=== PATIENT | male | born 1980 | race Caucasian/White ===

== ENCOUNTER 2023-02-18 09:53 | Emergency (ER) | payer MEDICAID, SELFPAY ==
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
[2023-02-18 10:41] VITALS: BP 110/64; PULSE 70; RESP 16; TEMP 36.7; O2SAT 99; BMI 25.0
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
== END 2023-02-18 14:08 | disposition home or self-care (01) ==
PROVIDERS: Emergency Provider Student in an Organized Health Care Education/Training Program
DX: S62.91XA Unspecified fracture of right hand, initial encounter for closed fracture (principal); X58.XXXA Exposure to other specified factors, initial encounter; Y93.9 Activity, unspecified; Y92.9 Unspecified place or not applicable; Y99.9 Unspecified external cause status
CPT/HCPCS: 73130; 99282; 99283

== ENCOUNTER 2023-02-20 10:58 | Outpatient (AMB) | payer MEDICAID, SELFPAY ==
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
== END 2023-02-20 11:42 | disposition home or self-care (01) ==
PROVIDERS: Visit Provider Physician Assistant
DX: S62.221A Displaced Rolando's fracture, right hand, initial encounter for closed fracture (principal)
CPT/HCPCS: 99204

== ENCOUNTER → 2023-02-20 10:58 | Outpatient (BNVA) | payer MEDICAID, SELFPAY | PROVIDERS: Visit Provider Physician Assistant | DX: S62.221A Displaced Rolando's fracture, right hand, initial encounter for closed fracture (principal) | CPT/HCPCS: 99212 ==

== ENCOUNTER 2023-02-26 06:13 | Day surgery (SDC) | payer MEDICAID, SELFPAY ==
--- NOTE | 2023-02-25 12:03 | P.CONAN_ITS ---
Documented by User: Angella Waggoner NP 02/25/23 12:13 HPI - Anesthesia Eval Consult details Narrative: 42yo M for Right Thumb Closed Reduction Perc Pinning vs ORIF No medical hx provided by surgical office. External med rec includes atorvastatin, lamotrigine, clonidine, abilify. Record request from [facility] via [employer]. Attempted telephone eval with patient but disconnected. PMFSH Active Problems Active Problems: All Active Problems (Updated 02/22/23 @ 08:12 by Ben Lr PA-C) Praveen fracture of right hand (Acute) Past Medical History Medical History Depression Smoker Surgical History Surgical History No pertinent past surgical history Social History Social History Household Members Other:: mother Housing: House Alcohol intake: never Patient Tobacco Use Status: Current everyday Tobacco user Tobacco use type: Cigarette Cigarette Packs Per Day: 1 Smoked in Last 30 Days: Yes Patient Interested in Nicotine Replacement: No Substance Use Type: Marijuana Substance Use Frequency: Daily Are you DNR?: No Advance Directives: No Advance Directives Information Provided: Yes Nutrition Risks: No Nutritional Risk Meds Allergies Allergy/AdvReac Type Severity Reaction Status Date / Time No Known Allergies Allergy Verified 02/26/23 06:12 Exam Exam Date and Time: February 25, 2023 1203 Assessment and Plan Assessment Anesthesia Assessment: Chart Reviewed Documented by User: Angie Do MD 02/26/23 08:34 PMFSH Past Medical History Medical History Depression Smoker Family History Family history of problems with anesthesia: No Surgical History Surgical History No pertinent past surgical history History of Problems with Anesthesia: No Social History Social History Household Members Other:: mother Housing: House Alcohol intake: never Patient Tobacco Use Status: Current everyday Tobacco user Tobacco use type: Cigarette Cigarette Packs Per Day: 1 Smoked in Last 30 Days: Yes Patient Interested in Nicotine Replacement: No Substance Use Type: Marijuana Substance Use Frequency: Daily Are you DNR?: No Advance Directives: No Advance Directives Information Provided: Yes Nutrition Risks: No Nutritional Risk Meds Allergies Allergy/AdvReac Type Severity Reaction Status Date / Time No Known Allergies Allergy Verified 02/26/23 06:12 Exam Airway Mallampati Class: II TM Dist: >3cm Neck ROM: Full Heart: rrr Lungs: cta Assessment and Plan Assessment Anesthesia Assessment: Anesthesia Plan Discussed Final Anesthetic Review Family History of Problems with Anesthesia: No History of Problems with Anesthesia: No NPO: Yes ASA Class: III (pt with methadone use , being evasive on dose and use . appears he is on 70 mg but took 30 mg or11 mg last night . had a panic attack in pre op before block and on entry to OR.) Final Preanesthetic Review: No Changes in Pt Med Stat, Meds/Allgs Chart Reviewed, Consent Obtained/Reviewed, Anes Risks/Benef Reviewed and DNR Form (If Appl.) Patient Risk: Intermediate Procedure Risk: Low Anesthetic Plan Anesthetic Plan: GA and Regional Block Disposition: Standard PACU
[2023-02-26] VITALS (9 sets, daily range): BP systolic 101–131; BP diastolic 54–77; PULSE 51–89; RESP 11–18; TEMP 36.4–36.8; O2SAT 97–100; BMI 25.1
--- NOTE | ~2023-02-26 | FL_ITS ---
EXAMINATION: XR FLUOROSCOPY WITH IMAGES CLINICAL INFORMATION: Or internal fixation. COMPARISON: February 18, 2023 TECHNIQUE: Fluoroscopy Supervised By: Dr. Laura Keating. Fluoroscopy Time: 52.6 seconds. Cumulative Dose: 1.7026 mGy. DAP: 0.1029 Gycm2. Images: 7. FINDINGS: Intraoperative fluoroscopy demonstrates OR internal fixation with pins for the comminuted displaced fracture proximal right first metacarpal bone. FL/FL guidance in OR IMPRESSION: Intraoperative fluoroscopy for orthopedic procedure.
[2023-02-26] MEDS: Lactated Ringers 1,000 ML 100 ML IVCONT (06:33)
--- NOTE | 2023-02-26 08:16 | MHC.SHP ---
Pre-Procedural Eval Section A Date of Service: 02/26/23 The patient is an INPATIENT: No Changes since office visit: No Cold of Flu in the past 2 weeks, No New Medical Problems, No Changes in Medication and No Patient answered all questions The History & Physical has been completed within 30 days and I have reviewed it.: Yes Section B Chief Complaint: Fracture of unspecified phalanx of right thumb, in Allergies: Allergies Allergy/AdvReac Type Severity Reaction Status Date / Time No Known Allergies Allergy Verified 02/26/23 06:12 Plan I have reviewed the history and physical and performed a pertinent physical examination on my patient. No changes have occurred unless specified. Time Spent With Patient Time: Total time managing care of this patient today ____ minutes.
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
== END 2023-02-26 10:48 | disposition home or self-care (01) ==
PROVIDERS: Visit Provider Orthopaedic Surgery
PROC: (CPT 26727; principal; 2023-02-26 07:30)
DX: S62.501A Fracture of unspecified phalanx of right thumb, initial encounter for closed fracture (principal); Y04.2XXA Assault by strike against or bumped into by another person, initial encounter; E78.5 Hyperlipidemia, unspecified; F17.210 Nicotine dependence, cigarettes, uncomplicated; Y93.9 Activity, unspecified; Y92.9 Unspecified place or not applicable; Y99.9 Unspecified external cause status
CPT/HCPCS: 26727; J0665; J0690; J2250; J2405; J2704; J2795; J3010

== ENCOUNTER → 2023-02-26 06:13 | Outpatient (BNV) | payer MEDICAID, SELFPAY | PROVIDERS: Visit Provider Orthopaedic Surgery | DX: S62.231A Other displaced fracture of base of first metacarpal bone, right hand, initial encounter for closed fracture (principal) | CPT/HCPCS: 26727 ==

== ENCOUNTER 2023-03-02 11:13 | Outpatient (REF) | payer MEDICAID, SELFPAY ==
--- NOTE | ~2023-03-02 | XR_ITS ---
EXAMINATION: XR HAND, RIGHT CLINICAL INFORMATION: Pain in the right hand. COMPARISON: X-rays of the right hand 02/18/2023, intraoperative imaging 02/26/2023. TECHNIQUE: 4 views of the right hand. FINDINGS: There are 2 K-wires crossing the area of the comminuted proximal first metacarpal fracture. The overall appearance and alignment is unchanged compared with the intraoperative images with hardware in place. There is overall improved alignment compared with the preoperative examination. The distal metacarpal fragment remains displaced posteriorly by 2 mm and radially 2.5 mm. The remaining bones, joints and soft tissues are unremarkable. XR/XR hand RT min 3V IMPRESSION: Postoperative changes related to orthopedic fixation of first metacarpal fracture with stable alignment compared with the intraoperative imaging and improved alignment compared with the preoperative x-ray.
== END 2023-03-02 11:14 | disposition home or self-care (01) ==
LOC: HO.HOSX 11:13
PROVIDERS: Visit Provider Physician Assistant
DX: S62.221D Displaced Rolando's fracture, right hand, subsequent encounter for fracture with routine healing (principal); M79.641 Pain in right hand; X58.XXXD Exposure to other specified factors, subsequent encounter
CPT/HCPCS: 73130

== ENCOUNTER 2023-03-02 12:43 | Outpatient (AMB) | payer MEDICAID, SELFPAY ==
--- NOTE | 2023-03-02 12:58 | MHC.OFFVIS ---
Intake Vital Signs 03/02/23 13:03 Height 5 ft 6 in Weight 165 lb BMI 26.6 Handedness Right Intake Visit Reasons: P/O rt Thumb CRPP 02/26/23 increase pain Intake Note: Jaison is a 42 year old right hand dominant male presents today for a post op appointment s/p rt Thumb CRPP 02/26/23. Patient reports he is not having to much pain. Denies numbness and tingling. Allergies No Known Allergies Allergy (Verified 03/02/23 13:03) HPI P/O rt Thumb CRPP 02/26/23 increase pain HPI Details 42-year-old right hand dominant male, who is Nigerien speaking, presents in the office today 4 days status post right 1st metacarpal fracture closed reduction percutaneous pinning, which was performed on 02/26/[address] Keating. While in the office today the patient reports he is not having to much pain. He denies numbness or tingling. PFSH Medical History Depression Smoker Surgical History No pertinent past surgical history Social History Household Members Other:: mother Housing: House Alcohol intake: never Patient Tobacco Use Status: Current everyday Tobacco user Tobacco use type: Cigarette Cigarette Packs Per Day: 1 Substance Use Type: Marijuana Review of Systems Const All systems reviewed & are unremarkable except as noted in HPI and below Physical Exam Vital Signs: BMI result Body Mass Index 26.6 Const General: cooperative, healthy appearing and no acute distress Resp Effort & Inspection: normal respiratory effort and able to speak in complete sentences Cardio Rate: regular rate Peripheral pulses: Peripheral pulses 2+ throughout GI Palpation (GI): Soft to palpation Skin Lesions: no lesions Rashes: no rashes Extrem Other: Right thumb: Pin site is clean, dry, and intact. No surround erythema or drainage. No signs of infection. Sensation reporting numbness and tingling along the ulnar and radial digital nerve distributions. Capillary refill is brisk. Office Procedures Casting/Splints 67625-Rjxylvp Splint Application Procedure code (CPT) selection complete Assessment & Plan Assessment & Plan (1) Praveen fracture of right hand: Comment: Right 1st metacarpal fracture closed reduction percutaneous pinning 02/26/2023 AR Code(s): S62.221A - Displaced Praveen's fracture, right hand, initial encounter for closed fracture Qualifiers: Encounter type: initial encounter Fracture alignment: displaced Fracture type: closed Qualified Code(s): S62.221A - Displaced Praveen's fracture, right hand, initial encounter for closed fracture Plan Mr. Renan Oliver is a 42-year-old right hand dominant male, who is Nigerien speaking, presents in the office today 4 days status post right 1st metacarpal fracture closed reduction percutaneous pinning, which was performed on 02/26/[address] Keating. While in the office today the patient reports he is not having to much pain. He denies numbness or tingling. The patient was placed back into a splint while in the office today, after cleaning the pin site. He was educated on signs of infection, which are as follows but not limited to erythema, edema, drainage, or warmth. If he is to experience any of these symptoms he is to contact the office immediately or present to the ED. He was also educated should the pins begin to come out he is not to push them back in due to infection risk. Follow up will be at his regularly scheduled appointment, or sooner if needed. X-rays of the right hand which were obtained while in the office today and were reviewed by me, Milana Woodruff PA-C, revealed pin placement is identical to intra-operative photos taken. Orders: Orders XR hand RT min 3V Today M79.643 - Pain in unspecified hand Patient Instructions: Scribed for Milana Woodruff PA-C by Kerri Melissa ophthalmic medical technologist, on 03/02/2023 at 12:47 pm, EST. Coding Level of Care Code Global (46617) Diagnoses Closed displaced Praveen's fracture of right thumb, initial encounter S62.221A Encounter type: initial encounter Fracture alignment: displaced Fracture type: closed CPT Codes Splint - CPT: 53327-Sygtmtq Splint Application ([id number])
[2023-03-02 13:03] VITALS: BMI 26.6
== END 2023-03-02 14:27 | disposition home or self-care (01) ==
PROVIDERS: Visit Provider Physician Assistant
DX: S62.221A Displaced Rolando's fracture, right hand, initial encounter for closed fracture (principal)
CPT/HCPCS: 29125; 99024

== ENCOUNTER 2023-03-09 10:59 | Outpatient (REF) | payer MEDICAID, SELFPAY ==
--- NOTE | ~2023-03-09 | XR_ITS ---
EXAMINATION: XR HAND, RIGHT CLINICAL INFORMATION: Comminuted fracture at the base of the first metacarpal bone COMPARISON: 02/18/2023 and 03/02/2023 TECHNIQUE: PA, lateral, and oblique views of the right hand. FINDINGS: Patient is status post placement of 2 K wires crossing the fracture through the base of the fifth metacarpal bone the position of fragments and hardware is stable. Another fracture seen at the base of the distal phalanx of fifth finger stable. No new fractures identified. XR/XR hand RT min 3V IMPRESSION: No interval change
== END 2023-03-09 11:00 | disposition home or self-care (01) ==
LOC: HO.HOSX 10:59
PROVIDERS: Visit Provider Physician Assistant
DX: S62.221D Displaced Rolando's fracture, right hand, subsequent encounter for fracture with routine healing (principal); M20.011 Mallet finger of right finger(s)
CPT/HCPCS: 29085; 73130

== ENCOUNTER 2023-03-09 13:05 | Outpatient (AMB) | payer MEDICAID, SELFPAY ==
--- NOTE | 2023-03-09 13:16 | A.OFFVIS_ITS ---
Intake Vital Signs 03/09/23 13:17 Height 5 ft 6 in Weight 165 lb BMI 26.6 Intake Visit Reasons: PO-Rt Thumb CRPP vs ORIF 02/26 NE Intake Note: Jaison hightower 42 year old right hand dominant male presents today for a post op appointment of right thumb CRPP, DOS 02/26/23. Patient reports he is doing well, states mild soreness. Allergies No Known Allergies Allergy (Verified 03/09/23 13:19) HPI PO-Rt Thumb CRPP vs ORIF 02/26 NE HPI Details 42-year-old right hand dominant male who returns to the office today with an dust mop maker for post-op right thumb CRPP, 02/26/[address] Keating. He continues to have mild soreness and experiences a sharp stabbing pain in his thumb with up and down movement. He finds relief with ibuprofen and Tylenol. He is doing well overall and has no other concerns today. [facility] Medical History Depression Smoker Surgical History No pertinent past surgical history Household Members Other:: mother Housing: House Alcohol intake: never Patient Tobacco Use Status: Current everyday Tobacco user Tobacco use type: Cigarette Cigarette Packs Per Day: 1 Substance Use Type: Marijuana Review of Systems Const All systems reviewed & are unremarkable except as noted in HPI and below Physical Exam Vital Signs: BMI result Body Mass Index 26.6 Extrem Other: Right thumb: Normal to inspection. Pin is intact. There is no redness or drainage. NVI. Right small finger: Slight mallet deformity over the DIP joint. NVI. Office Procedures Casting/Splints [id number]-Ujvw/Wrist Cast Application Procedure code (CPT) selection complete Assessment & Plan Assessment & Plan (1) Praveen fracture of right hand: Comment: Right 1st metacarpal fracture closed reduction percutaneous pinning 02/26/2023 AR Code(s): S62.221A - Displaced Praveen's fracture, right hand, initial encounter for closed fracture Qualifiers: Encounter type: subsequent encounter Fracture alignment: displaced Fracture type: closed Fracture healing: with routine healing Qualified Code(s): S62.221D - Displaced Praveen's fracture, right hand, subsequent encounter for fracture with routine healing (2) Mallet deformity of right little finger: Code(s): M20.011 - Mallet finger of right finger(s) Plan The pin site was cleaned and well-padded with xeroform and gauze. He was placed in a short arm thumb spica cast which he will wear for the next 4 weeks. I did talk with him about keeping the cast clean and dry. If there are any concerns of discomfort in the cast, increased pain or if he gets it soiled, he should come in immediately for a cast change to prevent infection. For his right small finger, he was placed in a mallet finger brace which he will wear for the next 6 weeks. I would like to see him back in 4 weeks for cast off, x-rays and potential removal of pins, sooner if needed. Orders: Orders XR hand RT min 3V Today M79.641 - Pain in right hand Patient Instructions: Scribed for Ben Lr PA-C, by Josiah Michael medical staff director, on 03/09/2023 at 1:15 PM EST. I, Ben Lr PA-C, have personally reviewed and agree with the information entered by the scribe. Coding Level of Care Code Global (47700) Diagnoses Closed displaced Praveen's fracture of right thumb with routine healing, subseq uent encounter S62.221D Encounter type: subsequent encounter Fracture alignment: displaced Fracture type: closed Fracture healing: with routine healing Mallet deformity of right little finger M20.011 CPT Codes Casting - CPT: 15319-Abfz/Wrist Cast Application ([id number])
[2023-03-09 13:17] VITALS: BMI 26.6
== END 2023-03-09 14:44 | disposition home or self-care (01) ==
PROVIDERS: Visit Provider Physician Assistant
DX: S62.221D Displaced Rolando's fracture, right hand, subsequent encounter for fracture with routine healing (principal); M20.011 Mallet finger of right finger(s)
CPT/HCPCS: 29085; 99024

== ENCOUNTER 2023-04-06 13:34 | Emergency (ER) | payer MEDICAID, SELFPAY ==
[2023-04-06 13:50] VITALS: BP 113/60; BP 154/60; PULSE 113; PULSE 58; RESP 10; O2SAT 98; O2SAT 99; BMI 25.1
--- NOTE | 2023-04-06 13:54 | ED.OVERDOSE ---
HPI - Overdose General Chief Complaint: Overdose Stated Complaint: OVERDOSE, FOUND NODDING OFF IN STREET PER EMS Time Seen by Provider: 04/06/23 13:51 Source: patient and RN notes reviewed Mode of arrival: ambulatory Limitations: no limitations History of Present Illness HPI Narrative: This is a 43-year-old male, with a history of substance use disorder, presenting to the emergency department via EMS after being found on the street nodding off . patient admits to using half a bag of heroin today. Patient states that he did not fall today and is feeling well. He has no current complaints and would like to return home. Denies any suicidal or homicidal ideations. No visual or auditory hallucinations. No other complaints or concerns at this time. MD complaint: accidental overdose Onset (ago): hour(s) Context: Accidental Overdose: wanted to get high Treatments Prior to Arrival: none Related Data Previous Rx's Medication Instructions Recorded acetaminophen 500 mg tablet 1,000 mg (2 x 500 mg) PO QID PRN 02/18/23 pain #30 tabs ibuprofen 600 mg tablet 600 mg PO Q6H PRN pain #20 tabs 02/18/23 Allergies Allergy/AdvReac Type Severity Reaction Status Date / Time No Known Allergies Allergy Verified 04/08/23 13:59 Review of Systems Review of Systems: Yes all other systems are reviewed and are negative Constitutional: Constitutional: Reports as per [facility] Past Medical History Attestation statement: The following information was validated with the patient. Medical History Depression Smoker Surgical History No pertinent past surgical history Social History Social History Household Members Other:: mother Housing: House Alcohol intake: never Patient Tobacco Use Status: Current everyday Tobacco user Tobacco use type: Cigarette Cigarette Packs Per Day: 1 Substance Use Type: Marijuana Physical Exam Vital Signs: Vital Signs: Last Vital Signs Pulse 113 H 04/06/23 13:50 Resp 10 L 04/06/23 13:50 BP 113/60 04/06/23 13:50 Pulse Ox 99 04/06/23 13:50 O2 Del Method Room Air 04/06/23 13:50 BMI result Body Mass Index 25.1 Const: General: cooperative, comfortable and no acute distress Orientation/consciousness: patient oriented x3 Limitations: no limitations HEENT: Head: Yes normal to inspection, Yes normocephalic and Yes atraumatic Ears: hearing grossly normal bilaterally General nose exam: Normal external nose present Face and sinus: Yes normal facial exam Mouth: Normal oral and palatal mucosa present, oropharynx normal and moist mucous membranes Throat: Yes posterior oropharynx normal Eyes: General: appearance normal, both eyes and all related structures Eyelids: Yes eyelids normal Conjunctivae: conjunctivae normal Sclerae: sclerae normal Pupils: Equal, round and reactive pupils present EOM: EOMs intact bilaterally Neck: Neck: Yes normal visual inspection, Yes full ROM and Yes no lymphadenopathy Lymphatic: no lymphadenopathy noted Chest: Chest palpation & inspection: normal inspection of the chest Resp: Effort & Inspection: normal respiratory effort and able to speak in complete sentences Auscultation: clear to auscultation bilaterally, no crackles, no rales, no rhonchi and no wheezes Cardio: Rate: regular rate Rhythm: regular rhythm Heart sounds: S1 normal heart sound present and S2 normal heart sound present GI: Inspection: Yes normal to inspection Skin: General skin exam: no rashes or lesions noted Trauma: no lacerations or abrasions Wounds: no wounds Neuro: General: patient oriented x3 and moves all extremities Cranial nerves: Yes Equal, round and reactive pupils present Extrem: General: Yes normal to inspection Right upper extremity: normal to inspection Left upper extremity: normal to inspection Right lower extremity: normal to inspection Left lower extremity: normal to inspection Course Reevaluation(s) Reevaluation #1: After 20 minutes of receiving narcan, pt demanding to be discharged. He is alert, ambuatory, speaking in full sentences and fully neurologically intact. He is clinically sober. I explained to patient that he had overdosed and that narcan can wear off, causing him to overdose again. I explained the risks and benefits of leaving against medical advice, he states that knowing the risks of leaving without being monitored can cause , he still wishes to be discharged. Given he is clinically sober he can make these decisions. AMA paperwork filed. Medications Administered Discontinued Medications Generic Name Dose Route Start Last Admin Trade Name Freq PRN Reason Stop Dose Admin Naloxone HCl 4 mg 04/06/23 13:55 04/06/23 13:55 Naloxone Hcl Nasal 4 Mg Hamilton NOSTRILALT 04/06/23 13:56 4 mg ONCE ONE Administration Medical Decision Making Medical Decision Making [facility] Narrative: This is a 43-year-old male presenting to the emergency department after being found on the street nodding off. On arrival, patient's oxygen saturation dipped to 90% on room air, with a respiratory rate of 10 respirations per minute. He was easily arousable however but immediately nods off. Pt given Narcan 4mg intranasally with positive result. He denies any SI/HI. Oxygen saturation improved to 99%. Will monitor pt for 2 hours to ensure good relief after narcan Differential Diagnosis Differential Diagnoses: The differential diagnosis associated with the presentation includes opioid overdose, fatigue, polysubstance abuse Lab Data [facility] Lab Attestation statement: I reviewed the patient's lab results. Radiology Impression Discussion of test interpretation with radiology: I have reviewed the radiologist's reading. External Record Review External record reviewed: Inpatient record, Office record, Outpatient record, Prior outpatient labs, Prior outpatient radiology, Primary care record and Outside ED record Discharge Plan Discharge Clinical Impression: Drug overdose Patient Disposition: Left Against Medical Advice Instructions: Adult Overdose (ED) Additional Instructions: you left the emergency room today against medical advice after he overdosed. He received Narcan which reverses opioid overdoses. we recommended you stay in the emergency room for observation however you adamantly refused. The educated you that leaving against medical advice can have deadly consequences, despite knowing these risks you still requested to be discharged immediately. stop using drugs as they will kill you. I sent over a prescription of Narcan to the pharmacy, you can pick this up at your earliest convenience. If any new or worsening symptoms occur, please return for re-evaluation. Prescriptions: No Action acetaminophen 500 mg tablet 1,000 mg PO QID PRN (Reason: pain) Qty: 30 0RF ibuprofen 600 mg tablet 600 mg PO Q6H PRN (Reason: pain) Qty: 20 0RF Stand Alone Forms: Against Medical Advice Interventions: ED Discharge Assessment Last Done: 04/06/23 14:38 Discharge Date/Time: 04/06/23 14:10
[2023-04-06] MEDS: Naloxone HCl Nasal 4 MG SPRAY NOSTRILALT (13:55)
--- NOTE | 2023-04-06 14:12 | PC.NURSE ---
pt comes in via ems after overdosing. pt nodding off during triage assessment nd unable to stay awake. PA alerted and narcan ordered. narcan given via left nare. Pt became more alert and awake and drank some gingerale. during security changeover, pt decided to leave. Pa and RN encouraged pt to stay for observation but pt chose to leave AMA
== END 2023-04-06 14:10 | disposition left against medical advice (07) ==
PROVIDERS: Emergency Provider Emergency Medicine
DX: T40.1X1A Poisoning by heroin, accidental (unintentional), initial encounter (principal); Y92.410 Unspecified street and highway as the place of occurrence of the external cause
CPT/HCPCS: 99282; 99283

== ENCOUNTER 2023-04-08 06:34 | Outpatient (REF) | payer MEDICAID, SELFPAY | END 2023-04-08 06:35 | disposition home or self-care (01) | LOC: HO.HOSX 06:34 | PROVIDERS: Visit Provider Physician Assistant | DX: S62.221D Displaced Rolando's fracture, right hand, subsequent encounter for fracture with routine healing (principal); M79.641 Pain in right hand; M20.011 Mallet finger of right finger(s); X58.XXXD Exposure to other specified factors, subsequent encounter | CPT/HCPCS: 73130; 99212 ==

== ENCOUNTER 2023-04-08 13:24 | Outpatient (AMB) | payer MEDICAID, SELFPAY ==
--- NOTE | 2023-04-08 13:36 | A.OFFVIS_ITS ---
Intake Intake Visit Reasons: PO-Rt Thumb CRPP vs ORIF 02/26/23 NE Intake Note: Jaison a 42 year old right hand dominant male presents today for a post op appointment of right thumb CRPP, DOS 02/26/23. Patient reports he is doing well, states no pain or discomfort. Allergies No Known Allergies Allergy (Verified 04/08/23 13:59) Medication List - Last Reconciled 04/08/23 by Ben Lr PA-C acetaminophen 1,000 mg (2 x 500 mg) PO QID PRN ibuprofen 600 mg PO Q6H PRN HPI PO-Rt Thumb CRPP vs ORIF 02/26/23 NE HPI Details 43-year-old right hand dominant male who returns to the office today with an horse stud manager for post-op right thumb CRPP, 02/26/[address] Keaitng. He states he has no pain and is doing well overall. He has no concerns today. 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 [facility] Medical History Depression Smoker Surgical History No pertinent past surgical history Social History Household Members Other:: mother Housing: House Alcohol intake: never Patient Tobacco Use Status: Current everyday Tobacco user Tobacco use type: Cigarette Cigarette Packs Per Day: 1 Substance Use Type: Marijuana Review of Systems Const All systems reviewed & are unremarkable except as noted in HPI and below Physical Exam Extrem Other: Right thumb: Pin site is clean, dry and intact. No drainage. No tenderness along the base of the thumb. Right small finger: He can fully flex and extend the digits. No extension lag noted. No tenderness over the DIP. Results Reviewed Results Reviewed: XR hand RT obtained in the office today 1. Comminuted fracture base of first metacarpal.which shows bony healing, pinn intact 2. Intra-articular fracture base distal phalanx fifth digit.with interval healing Assessment & Plan Assessment & Plan (1) Praveen fracture of right hand: Comment: Right 1st metacarpal fracture closed reduction percutaneous pinning 02/26/2023 AR Code(s): S62.221A - Displaced Praveen's fracture, right hand, initial encounter for closed fracture Qualifiers: Encounter type: subsequent encounter Fracture alignment: displaced Fracture healing: with routine healing Fracture type: closed Qualified Code(s): S62.221D - Displaced Praveen's fracture, right hand, subsequent encounter for fracture with routine healing (2) Mallet deformity of right little finger: Code(s): M20.011 - Mallet finger of right finger(s) Plan Pin sites were cleanred and the pinn was removed in office today without complications. X-rays were obtained after the pin was removed which show stable fracture alignment and interval healing. He was placed in a thumb spice Velcro wrist splint which he will remove for hygiene and physical therapy exercises. He will avoid any type of lifting greater than a cellphone as he is still healing from the surgery. He will remain out of work till his next appointment in [address] Keating, sooner if needed. He was also referred to a course of occupational therapy in the office today for his right hand. Orders: Orders XR hand RT min 3V Today M79.641 - Pain in right hand OT Evaluation and Treatment Today S62.221A - Displaced Praveen's fracture, right hand, initial encounter for closed fracture XR hand RT min 3V Today M79.641 - Pain in right hand Patient Instructions: Scribed for Ben Lr PA-C, by Josiah Michael clinical laboratory medical director, on 04/08/2023 at 1:30 PM RASHAD. IBen PA-C, have personally reviewed and agree with the information entered by the scribe. Coding Level of Care Code Global (23801) Diagnoses Closed displaced Praveen's fracture of right thumb with routine healing, subsequent encounter S62.221D Encounter type: subsequent encounter Fracture alignment: displaced Fracture healing: with routine healing Fracture type: closed Mallet deformity of right little finger M20.011
== END 2023-04-08 14:38 | disposition home or self-care (01) ==
PROVIDERS: Visit Provider Physician Assistant
DX: S62.231D Other displaced fracture of base of first metacarpal bone, right hand, subsequent encounter for fracture with routine healing (principal)
CPT/HCPCS: 99024

== ENCOUNTER 2023-05-20 11:50 | Outpatient (REF) | payer MEDICAID, SELFPAY ==
--- NOTE | ~2023-05-20 | XR_ITS ---
EXAMINATION: XR HAND, RIGHT CLINICAL INFORMATION: Pain. COMPARISON: Prior radiographs, most recently 04/08/2023. TECHNIQUE: PA, lateral, and oblique views of the right hand. FINDINGS: A comminuted fracture is redemonstrated of the shaft and base of the right first metacarpal bone, with fracture lines now largely resolved. There is a stable fracture deformity, with remodeling. No dislocation is seen. There is no bone erosion. The proximal and distal carpal rows are intact. This no focal soft tissue swelling, gas or foreign body. XR/XR hand RT min 3V IMPRESSION: A healing comminuted fracture is redemonstrated of the proximal right first metacarpal bone, with bony remodeling and fracture lines largely resolved.
== END 2023-05-20 11:51 | disposition home or self-care (01) ==
LOC: HO.HOSX 11:50
PROVIDERS: Visit Provider Orthopaedic Surgery
DX: M79.641 Pain in right hand (principal); S62.221A Displaced Rolando's fracture, right hand, initial encounter for closed fracture; S62.636A Displaced fracture of distal phalanx of right little finger, initial encounter for closed fracture; Y04.2XXA Assault by strike against or bumped into by another person, initial encounter; Y93.9 Activity, unspecified; Y92.9 Unspecified place or not applicable; Y99.9 Unspecified external cause status
CPT/HCPCS: 73130; 99212

== ENCOUNTER 2023-05-20 12:53 | Outpatient (AMB) | payer MEDICAID, SELFPAY ==
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
[2023-05-20 13:11] VITALS: BMI 25.1
== END 2023-05-20 13:50 | disposition home or self-care (01) ==
PROVIDERS: Visit Provider Orthopaedic Surgery
DX: S62.221D Displaced Rolando's fracture, right hand, subsequent encounter for fracture with routine healing (principal); S62.636A Displaced fracture of distal phalanx of right little finger, initial encounter for closed fracture
CPT/HCPCS: 99024

== ENCOUNTER 2023-05-21 13:30 | Outpatient (RCR) | payer MEDICAID, SELFPAY ==
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
--- NOTE | 2023-05-21 16:13 | MHC.OT.DC ---
[address] [phone] F: [phone] Occupational Therapy Discharge Note Patient Name: Jaison Oliver Provider: Ben Lr Diagnosis: (R) Praveen fracture with CRPP Date of Surgery: 02/26/23 Date of Evaluation: 05/04/23 Date of Discharge: Treatments to Date: 5 Cancellations to Date: 0 No Shows to Date: 0 Discharge Status: Achieved Goals Improved Function Patient Elected to Stop Discharge Summary: Upon arrival patient stated he had 0/10 pain at rest and a discomfort during movement. Per patient report he had his follow up with his physician who cleared him to return to work on Thursday. Patient stated he would like today's session to be his last. HEP was reviewed and he was educated in the benefits of performing his HEP. Patient's manager contracting strength and ROM of motion were assessed. Currently patient has increased his IP flexion by 10* as it is 41*, and radial abduction by 20* as it is currently 65*. His (R) manager contracting strength is 80lbs. As patient has increased his ROM, manager contracting strength and his pain has decreased achieving his goals patient is discharged from skilled OT services. Thank you for your referral. Electronically Signed By: TAJ Sifuentes/Peyman, CLT Reviewed/agree with student documentation: N/A Therapist: Please Sign and return to therapist, thank you for your referral.
== END 2023-06-02 16:19 | disposition home or self-care (01) ==
LOC: HO.OT 13:30
PROVIDERS: PCP Registered Nurse; Visit Provider Physician Assistant
DX: S62.221D Displaced Rolando's fracture, right hand, subsequent encounter for fracture with routine healing (principal)
CPT/HCPCS: 97110; 97140; 97166; 97530; 97535

== ENCOUNTER 2024-03-07 10:18 | Outpatient (AMB) | payer MEDICAID, SELFPAY ==
--- NOTE | 2024-03-07 10:17 | A.OFFVIS_ITS ---
Vital Signs 03/07/24 10:23 Height 5 ft 6 in Weight 170 lb BMI 27.4 BP 134/74 Blood Pressure Location Rt brachial Position Sitting Pulse 72 Intake Visit Reasons: Right inguinal hernia Intake Note: Patient referred by Deni Worthy for right inguinal hernia. Present for 3m. Patient c/o: enlarging, painful w/touch. Licensed Final Expense Agents Required: Yes Licensed Final Expense Agents Name: Alida PRITCHETT Accompanied by: Self / Same As Patient Allergies No Known Allergies Allergy (Verified 03/07/24 10:22) HPI Comments Details: Patient presents because of a symptomatic right inguinal hernia. He has had this least 3 months time. It is increasing in size, become more symptomatic. He would like to have it repaired. Patient is taking Suboxone injections and this causes him to be constipated and he thinks this straining and pushing from this is the etiology of his hernia. Patient otherwise is tolerating a diet. He is occasionally constipated as noted above. He has no other GI issues or complaints. Chart was reviewed and patient evaluated [facility] Medical History Depression Smoker Surgical History No pertinent past surgical history Social History Household Members Other:: mother Housing: House Alcohol intake: never Patient Tobacco Use Status: Current everyday Tobacco user Tobacco use type: Cigarette Cigarette Packs Per Day: 1 Substance Use Type: Marijuana Physical Exam Vital Signs: Last Vital Signs Pulse 72 03/07/24 10:23 BP 134/74 03/07/24 10:23 BMI result Body Mass Index 27.4 Chest Other: Chest breath sounds bilaterally, HS 1 in 2 GI Other: Patient was examined both supine and standing with Valsalva. Abdomen is soft. Patient has some indurated area of his mid abdominal wall soft tissue which he says is secondary from his injection sites. Left groin negative. Genitalia within normal limits. Very large incarcerated right inguinal hernia Assessment & Plan Assessment & Plan (1) Incarcerated right inguinal hernia: Code(s): K40.30 - Unilateral inguinal hernia, with obstruction, without gangrene, not specified as recurrent Category: Surgical Plan Risks, benefits, and alternatives of open right inguinal hernia repair with mesh reviewed with the patient and included but not limited to bleeding, infection, recurrence, numbness, pain, scarring the patient wished to proceed. All questions answered. Arrangements were made for this. Coding Level of Care Code New Pt Level 5 (51228) Diagnoses Incarcerated right inguinal hernia K40.30
[2024-03-07 10:23] VITALS: BP 134/74; PULSE 72; BMI 27.4
== END 2024-03-07 10:37 | disposition home or self-care (01) ==
LOC: HO.HGS 10:18
PROVIDERS: PCP Registered Nurse; Visit Provider Surgery
DX: K40.30 Unilateral inguinal hernia, with obstruction, without gangrene, not specified as recurrent (principal)
CPT/HCPCS: 99204

== ENCOUNTER → 2024-03-07 10:18 | Outpatient (BNVA) | payer MEDICAID, SELFPAY | PROVIDERS: PCP Registered Nurse; Visit Provider Surgery | DX: K40.30 Unilateral inguinal hernia, with obstruction, without gangrene, not specified as recurrent (principal); Z79.899 Other long term (current) drug therapy | CPT/HCPCS: 99202 ==

== ENCOUNTER 2024-03-18 11:13 | Outpatient (REF) | payer MEDICAID, SELFPAY ==
[2024-03-18 13:11] LABS: MANUAL DIFF FLAG NO
[2024-03-18 13:21] LABS: Basophils Percent Auto 0.4 % (0-2); Eosinophils Absolute Auto 0.1 X10*3/uL (0.0-0.4); Eosinophils Percent Auto 2.1 % (0-4); Hematocrit 45.2 % (42.0-52.0); Hemoglobin 15.7 g/dl (14.0-18.0); Imm Gran Abs Auto 0.02 X10*3/uL (0.00-0.03); Imm Gran Pct Auto 0.4 % (0.0-0.4); Lymphocytes Percent Auto 40.6 % (20-40); Mean Corpuscular HGB Conc 34.7 g/dl (31.0-36.0); Mean Corpuscular Hemoglobin 30.4 pg (27.0-33.0); Mean Corpuscular Volume 87.4 fL (80.0-98.0); Mean Platelet Volume 11.3 fL (9.4-12.4); Monocytes Absolute Auto 0.5 X10*3/uL (0.1-1.2); Monocytes Percent Auto 9.4 % (2-11); Neutrophils Absolute Auto 2.3 x10*3/uL (2.0-8.3); Neutrophils Percent Auto 47.1 % (45-73); Platelet Count 178 X10*3/uL (160-400); Red Blood Count 5.17 X10*6/uL (4.60-5.80); Red Cell Distribution Width 13.3 % (11.0-16.0); White Blood Count 4.8 X10*3/uL (4.8-10.8)
[2024-03-18 13:37] LABS: Alanine Aminotransferase 25 U/L (0-40); Albumin Level 4.4 g/dL (3.5-5.0); Alkaline Phosphatase 69 U/L (39-117); Aspartate Amino Transferase 28 U/L (5-37); Bilirubin Direct 0.2 mg/dL (0.0-0.5); Bilirubin Total 0.5 mg/dL (0.0-1.0); Blood Urea Nitrogen 12 mg/dL (9-16); Estimated Glomerular Filt Rate > 60; Total Protein 7.3 g/dL (6.5-8.0)
[2024-03-21 08:01] LABS: Hepatitis A Antibody IgG Nonreactive (Nonreactive); ~Hepatitis A Antibody IgG 0.43 S/CO (0.00-0.99)
[2024-03-21 08:34] LABS: HBS Num1 814.43 mIU/mL (0-7.99); HBc Num1 0.04 S/CO (0.00-0.79); HBsAGNum1 0.41 S/CO (0.00-0.99); HIV AB/AG Nonreactive (Nonreactive); HIV Num 1 0.07 S/CO (0.00-0.99); Hepatitis B Core Antibody Nonreactive (Nonreactive); Hepatitis B Surface Antigen Negative (Negative); ~HepC Num1 0.18 S/CO (0.00-0.79); ~Hepatitis B Surface Antibody REACTIVE (Nonreactive); ~Hepatitis C Antibody Nonreactive (Nonreactive)
[2024-03-21 17:13] LABS: RPR Rapid Plasma Reagin NON-REACTIVE (NON-REACTIVE)
[2024-03-23 16:08] LABS: TS Negative Control PASSED; TS Panel A 1; TS Panel B 0; TS Positive Control PASSED; TSpotTB NEGATIVE
== END 2024-03-18 11:14 | disposition home or self-care (01) ==
LOC: HO.HHCL 11:13
PROVIDERS: Visit Provider Emergency Medicine
DX: F11.90 Opioid use, unspecified, uncomplicated (principal)
CPT/HCPCS: 36415; 80076; 82565; 84520; 85025; 86481; 86592; 86704; 86706; 86708; 86803; 87340; 87389

== ENCOUNTER 2024-04-01 10:47 | Outpatient (REF) | payer MEDICAID, SELFPAY ==
[2024-04-01 11:57] LABS: Cholesterol 160 mg/dL (<200); HDL Cholesterol 57 mg/dL (>40); LDL Cholesterol Calculated 92 mg/dL (<100); Triglycerides 58 mg/dL (<150)
[2024-04-01 13:52] LABS: CT PCR NOT DETECTED (Not Detect.); NG PCR NOT DETECTED (Not Detect.)
== END 2024-04-01 10:48 | disposition home or self-care (01) ==
LOC: HO.HHCL 10:47
PROVIDERS: Emergency Medicine; Visit Provider Nurse Practitioner
DX: F11.90 Opioid use, unspecified, uncomplicated (principal); E78.2 Mixed hyperlipidemia
CPT/HCPCS: 36415; 80061; 87491; 87591

== ENCOUNTER 2024-05-16 10:44 | Outpatient (AMB) | payer MEDICAID, SELFPAY ==
--- NOTE | 2024-05-16 10:45 | MHC.OFFVIS ---
Vital Signs 05/16/24 10:46 Height 5 ft 6 in Weight 174 lb BMI 28.1 BP 118/61 Blood Pressure Location Rt brachial Position Sitting Pulse 75 Intake Visit Reasons: unilateral inguinal hernia Intake Note: Patient referred by pcp Rika Ward NP for Unilateral inguinal hernia. Present for 6-7m. Patient c/o: feels like there's other lumps near it. Denies nausea, vomiting, diarrhea. Supervisor Plate Forming Required: No Accompanied by: Self / Same As Patient Allergies No Known Allergies Allergy (Verified 05/16/24 10:54) HPI Comments Details: Patient was presents with a 6-7 month history of a right inguinal/groin hernia. Because of progression of symptoms, he presents here for further evaluation. Patient otherwise tolerating a diet. Having regular bowel habits. He is quite active but has not been doing any workouts because of the symptomatic nature of the hernia. Chart was reviewed and patient evaluated. He is currently in a drug rehab clinic setting. [facility] Medical History Depression Smoker Surgical History No pertinent past surgical history Social History Household Members Other:: mother Housing: House Alcohol intake: never Patient Tobacco Use Status: Current everyday Tobacco user Tobacco use type: Cigarette Cigarette Packs Per Day: 1 Substance Use Type: Marijuana Physical Exam Vital Signs: Last Vital Signs Pulse 75 05/16/24 10:46 BP 118/61 05/16/24 10:46 BMI result Body Mass Index 28.1 Chest Other: Chest breath sounds bilaterally, HS 1 in 2 GI Other: Patient was examined both supine and standing with Valsalva. Abdomen is soft, benign. Left groin negative. Genitalia within normal limits. Large reducible right inguinal hernia Assessment & Plan Assessment & Plan (1) Incarcerated right inguinal hernia: Code(s): K40.30 - Unilateral inguinal hernia, with obstruction, without gangrene, not specified as recurrent Category: Surgical Plan Risks, benefits, and alternatives of open right inguinal hernia repair with mesh were reviewed with the patient included but not limited to bleeding, infection, recurrence, numbness, pain, scarring the patient wished to proceed. All questions answered. Arrangements were made for this on a day which is convenient for him. Coding Level of Care Code New Pt Level 5 (60962) Diagnoses Incarcerated right inguinal hernia K40.30
[2024-05-16 10:46] VITALS: BP 118/61; PULSE 75; BMI 28.1
--- OUTSIDE RECORDS SUMMARY | 2024-05-16 11:37 | XMS_ITS | Encounter Summary ---
Author Organization [employer] Address [address] [facility] [address] [place] [address] Care Team Providers Care Inspector Automatic Typewriter Name Role Phone Rkia Schmidt IGNACIA Primary Care Provider [phone] Reason for Visit * Reason Comments Med Refill Encounter Details Date Type Department Care Team ([facility] st Contact Info) Description 05/06/2024 Refill [facility] MEDICINE [address] [place] [address] Deni Mejia MD [address] [place] [address] Tobacco use disorder Social History Tobacco Use Types Packs/Day Years Used Date Smoking Tobacco: Every Day Cigarettes 1 25 Smokeless Tobacco: Current Comments:Tried quitting in t he past. Interested Alcohol Use Standard Drinks/Week Comments Never 4 (1 standard drink = 0.6 oz pur e alcohol) socially, rarely Depression Answer Date Recorded Patient Health Questionnaire-9 Score 0 01/29/2024 Patient Health Questionnaire-9 Score 0 01/29/2024 Last PHQ-9: Questionnaire Data Not on file 1 Housing Stability Answer Date Recorded What is your housing situation today? I do not have housing (Staying with others, in a hotel, in a fci, living outside on the street, on a beach, in a car, or in a park 03/25/[address] you li ve. Do you have problems with any of the following? I am not sure 03/25/2024 Food Insecurity Answer Date Recorded Within the past 12 months, y ou worried that your food would run out before you got money to buy more: Never True 01/29/2024 Within the past 12 months,th e food you bought just didn't last and you didn't have enough money to get more: Never True Transportation Answer Date Recorded In the past 12 months, has l ack of transportation kept you from medical appts, meetings, work or from getting things needed for daily living? I am not sure 03/25/2024 Utilities Answer Date Recorded In the past 12 months, has t he electric, gas, oil or water company threatened to shut off services in your home? I am not sure 03/25/2024 Depression Answer Date Recorded Patient Health Questionnaire-2 Score 3 03/25/2024 Internet Access Answer Date Recorded Internet Access Q1 Yes 03/25/2024 Internet Access Q2 Internet/Wi-Fi access is not available where I live 03/25/2024 Sex and Gender Information Value Date Recorded Sex Assigned at Male 02/10/2022 10:35 AM EDT Legal Sex Male 10:35 AM EDT Gender Identity Male 02/10/2022 10:35 AM EDT Sexual Orientation Straight 02/10/2022 10 :35 AM EDT documented as of this encounter Plan of Treatment Upcoming Encounters Date Type Department Care Team (Late st Contact Info) Description 05/20/2024 10:00 AM EST Clinical Support [facility] MEDICINE [address] [place] [address] Kary Earl, KATIANA documented as of this encounter Visit Diagnoses Diagnosis Tobacco use disorder documented in this encounter Additional Health Concerns Assessment Noted Time PHQ-9 Depression Total Score: 0 01/29/20 24 10:30 AM EDT documented as of this encounter Care Teams Inspector Automatic Typewriter Relationship Specialty Start Date End Date Rika Schmidt NP [address] [place] [address] PCP - General Family Medicine 01/15/23 John Solis Breast SurgeonSchedule Analyst 04/27/24 documented as of this encounter
--- OUTSIDE RECORDS SUMMARY | 2024-05-16 11:37 | XMS_ITS | Encounter Summary ---
Author Organization [employer] Address [address] [facility] [address] [place] [address] Care Team Providers Care Cover Marker Name Role Phone Rika Schmidt IGNACIA Primary Care Provider [phone] Reason for Visit * Reason Onset Date Comments Med Refill 04/29/2024 Encounter Details Date Type Department Care Team ([facility] st Contact Info) Description 04/29/2024 Refill [facility] MEDICINE [address] [place] [address] Kary Earl RN Social History Tobacco Use Types Packs/Day Years [...] with others, in a hotel, in a chcf, living outside on the street, on a [...] enough money to get more: Never True 10/ Transportation Answer Date Recorded In the past [...] Description 05/20/2024 10:00 AM EST Clinical Support [facility] MEDICINE [address] [place] [address] Kary Earl, RN documented as of this encounter Visit Diagnoses Not on filedocumented in this encounter Additional Health Concerns Assessment Noted Time PHQ-9 Depression Total Score: 0 01/29/20 24 10:30 AM EDT documented as of this encounter Care Teams Cover Marker Relationship Specialty Start Date End Date Rika Schmidt NP [address] [place] [address] PCP - General Family Medicine 01/15/23 John Solis Fire OfficerButton Sewing Machine Operator 04/27/24 documented as of this encounter
--- OUTSIDE RECORDS SUMMARY | 2024-05-16 11:37 | XMS_ITS | Encounter Summary ---
Author Organization [employer] Address [address] [place] [address] Care Team Providers Care Safety Coordinator Name Role Phone Rika Schmidt IGNACIA Primary Care Provider [phone] Reason for Visit * Reason Onset Date Comments Med Refill 05/06/2024 Encounter Details Date Type Department Care Team ([facility] st Contact Info) Description 05/06/2024 Refill [facility] MEDICINE [address] [place] [address] Kary Earl RN Uncomplicated opioid use Social History Tobacco Use Types Packs/Day Years [...] with others, in a hotel, in a skilled nursing, living outside on the street, on a [...] Description 05/20/2024 10:00 AM EST Clinical Support [facility] MEDICINE [address] [place] [address] Kary Earl, RN documented as of this encounter Visit Diagnoses Diagnosis Uncomplicated opioid use documented in this encounter Additional Health Concerns Assessment Noted Time PHQ-9 Depression Total Score: 0 01/29/20 24 10:30 AM EDT documented as of this encounter Care Teams Safety Coordinator Relationship Specialty Start Date End Date Rika Schmidt NP [address] [place] [address] PCP - General Family Medicine 01/15/23 John Solis Manager Front OfficePumper Gauger Apprentice 04/27/24 documented as of this encounter
--- OUTSIDE RECORDS SUMMARY | 2024-05-16 11:37 | XMS_ITS | Encounter Summary ---
Author Organization [employer] Address [address] [place] [address] Care Team Providers Care Medical Insurance Coding Specialist Name Role Phone Rika Schmidt IGNACIA Primary Care Provider [phone] Reason for Visit * Reason Onset Date Comments Med Refill 04/29/2024 Encounter Details Date Type Department Care Team ([facility] st Contact Info) Description 04/29/2024 Refill [facility] MEDICINE [address] [place] [address] Kary Earl RN Uncomplicated opioid use Social [...] with others, in a hotel, in a nursing home, living outside on the street, on a [...] Description 05/20/2024 10:00 AM EST Clinical Support [facility] MEDICINE [address] [place] [address] Kary Earl, RN documented as of this encounter Visit Diagnoses Diagnosis Uncomplicated opioid use documented in this encounter Additional Health Concerns Assessment Noted Time PHQ-9 Depression Total Score: 0 01/29/20 24 10:30 AM EDT documented as of this encounter Care Teams Medical Insurance Coding Specialist Relationship Specialty Start Date End Date Rika Schmidt NP [address] [place] [address] PCP - General Family Medicine 01/15/23 John Solis Surgeon/PresidentWeaver Hand 04/27/24 documented as of this encounter
--- OUTSIDE RECORDS SUMMARY | 2024-05-16 11:37 | XMS_ITS | Encounter Summary ---
Author Organization [employer] Address [address] [facility] [address] [place] [address] Care Team Providers Care Helicopter Mechanic Name Role Phone Rika Schmidt RELOCATION MANAGER Primary Care Provider [phone] Encounter Details Date Type Department Care Team (Latest Contact Info) Description 05/06/2024 Travel Social History Tobacco Use Types Packs/Day Years [...] with others, in a hotel, in a m[facility], living outside on the street, on a [...] Description 05/20/2024 10:00 AM EST Clinical Support [facility] MEDICINE [address] [place] [address] Kary Earl, RN documented as of this encounter Visit Diagnoses Not on filedocumented in this encounter Additional Health Concerns Assessment Noted Time PHQ-9 Depression Total Score: 0 01/29/20 24 10:30 AM EDT documented as of this encounter Care Teams Helicopter Mechanic Relationship Specialty Start Date End Date Rika Schmidt NP [address] [place] [address] PCP - General Family Medicine 01/15/23 John Solis Supervisor Public Health NursingCard Game Operator 04/27/24 documented as of this encounter
--- OUTSIDE RECORDS SUMMARY | 2024-05-16 11:37 | XMS_ITS | Encounter Summary ---
Author Organization [employer] Address [address] [facility] [address] [place] [address] Care Team Providers Care Obstetrics Specialist Name Role Phone Rika Schmidt IGNACIA Primary Care Provider [phone] Reason for Visit * Reason Comments OBAT F/U Encounter Details Date Type Department Care Team (Latest Contact Info) Description 05/13/2024 10:00 AM EST Clinical Support [facility] [address] [place] [address] Kary Earl RN Uncomplicated opioid use (Primary Dx); Tobacco use disorder Social History Tobacco Use [...] with others, in a hotel, in a senior living, living outside on the street, on a [...] AM EDT documented as of this encounter Progress Notes * Deni Mejia MD - 05/13/2024 10:30 AM EST 05/06/24 Uncomplicated opioid use Utox BUP Doing good. Would like to transfer from [facility] to another program. Decreasing smoking little by little. Now ~ cigarettes a day. Not using NRT. No ADRs. 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 As above. By hx, doing well. Hoping to find another program so he could leave [facility]. To [place] [facility] vis[facility] meet with a dramatic coach. Change to q 2 week visits next visit. Tobacco use disorder As above. Continue to review. Today 05/13/24 Change to 2 weeks Objective Physical Exam Assessment/Plan Uncomplicated opioid use Tobacco use disorder Diagnoses and all orders for this visit: Uncomplicated opioid use Tobacco use disorder This information has been disclosed to you from records protected by federal confidentiality rules(42 CFR Part 2). The federal rules prohibit you from making any further disclosure of information in this record that identifies a patient as having or having had a substance use disorder either directly, by reference to publicly available information, or through verification of such identificationby another person unless further disclosure is expressly permitted by the written consent of the individual whose information is being disclosed or as otherwise permitted by (see 2.3.1). The federal rules restrict any use of the information to investigate or prosecute with regard to a crime any patient with a substance use disorder, except as provided at 2.12??(5) and 2.65. * Kary Earl RN - 05/13/2024 10:00 AM EST Patient ID: Patient here today for Opioid Dependence RV. Patient on Sublocade dose of 100 mg monthly - last received 03/04/24. Suboxone 8/2 mg Rx 04/08/24. Weekly appointments. MD intake 02/02/24. LFTs: ordered, pt advised to go to lab 02/12/24. Patient actively enrolled in behavioral health services, at [facility]. BUSHRA ARMENDARIZ reviewed by provider. Last PCP appt: scheduled with Andreina Schmidt NP 03/25/24 Smoking status: 5 cigs/day 02/02/24 pre-contemplation. PrEP: declined 02/02/24 Last visit: 05/06/24 F/U for opioid use disorder Utox BUP Doing good. Would like to transfer from [facility] to another program. Decreasing smoking little by little. Now ~ cigarettes a day. Not using NRT. No ADRs. 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 By hx, doing well. Hoping to find another program so he could leave [facility]. To [employer] [facility] post vis[place] meet with a dramatic coach. Change to q 2 week visits next visit. THIS VISIT: 05/13/2024 UTOX: bup Jaison said that it is easier now for him to be in recovery because it is something he really wants. He said he reta during the day by listening to music and going on walks. He said his tobacco use is around 5 cigarettes daily, and may quit in the future. His dose is working well now and he has been using the services of a therapist. He was offered a two-week schedule, but he said he wants to come to us weekly. This information has been disclosed to you from records protected by federal confidentiality rules(42 CFR Part 2). The federal rules prohibit you from making any further disclosure of information in this record that identifies a patient as having or having had a substance use disorder either directly, by reference to publicly available information, or through verification of such identificationby another person unless further disclosure is expressly permitted by the written consent of the individual whose information is being disclosed or as otherwise permitted by (see 2.3.1). The federal rules restrict any use of the information to investigate or prosecute with regard to a crime any patient with a substance use disorder, except as provided at 2.12??(5) and 2.65. documented in this encounter Plan of Treatment Upcoming Encounters Date Type Department Care Team (Late st Contact Info) Description 05/20/2024 10:00 AM EST Clinical Support [address] [address] Kary Earl, RN documented as of this encounter Procedures Procedure Name Priority Date/Time Associated Diagnosis Comments POCT YAHIR-14 URINE DRUG SCREEN Routine 05/13/2024 10:11 AM EST Uncomplicated opioid use documented in this encounter Results * POCT YAHIR-14 Urine Drug Screen (05/13/2024 10:11 AM EST) THC Negative Cocaine Screen, Urine Negative Opiate Screen, Urine Negative Methamphetamine Screen Urine Negative Amphetamine Screen, Urine Negative Benzodiazepines Screen, Urine Negative Barbiturate Screen, Urine Negative Methadone Screen, Urine Negative Buprenophine Screen, Urine Positive TCA, Urine Negative MDMA Urine Negative ng/mL Oxycodone Screen, Urine Negative Phencyclidine (PCP), Urine Negative Propoxyphene, Urine Negative Fentanyl, Urine Negative Urine Urine specimen obtained by clean catch procedure / Unknown 05/13/2024 10:11 AM EST us Deni Mejia MD POINT OF CARE TEST ENTER/EDIT ORDERABLES Final Result documented in this encounter Visit Diagnoses Diagnosis Uncomplicated opioid use- Primary Tobacco use disorder documented in this encounter Additional Health Concerns Assessment Noted Time PHQ-9 Depression Total Score: 0 01/29/20 24 10:30 AM EDT documented as of this encounter Care Teams Obstetrics Specialist Relationship Specialty Start Date End Date Rika Schmidt NP [address] [place] [address] PCP - General Family Medicine 01/15/23 John Solis Windows Server SpecialistShoe Repair Supervisor 04/27/24 documented as of this encounter
--- OUTSIDE RECORDS SUMMARY | 2024-05-16 11:37 | XMS_ITS | Clinical Summary ---
Author Organization [employer] Address [address] [place] [address] Care Team Providers Care Lead Python Developer Name Role Phone Rika Schmidt IGNACIA Primary Care Provider [phone] Allergies No known active allergies Medications * This document contains information received from the source organization and may not represent a complete record from that organization. prazosin (Minipress) 1 MG capsuleIndication s:Nightmares Take 1 capsule (1 mg) by mouth at bedtime. 30 capsule 11 023 Active docusate sodium (Colace) 100 MG capsuleIndication s:Uncomplicated opioid use 1 or 2 capsules PO q HS prn constipation. 60 capsule 5 024 Active buprenorphine ER (Sublocade) 100 mg/0.5mL injectionIndicati ons:Uncomplicated opioid use Inject 0.5 mL (1 each) under the skin every month to absorb continually. 0.5 mL 5 024 2024 Active sennosides (Senokot) 8.6 MG tabletIndications :Uncomplicated opioid use 1 or 2 tablets PO q HS prn constipation (natural intestinal stimulant). Start if no relief from colace after 3-4 days. 60 tablet 2 024 Active Ketotifen Fumarate (Alaway) 0.035 % solutionIndicatio ns:Allergic conjunctivitis of both eyes Administer 0.035 drops into affected eye(s) if needed in the morning and at bedtime (itching). 10 mL 1 024 Active nicotine (Nicoderm CQ) 14 MG/24HR patchIndications: Tobacco use disorder Place 1 patch on the skin 1 (one) time each day at the same time. 42 patch 025 2024 Active nicotine polacrilex (Nicorette) 2 MG lozengeIndication s:Tobacco use disorder 1 or 2 lozenges q 1-2 hours instead of a cigarette. 72 lozenge 1 025 Active cloNIDine (Catapres) 0.1 MG tabletIndications :Uncomplicated opioid use 1 tablet PO qAM 30 tablet 1 025 Active hydrOXYzine pamoate (Vistaril) 25 MG capsuleIndication s:Uncomplicated opioid use 2 caps PO at bedtime. May cause drowsiness. 60 capsule 1 025 Active traZODone (Desyrel) 100 MG tabletIndications :Uncomplicated opioid use Take 1 tablet (100 mg) by mouth at bedtime. 30 tablet 1 025 2024 Active Buprenorphine HCl-Naloxone HCl (Suboxone) 8-2 MG SL filmIndications:U ncomplicated opioid use Place 1 Film under the tongue Once per day for 14 days. Do not start before May 13, 2024. 14 Film 025 2024 Active traZODone (Desyrel) 100 MG tablet Take 1 tablet (100 mg) by mouth at bedtime. 30 tablet 1 024 2024 Discontinued(R eorder (will not trigger notification to Pharmacy)) cloNIDine (Catapres) 0.1 MG tabletIndications :Uncomplicated opioid use 1 tablet PO qAM 30 tablet 1 024 2024 Discontinued(R eorder (will not trigger notification to Pharmacy)) hydrOXYzine pamoate (Vistaril) 25 MG capsuleIndication s:Uncomplicated opioid use 2 caps PO at bedtime. May cause drowsiness. 60 capsule 1 024 2024 Discontinued(R eorder (will not trigger notification to Pharmacy)) Buprenorphine HCl-Naloxone HCl (Suboxone) 8-2 MG SL filmIndications:O pioid use disorder Place 1 Film under the tongue Once per day for 7 days. 7 Film 025 2024 Discontinued(D uplicate order (will not trigger notification to Pharmacy)) Buprenorphine HCl-Naloxone HCl (Suboxone) 8-2 MG SL filmIndications:U ncomplicated opioid use Place 1 Film under the tongue Once per day for 7 days. 7 Film 025 2024 Discontinued(R eorder (will not trigger notification to Pharmacy)) Buprenorphine HCl-Naloxone HCl (Suboxone) 8-2 MG SL filmIndications:U ncomplicated opioid use Place 1 Film under the tongue Once per day for 7 days. Do not start before April 29, 2024. 7 Film 025 2024 Discontinued(R eorder (will not trigger notification to Pharmacy)) Buprenorphine HCl-Naloxone HCl (Suboxone) 8-2 MG SL filmIndications:U ncomplicated opioid use Place 1 Film under the tongue Once per day for 7 days. Do not start before May 06, 2024. 7 Film 025 2024 Discontinued(R eorder (will not trigger notification to Pharmacy)) Active Problems Problem Noted Date Diagnosed Date Opioid use disorder 12/16/2022 Assessment & Plan (12/16/2022 9:54 AM EDT): Assessment: Patient with insomnia, sadness, chest tight, crying spells, anger, anhedonia, poor appetite, low self-esteem, restlessness, passive SI w/o plan or intention, anxiousness, persistent worry, trouble relaxing, fidgety, hypervigilant and fearfulness of something bad happening. Factors contributing to his symptoms are that he still adjusting to been released to the community, he is hmeless, staying at the basement, unstable at jobs and Hx of trauma. Patient will benefit from keeping MH services at [facility]. At this time Jaison Oliver meets criteria for Visit Diagnoses: Problem List Items Addressed This Visit Other Opioid use disorder Persistent depressive disorder with anxious distress, currently moderate Patient ready to address current needs already engaged in services Strengths include willing to seek help PLAN: 1. Follow up with [facility]: Not recommended for follow-up 2. Patient goal is to improve mental health and become sober 3. Behavioral Recommendations a. Re connect with [facility] b. Keeping MH services c. Participate in support group Persistent depressive disord er with anxious distress, currently moderate 12/16/2022 Assessment & Plan (12/16/2022 9:54 AM EDT): Assessment: Patient with insomnia, sadness, chest tight, crying spells, anger, anhedonia, poor appetite, low self-esteem, restlessness, passive SI w/o plan or intention, anxiousness, persistent worry, trouble relaxing, fidgety, hypervigilant and fearfulness of something bad happening. Factors contributing to his symptoms are that he still adjusting to been released to the community, he is hmeless, staying at the basement, unstable at jobs and Hx of trauma. Patient will benefit from keeping MH services at [facility]. At this time Jaison Oliver meets criteria for Visit Diagnoses: Problem List Items Addressed This Visit Other Opioid use disorder Persistent depressive disorder with anxious distress, currently moderate Patient ready to address current needs already engaged in services Strengths include willing to seek help PLAN: 1. Follow up with [facility]: Not recommended for follow-up 2. Patient goal is to improve mental health and become sober 3. Behavioral Recommendations a. Re connect with [facility] b. Keeping MH services c. Participate in support group Dental calculus 07/21/2022 Heroin use disorder, severe, in sustained remission, dependence 05/23/2022 Cigarette nicotine dependence without complicati on 05/23/2022 Methadone maintenance therapy patient 05/23/2022 Health care maintenance 05/23/2022 Overview (07/25/2022): Last dental appt: 07/21/22 Eye care: Pending. referred Adjustment insomnia 08/06/2018 Allergic conjunctivitis 08/06/2018 Encounters * This document contains information received from the source organization and may not represent a complete record from that organization. Date Type Department Care Team Description 05/13/2024 10:00 AM EST Clinical Support [facility] [address] [place] [address] Kary Earl RN Uncomplicated opioid use (Primary Dx); Tobacco use disorder 05/13/2024 Travel 05/13/2024 Telephone [facility] [address] [place] [phone] Rika Schmidt NP Surgery Clearance 05/12/2024 Telephone [facility] [address] [place] [address] Kirsten Bee MA 05/10/2024 Telephone [facility] [address] [place] [phone] Robert Jackson MA chartprep 05/06/2024 9:45 AM EST Office Visit [facility] [address] [place] [phone] Deni Mejia MD Uncomplicated opioid use (Primary Dx); Tobacco use disorder 05/06/2024 Refill [facility] [address] [place] [address] Kary Earl RN Uncomplicated opioid use 05/06/2024 Refill [facility] [address] [place] [address] Kary Earl RN Uncomplicated opioid use 05/06/2024 Patient Outreach [facility] [address] [place] [phone] LoraJorge Alberto Recovery Supports 05/06/2024 Refill [facility] [address] [place] [phone] Deni Mejia MD Tobacco use disorder 05/06/2024 Travel 05/06/2024 Telephone [facility] [address] [place] [phone] Rika Schmidt NP Med Refill 04/29/2024 9:30 AM EST Clinical Support [facility] [address] [place] [phone] Kary Earl RN Uncomplicated opioid use (Primary Dx) 04/29/2024 Refill [facility] [address] [place] [address] Kary Earl RN Uncomplicated opioid use 04/29/2024 Refill [facility] [address] [place] [address] Kary Earl RN 04/29/2024 Travel 04/27/2024 Telephone [facility] [address] [place] [phone] Rika Schmidt NP Care Coordination (CP Care Plan) 04/26/2024 Telephone [facility] [address] [place] [phone] Kenna Lemus KATIANA Error (VOID this visit) 04/22/2024 10:15 AM EST Office Visit [address] [address] Deni Mejia MD Uncomplicated opioid use (Primary Dx); Tobacco use disorder; Opioid use disorder 04/22/[address] [address] Kary Earl RN Uncomplicated opioid use 04/22/2024 Travel 04/15/2024 9:30 AM EST Office Visit [address] [address] Deni Mejia MD Uncomplicated opioid use (Primary Dx); Tobacco use disorder; Opioid use disorder; Encounter for immunization 04/15/2024 Patient Outreach [address] [address] Yogesh Olson Recovery Supports 04/15/[address] [address] Deni Mejia MD Opioid use disorder 04/15/[address] [address] Irma Hoffman RN Opioid use disorder 04/15/2024 Travel 04/08/2024 11:00 AM EST Clinical Support [address] [address] Annamaria Martel, KATIANA Opioid type dependence, continuous (CMS/HCC) (Primary Dx) 04/08/[address] [address] Annamaria Martel, KATIANA Opioid use disorder 04/08/2024 Patient Outreach [address] [address] Jorge Alberto Lora Recovery Supports 04/08/2024 Travel 04/07/[address] [address] Rika Schmidt NP Med Refill 04/01/2024 11:00 AM EST Office Visit [address] [address] Deni Mejia MD Uncomplicated opioid use (Primary Dx); Tobacco use disorder 04/01/2024 Travel 03/25/2024 1:00 PM EST Office Visit [address] [address] Rika Schmidt NP Encounter to establish care (Primary Dx); Mixed hyperlipidemia; Allergic conjunctivitis of both eyes; Unilateral inguinal hernia without obstruction or gangrene, recurrence not specified 03/25/2024 10:45 AM EST Office Visit [address] [address] Deni Mejia MD Opioid type dependence, continuous (CMS/HCC) (Primary Dx); Uncomplicated opioid use; Tobacco use disorder 03/25/2024 Patient Outreach [address] [address] Jorge Alberto Lora Recovery Supports 03/25/2024 Travel 03/21/[address] [address] Robert Jackson MA chartprep 03/18/2024 11:00 AM EST Clinical Support [address] [address] Annamaria Martel RN Opioid type dependence, continuous (CMS/HCC) (Primary Dx) 03/18/2024 Travel 03/16/2024 Patient Outreach [address] [address] Rika Schmidt NP Pre-visit Planning (Pre-visit planning - mom was unable to complete PVP screening. ) 03/15/[address] [address] Leandra Harding RN 03/07/[address] [address] Rika Schmidt NP c/b requested 03/04/2024 10:00 AM EST Clinical Support [address] [address] Annamaria Martel RN Opioid type dependence, continuous (CMS/HCC) (Primary Dx); Uncomplicated opioid use 03/04/2024 Patient Outreach [address] [place] [address] Yogesh Olson 03/04/[address] [address] Deni Mejia MD 03/04/2024 Travel 02/26/2024 10:00 AM EST Office Visit [address] [address] Deni Mejia MD Uncomplicated opioid use (Primary Dx); Tobacco use disorder; Unilateral recurrent inguinal hernia without obstruction or gangrene 02/26/2024 Travel 02/19/2024 9:30 AM EST Clinical Support [address] [address] Annamaria Martel RN Opioid type dependence, continuous (CMS/HCC) (Primary Dx) 02/19/2024 Patient Outreach [address] [address] Yuri Oliver 02/19/[address] [address] Annamaria Martel RN Uncomplicated opioid use 02/19/2024 Travel from Last 3 Months Immunizations Name Administration Dates Next Due Hep A, Adult 04/15/2024 Hep B, adult 02/11/2019,12/29/2018 Influenza injectable quadriv alent IIV4 with preservative 12/29/2018 Moderna Covid-19 Vaccine 12+ 09/22/2022,08/09/19 21,07/11/2020 Moderna Covid-19 Vaccine 6+ Bivalent 06/04/2022 Tdap 09/10/2019 Family History Medical History Relation Name Comments Diabetes Maternal Grandmother Pancreatic cancer Paternal Grandmother Relation Name Status Comments Maternal Grandmother Paternal Grandmother Social History Tobacco Use Types Packs/Day Years Used Date Smoking Tobacco: Every Day Cigarettes 1 25 Smokeless Tobacco: Current Tobacco Cessation:Ready to Q uit: No; Counseling Given: Yes Comments:Tried quitting in the past. Interested Alcohol Use Standard Drinks/Week Comments [...] Orientation Straight 02/10/2022 10 :35 AM EDT Last Filed Vital Signs Vital Sign Reading Time Taken Comments Blood Pressure 109/77 03/25/2024 1:08 PM EST Pulse 72 03/25/2024 1:08 PM EST Temperature 36 ??C (96.8 ??F) 03/25/2024 1:08 PM EST Respiratory Rate 20 03/25/2024 1:08 PM EST Oxygen Saturation 97% 03/25/2024 1:08 PM EST Inhaled Oxygen Concentration - - Weight 77.7 kg (171 lb 6.4 oz) 03/25/2024 1:08 P M EST Height 167.6 cm (5' 6 ) 03/25/2024 1:08 PM EST Body Mass Index 27.66 03/25/2024 1:08 PM EST Plan of Treatment Upcoming Encounters Date Type Department Care Team (Late st Contact Info) Description 05/20/2024 10:00 AM EST Clinical Support [address] [address] Kary Earl, KATIANA Health Maintenance Due Date Last Done Comments Family Planning (PISQ) 1996 Pneumococcal Vaccine: Pediatrics (0 to 5 Years) and At-Risk Patients (6 to 49) Years) (1 of 2 - PCV) 2000 Hepatitis B Vaccines (3 of 3 - 19+ 3-dose series) 06/29/2019 02/11/2019, 12/29/2018 Dental Oral Exam 11/14/2022 05/16/2022 Dental Prophylaxis 01/21/2023 07/21/2022 Dental X-Ray: Bitewings 05/17/2023 05/16/2022 COVID-19 Vaccine ( season) 2023 09/22/2022, 06/04/2022, 08/08/2020, Additional history exists Influenza Vaccine (#1) 2023 12/29/2018 Hepatitis A Vaccines (2 of 2 - Risk 2-dose series) 10/13/2024 04/15/2024 Alcohol/Substance Use Screening 01/28/2025 01/29/2024 Depression Screening 03/25/2025 03/25/2024, 01/29/20 24 SDOH Screening 03/25/2025 03/25/2024 Tobacco Screening 03/25/2025 03/25/2024 Dental X-Ray: Full Mouth 05/17/2025 05/16/2022 Lipid Panel 04/01/2029 04/01/2024, 05/23/2022 DTaP/Tdap/Td Vaccines (2 - Td or Tdap) 09/09/2029 09/10/2019 Zoster Vaccines (1 of 2) 2031 RSV Patients and Patients Aged 60 years or older (1 - 1-dose 75+ series) 2056 HIV Screening Completed 03/18/2024, 05/23/2022 Hepatitis C Screening Completed 03/18/2024, 023 HIB Vaccines Aged Out No longer eligi ble based on patient's age to complete this topic HPV Vaccines Aged Out No longer eligi ble based on patient's age to complete this topic IPV Vaccines Aged Out No longer eligi ble based on patient's age to complete this topic Meningococcal Vaccine Aged Out No brett unruly eligible based on patient's age to complete this topic RSV under 20 months Aged Out No longe r eligible based on patient's age to complete this topic Rotavirus Vaccines Aged Out No longer eligible based on patient's age to complete this topic Procedures Procedure Name Priority Date/Time Associated Diagnosis Comments POCT YAHIR-14 URINE DRUG SCREEN Routine 05/13/2024 10:11 AM EST Uncomplicated opioid use POCT YAHIR-14 URINE DRUG SCREEN Routine 05/06/2024 11:47 AM EST Uncomplicated opioid use POCT YAHIR-14 URINE DRUG SCREEN Routine 04/29/2024 9:55 AM EST Uncomplicated opioid use POCT YAHIR-14 URINE DRUG SCREEN Routine 04/22/2024 10:19 AM EST Uncomplicated opioid use POCT YAHIR-14 URINE DRUG SCREEN Routine 04/15/2024 9:54 AM EST Uncomplicated opioid use POCT YAIHR-14 URINE DRUG SCREEN Routine 04/08/2024 11:00 AM EST Opioid type dependence, continuous (CMS/HCC) POCT YAHIR-14 URINE DRUG SCREEN Routine 04/01/2024 11:02 AM EST Uncomplicated opioid use LIPID PANEL, STANDARD Routine 04/01/2024 10:50 AM EST Mixed hyperlipidemia CHLAMYDIA/N. GONORRHOEAE RNA, TMA, UROGENITAL Routine 04/01/2024 10:50 AM EST Uncomplicated opioid use POCT YAHIR-14 URINE DRUG SCREEN Routine 03/25/2024 10:04 AM EST Opioid type dependence, continuous (CMS/HCC) RPR (MONITOR) W/REFL TITER Routine 03/18/2024 11:18 AM EST Uncomplicated opioid use HIV 1/2 ANTIGEN/ANTIBODY, FOURTH GENERATION W/RFL Routine 03/18/2024 11:18 AM EST Uncomplicated opioid use HEPATITIS B SURFACE ANTIGEN, EIA Routine 03/18/2024 11:18 AM EST Uncomplicated opioid use HEPATITIS B SURFACE ANTIBODY, QUALITATIVE Routine 03/18/2024 11:18 AM EST Uncomplicated opioid use T-SPOT(R).TB Routine 03/18/2024 11:18 AM EST Uncomplicated opioid use CBC WITH AUTO DIFFERENTIAL Routine 03/18/2024 11:18 AM EST Uncomplicated opioid use UREA NITROGEN (BUN) Routine 03/18/2024 1 1:18 AM EST Uncomplicated opioid use CREATININE, SERUM Routine 03/18/2024 11: 18 AM EST Uncomplicated opioid use HEPATITIS A ANTIBODY, TOTAL Routine 03/18/2024 11:18 AM EST Uncomplicated opioid use HEPATITIS B CORE AB TOTAL Routine 03/18/2024 11:18 AM EST Uncomplicated opioid use HEPATITIS C AB W/REFL TO HCV RNA, QN, PCR Routine 03/18/2024 11:18 AM EST Uncomplicated opioid use HEPATIC FUNCTION PANEL Routine 03/18/2024 11:18 AM EST Uncomplicated opioid use POCT YAHIR-14 URINE DRUG SCREEN Routine 03/18/2024 11:06 AM EST Opioid type dependence, continuous (CMS/HCC) POCT YAHIR-14 URINE DRUG SCREEN Routine 03/04/2024 11:44 AM EST Opioid type dependence, continuous (CMS/HCC) POCT YAHIR-14 URINE DRUG SCREEN Routine 02/26/2024 1:31 PM EST Uncomplicated opioid use POCT YAHIR-14 URINE DRUG SCREEN Routine 02/19/2024 9:39 AM EST Opioid type dependence, continuous (CMS/HCC) PROPHYLAXIS - ADULT Routine 07/21/2022 1 0:00 AM EDT DIAGNOSTIC - DIAGNOSTIC IMAGING - INTRAORAL - COMPREHENSIVE SERIES OF RADIOGRAPHIC IMAGES Routine 05/16/2022 2:00 PM EST COMPREHENSIVE ORAL EVALUATION - NEW OR ESTABLISHED PATIENT Routine 05/16/2022 2:00 PM EST from Last 3 Months or Most Recently Relevant to Health Maintenance Results * POCT YAHIR-14 Urine Drug Screen (05/13/2024 10:11 AM EST) Only the most recent of12 resultswithin the time period is included. THC Negative Cocaine Screen, Urine Negative Opiate [...] procedure / Unknown 05/13/2024 10:11 AM EST Deni Mejia MD POINT OF CARE TEST ENTER/EDIT ORDERABLES Final Result * Chlamydia/N. Gonorrhoeae RNA, TMA, Urogenitial (04/01/2024 10:50 AM EST) CT PCR NOT DETECTED Not Detect. [facility] Comment:A not detected test result does not exclude the possibilityof infection because test results can be affected byimproper specimen collection, concurrent antibiotic therapy,or the number of organisms in the specimen which may bebelow the sensitivity of the test. As with many diagnostictests, results from the Xpert CT/NG assay should beinterpreted in conjunction with other laboratory andclinical data available to the clinician.Xpert CT/NG performance has not been evaluated in patientsless than 14 years of age. The assay should not be used forthe evaluationof suspected sexual abuse or for other medico-legalindications. Additional testing is recommended in anycircumstance when false positive or false negative resultscould lead to adverse medical, social or psychologicalconsequences. NG PCR NOT DETECTED Not Detect. [facility] Comment:A not detected test result does not exclude the possibilityof infection because test results can be affected byimproper specimen collection, concurrent antibiotic therapy,or the number of organisms in the specimen which may bebelow the sensitivity of the test. As with many diagnostictests, results from the Xpert CT/NG assay should beinterpreted in conjunction with other laboratory andclinical data available to the clinician.Xpert CT/NG performance has not been evaluated in patientsless than 14 years of age. The assay should not be used forthe evaluationof suspected sexual abuse or for other medico-legalindications. Additional testing is recommended in anycircumstance when false positive or false negative resultscould lead to adverse medical, social or psychologicalconsequences. Urine, Random 04/01/2024 10: 50 AM EST 04/01/2024 11:56 AM EST Narrative [facility] - 04/01/2024 1:52 PM EST Urine us Deni Mejia MD LAB MICROBIOLOGY - GENERAL ORD ERABLES Final Result [facility] [address] [place] [phone] * Lipid Panel, Standard (04/01/2024 10:50 AM EST) Triglycerides 58 <150 mg/dL [facility] Comment:Desirable Triglyceri de: less than 150 mg/dLBorderline High Triglyceride 150-199 mg/dLHigh Triglyceride: 200-499 mg/dLVery High Triglyceride: greater than or equal to 5OO mg/dL Cholesterol 160 <200 mg/dL [facility] Comment:Desirable Cholestero l: less than 200 mg/dLBorderline High Cholesterol: 200-239 mg/dLHigh Cholesterol: greater than 239 mg/dL LDL Cholesterol Calculated 92 <100 mg/dL [facility] Comment:Desirable LDL: less than 100 mg/dLNear Optimal/Above Optimal LDL: 110- 129 mg/dLBorderline High LDL: 130-159 mg/dLHigh LDL: 160-189 mg/dLVery High LDL: greater than or equal to 190 mg/dL HDL Cholesterol 57 >40 mg/dL [facility] Comment:Desirable HDL: great er than 40 mg/dL Note: This HDL assay may give artificially low results in patients with liver disease. Blood Venous blood specimen / Unknown 04/01/2024 10:50 AM EST 04/01/2024 11:32 AM EST Rika Schmidt NP LAB BLOOD ORDERABLES Final Resu lt [facility] [address] [place] [phone] * T-SPOT??.TB (03/18/2024 11:18 AM EST) T Spot TB NEGATIVE [facility] Comment:A negative test resu lt does not exclude the possibilityof exposure to or infection with Mycobacteriumtuberculosis (M. tuberculosis). Patients with recentexposure to TB infected individuals exhibiting anegative T-SPOT.TB result should be considered forretesting within 6 weeks or if other relevant clinicalsymptoms indicate. Results from T-SPOT.TB testing mustbe used in conjunction with each individual'sepidemiological history, current medical status,and results of other diagnostic evaluations.The T-SPOT.TB test is qualitative and results arereported as positive, borderline, or negative, giventhat the test controls perform as expected. In linewith the Centers for Disease Control and Prevention's2010 recommendation to report quantitative measurementsalongside the qualitative result, the laboratoryprovides spot counts for informational purposes only.The T-SPOT.TB test should not be interpreted as aquantitative test. TS PANEL A 1 [facility] TS PANEL B 0 [facility] Negative Control PASSED [facility] Positive Control PASSED [facility] Comment:For additional infor dave, please refer tohttp://education.[employer]/faq/PNF727(This link is being provided for informational/educational purposes only.)Tests performed at: [facility], [address] [address], [place] [address] 03/18/2024 11:1 8 AM EST 03/18/2024 12:55 PM EST Deni Mejia MD LAB BLOOD ORDERABLES Final Res ult Performing Organization Address [facility] Co de Phone Number [facility] [address] [place] [phone] * Creatinine, Serum (03/18/2024 11:18 AM EST) Creatinine, Serum 1.06 0.5 - 1.4 mg/dL [facility] Estimated Glomerular Filt Rate >60 [facility] Comment:Chronic Kidney Disea se: Estimated GFR < 60 mL/min/1.11m2Tcmtsx Kidney Disease: Estimated GFR < 15 mL/min/1.73m2 Blood 03/18/2024 11:1 8 AM EST 03/18/2024 12:55 PM EST Deni Mejia MD LAB BLOOD ORDERABLES Final Res ult Performing Organization Address [facility] [facility] Co de Phone Number [facility] [address] [place] [phone] * (ABNORMAL) CBC auto differential (03/18/2024 11:18 AM EST) White Blood Count 4.8 4.8 - 10.8 X10*3/uL [facility] Red Blood Count 5.17 4.60 - 5.80 X10*6/uL [facility] Hemoglobin 15.7 14.0 - 18.0 g/dl [facility] Hematocrit 45.2 42.0 - 52.0 % [facility] Mean Corpuscular Volume 87.4 80.0 - 98.0 fL [facility] Mean Corpuscular Hemoglobin 30.4 27.0 - 33.0 pg [facility] Mean Corpuscular HGB Conc 34.7 31.0 - 36.0 g/dl [facility] Red Cell Distribution Width 13.3 11.0 - 16.0 % [facility] Platelet Count 178 160 - 400 X10*3/uL [facility] Mean Platelet Volume 11.3 9.4 - 12.4 fL [facility] Neutrophils Percent Auto 47.1 45 - 73 % [facility] Imm Gran Pct Auto 0.4 0.0 - 0.4 % [facility] Lymphocytes Percent Auto 40.6(H) 20 - 40 % [facility] Monocytes Percent Auto 9.4 2 - 11 % [facility] Eosinophils Percent Auto 2.1 0 - 4 % [facility] Basophils Percent Auto 0.4 0 - 2 % [facility] NRBC Pct Auto 0.0 0.0 - 0.2 /100WBC [facility] Neutrophils Absolute Auto 2.3 2.0 - 8.3 x10*3/uL [facility] Imm Gran Abs Auto 0.02 0.00 - 0.03 X10*3/uL [facility] Lymphocytes Absolute Auto 2.0 1.2 - 4.9 X10*3/uL [facility] Monocytes Absolute Auto 0.5 0.1 - 1.2 X10*3/uL [facility] Eosinophils Absolute Auto 0.1 0.0 - 0.4 X10*3/uL [facility] Basophils Absolute Auto 0.0 0.0 - 0.2 X10*3/uL [facility] NRBC Abs Auto 0.000 0.0 - 0.012 X10*3/uL [facility] Blood Venous blood specimen / Unknown 03/18/2024 11:18 AM EST 03/18/2024 12:55 PM EST us Deni Mejia MD LAB BLOOD ORDERABLES Final Res ult Performing Organization Address [facility] Co de Phone Number [facility] [address] [place] [phone] * Hepatitis C Antibody with Reflex to HCV, RNA, Quantitative, Real-Time PCR (03/18/2024 11:18 AM EST) Hepatitis C Antibody Nonreactive Nonreactive [facility] Comment:Antibodies to HCV no t detected; does not exclude early acuteHCV infection. Blood Venous blood specimen / Unknown 03/18/2024 11:18 AM EST 03/18/2024 12:55 PM EST us Deni Mejia MD LAB BLOOD ORDERABLES Final Res ult Performing Organization Address [facility] Co de Phone Number [facility] [address] [place] [phone] * Hepatitis A Antibody, Total (03/18/2024 11:18 AM EST) Hepatitis A Antibody IgG Nonreactive Nonreactive [facility] Blood Venous blood specimen / Unknown 03/18/2024 11:18 AM EST 03/18/2024 12:55 PM EST us Deni Mejia MD LAB BLOOD ORDERABLES Final Res ult Performing Organization Address [facility] Co de Phone Number [facility] [address] [place] [phone] * Hepatitis B surface antigen, EIA (03/18/2024 11:18 AM EST) Hepatitis B Surface Ag Negative Negative [facility] Blood Venous blood specimen / Unknown 03/18/2024 11:18 AM EST 03/18/2024 12:55 PM EST us Deni Mejia MD LAB BLOOD ORDERABLES Final Res ult Performing Organization Address [facility] Co de Phone Number [facility] [address] [place] [phone] * Hepatitis B Core Antibody, Total (03/18/2024 11:18 AM EST) Hepatitis B Core Antibody Nonreactive Nonreactive [facility] Blood Venous blood specimen / Unknown 03/18/2024 11:18 AM EST 03/18/2024 12:55 PM EST Deni Mejia MD LAB BLOOD ORDERABLES Final Res ult Performing Organization Address [facility] de Phone Number [facility] [address] [place] [phone] * RPR (Monitor) with Reflex to??Titer (03/18/2024 11:18 AM EST) RPR (Monitor) w/Refl Titer NON-REACTI VE NON-REACT SARA [facility] Comment:THIS TEST WAS PERFOR MED AT:[facility] [address] [id number] ARAUJO MD Rapid Plasma Reagin Ab Titer TNP [facility] Blood Venous blood specimen / Unknown 03/18/2024 11:18 AM EST 03/18/2024 12:55 PM EST Deni Mejia MD LAB BLOOD ORDERABLES Final Res ult Performing Organization Address [facility] Co de Phone Number [facility] [address] [place] [phone] * HIV-1/2 Antigen and Antibodies, Fourth Generation, with Reflexes (03/18/2024 11:18 AM EST) HIV AB/AG Nonreactive Nonreactive [facility] Comment:HIV-1 p24 Ag and/or HIV-1/HIV-2 Ab not detected.A test result that is nonreactive does not exclude thepossibility of exposure to or infection with HIV-1 and/orHIV-2. Nonreactive results in this assay for individualswith prior exposure to HIV-1 and/or HIV-2 may be due toantigen and antibody levels that are below the limit ofdetection of this assay.The [email or web address] HIV Ag/Ab Combo assay result andsupplemental assay results should be interpreted inconjunction with the patient's clinical presentation,history and other laboratory results. If the results areinconsistent with clinical evidence, additional testing issuggested to confirm the result. Blood Venous blood specimen / Unknown 03/18/2024 11:18 AM EST 03/18/2024 12:55 PM EST us Deni Mejia MD LAB BLOOD ORDERABLES Final Res ult Performing Organization Address [facility] Co de Phone Number [facility] [address] [place] [phone] * Hepatitis B Surface Antibody, Qualitative (03/18/2024 11:18 AM EST) ~Hepatitis B Surface Antibody REACTIVE Nonreactive [facility] Comment:REACTIVE: > 11.99 mI U/mL Blood Venous blood specimen / Unknown 03/18/2024 11:18 AM EST 03/18/2024 12:55 PM EST us Deni Mejia MD LAB BLOOD ORDERABLES Final Res ult Performing Organization Address City/[facility]/ZIP Co de Phone Number [facility] [address] [place] [phone] * BUN (Blood Urea Nitrogen) (03/18/2024 11:18 AM EST) Urea Nitrogen (BUN) 12 9 - 16 mg/dL [facility] Blood Venous blood specimen / Unknown 03/18/2024 11:18 AM EST 03/18/2024 12:55 PM EST us Deni Mejia MD LAB BLOOD ORDERABLES Final Res ult Performing Organization Address [facility] Co de Phone Number [facility] [address] [place] [phone] * Hepatic Function Panel (03/18/2024 11:18 AM EST) Bilirubin, Total 0.5 0.0 - 1.0 mg/dL [facility] Bilirubin, Direct 0.2 0.0 - 0.5 mg/dL [facility] Aspartate Amino Transferase 28 5 - 37 U/L [facility] Alanine Aminotransferase 25 0 - 40 U/L [facility] Total Protein 7.3 6.5 - 8.0 g/dL [facility] Albumin Level 4.4 3.5 - 5.0 g/dL [facility] Alkaline Phosphatase 69 39 - 117 U/L [facility] Blood Venous blood specimen / Unknown 03/18/2024 11:18 AM EST 03/18/2024 12:55 PM EST Deni Mejia MD LAB BLOOD ORDERABLES Final Res ult Performing Organization Address [facility] Co de Phone Number [facility] [address] [place] [phone] from Last [address] [place] [address] C3 [employer] STAND ADULT Care Teams Lead Python Developer Relationship Specialty Start Date End Date Rika Schmidt NP [address] [place] [address] PCP - General Family Medicine 01/15/23 John Solis Ingot Car OperatorProfessional Benefits Sales Consultant 04/27/24
--- OUTSIDE RECORDS SUMMARY | 2024-05-16 11:37 | XMS_ITS | Encounter Summary ---
Author Organization [employer] Address [address] [place] [address] [address] [place] [address] Care Team Providers Care Granulator Name Role Phone Bessie Norris Primary Care Provider [phone] Rika Schmidt NP Primary Care Provider [phone] Encounter Details Date Type Department Care Team (Latest Contact Info) Description 09/27/2018 Abstract [facility] CONVERSIONS Dental, Provider, DDS Social History Tobacco Use Types Packs/Day Years Used Date Smoking Tobacco: Never Assessed Sex and Gender Information Value Date Recorded Sex Assigned at Male 02/10/2022 10:35 AM EDT Legal Sex Male 10:35 AM EDT Gender Identity Male 02/10/2022 10:35 AM EDT Sexual Orientation Straight 02/10/2022 10 :35 AM EDT documented as of this encounter Plan of Treatment Upcoming Encounters Date Type Department Care Team ( st Contact Info) Description 05/20/2024 10:00 AM EST Clinical Support [facility] MEDICINE [address] [place] [address] Kary Earl, KATIANA documented as of this encounter Visit Diagnoses Not on filedocumented in this encounter Care Teams Granulator Relationship Specialty Start Date End Date Bessie Norris FNP PCP - General Family Medicine 08/12/22 01/14/23 Rika Schmidt NP [address] [place] [address] PCP - General Family Medicine 01/15/23 John Solis Talent Acquisition ManagerMachine Clerical Verifier 04/27/24 documented as of this encounter
--- OUTSIDE RECORDS SUMMARY | 2024-05-16 11:37 | XMS_ITS | Encounter Summary ---
Author Organization [employer] Address [address] [place] [address] Care Team Providers Care Technology Resource Teacher Name Role Phone Rika Schmidt IGNACIA Primary Care Provider [phone] Reason for Visit * Reason Comments RC Recovery Supports Encounter Details Date Type Department Care Team ([facility] st Contact Info) Description 05/06/2024 Patient Outreach [facility] MEDICINE [address] [place] [address] Jorge Alberto Lora [address] [place] [address] Recovery Supports Social History Tobacco Use Types Packs/Day Years [...] as of this encounter Progress Notes * Jorge Alberto Lora - 05/06/2024 1:24 PM EST I met with Jaison today. Setting: in person at [facility] Recovery Wellness Goals worked on: Social Stability Action taken/next steps: Offered person centered recovery support Additional comments: Today, Jaison attended his appointment. I briefly spoke with him as he is looking for an inpatient program. I told him about the [facility] program and ROSE Zuñiga informed me that the patient needs to go through the program change procedure, as the staff at [facility] are in charge of the [facility] program. I also mentioned [employer], which is offering housing resources. Jorge Alberto Lora documented in this encounter Plan of Treatment Upcoming Encounters Date Type Department Care Team (Late st Contact Info) Description 05/20/2024 10:00 AM EST Clinical Support [facility] MEDICINE [address] [place] [address] Kary Earl, RN documented as of this encounter Visit Diagnoses Not on filedocumented in this encounter Additional Health Concerns Assessment Noted Time PHQ-9 Depression Total Score: 0 01/29/20 10:30 AM EDT documented as of this encounter Care Teams Technology Resource Teacher Relationship Specialty Start Date End Date Rika Schmidt NP [address] [place] [address] PCP - General Family Medicine 01/15/23 John Solis Beach Patrol LieutenantChief Inspector 04/27/24 documented as of this encounter
--- OUTSIDE RECORDS SUMMARY | 2024-05-16 11:37 | XMS_ITS | Encounter Summary ---
Author Organization [employer] Address [address] [facility] 7t [place] [address] Care Team Providers Care Nut Culler Name Role Phone Rika Schmidt NP Primary Care Provider [phone] Reason for Visit * Reason Onset Date Comments Med Refill 05/06/2024 Encounter Details Date Type Department Care Team ([facility] Contact Info) Description 05/06/2024 Telephone [facility] MEDICINE [address] [place] [address] Rika Schmidt NP [address] [place] [address] Med Refill Social History Tobacco Use Types Packs/Day Years [...] with others, in a hotel, in a care home, living outside on the street, on [...] AM EDT documented as of this encounter Miscellaneous Notes * Telephone Encounter - Maira Keating - 05/06/2024 10:22 AM EST Patient walked in requesting medication refill on : cloNIDine (Catapres) 0.1 MG tablet hydrOXYzine pamoate (Vistaril) 25 MG capsule traZODone (Desyrel) 100 MG tablet however this medication is on chart. Please contact patient to number on chart in any questions or concerns. documented in this encounter Plan of Treatment Upcoming Encounters Date Type Department Care Team ([facility] st Contact Info) Description 05/20/2024 10:00 AM EST Clinical Support [facility] MEDICINE [address] [place] [address] Kary Earl RN documented as of this encounter Visit Diagnoses Not on filedocumented in this encounter Additional Health Concerns Assessment Noted Time PHQ-9 Depression Total Score: 0 01/29/20 10:30 AM EDT documented as of this encounter Care Teams Nut Culler Relationship Specialty Start Date End Date Rika Schmidt NP [address] [place] [phone] PCP - General Family Medicine 01/15/23 John Solis Weed SprayerMedical Scheduler 04/27/24 documented as of this encounter
--- OUTSIDE RECORDS SUMMARY | 2024-05-16 11:37 | XMS_ITS | Encounter Summary ---
Author Organization [employer] Address [address] [facility] 7t [place] [address] Care Team Providers Care Screw Driver Operator Name Role Phone Rika Schmidt DIPLOMA DENTAL ASSISTANT Primary Care Provider [phone] Encounter Details Date Type Department Care Team (Latest Contact Info) Description 05/13/2024 Travel Social History Tobacco Use Types Packs/Day [...] with others, in a hotel, in a fpc, living outside on the street, on a [...] Description 05/20/2024 10:00 AM EST Clinical Support [facility] MEDICINE [address] [place] [address] Kary Earl, RN documented as of this encounter Visit Diagnoses Not on filedocumented in this encounter Additional Health Concerns Assessment Noted Time PHQ-9 Depression Total Score: 0 01/29/20 24 10:30 AM EDT documented as of this encounter Care Teams Screw Driver Operator Relationship Specialty Start Date End Date Rika Schmidt NP [address] [place] [address] PCP - General Family Medicine 01/15/23 John Solis Online TutorSenior Qualitative Researcher 04/27/24 documented as of this encounter
--- OUTSIDE RECORDS SUMMARY | 2024-05-16 11:37 | XMS_ITS | Encounter Summary ---
Author Organization [employer] Address [address] [facility] 7t [place] [address] Care Team Providers Care Programmer Or Analyst Name Role Phone Rika Schmidt NP Primary Care Provider [phone] Reason for Visit * Reason Onset Date Comments Surgery Clearance 05/13/2024 Encounter Details Date Type Department Care Team ([facility] st Contact Info) Description 05/13/2024 Telephone [facility] MEDICINE [address] [place] [address] Rika Schmidt NP [address] [place] [address] Surgery Clearance Social History Tobacco Use Types Packs/Day Years [...] encounter Miscellaneous Notes * Telephone Encounter - Kenna Lemus RN - 05/13/2024 10:[address] to [facility] to get information regarding surgical clearance. Informed Fermin pt would need a pre op appointment. Fermin states they can't schedule procedure without clearance from provider. Fermin then stated she will send to scheduling team to book for about a month out to give PCP office time to complete a pre op. Fermin requesting call back by RN on Thursday05/16/24 after they get in touch with pt to schedule and for RN to obtain procedure date. Details below: Surgery Date: TBD Surgical Procedure: Hernia Repair Surgeon's Name: Dr. Jostin Chiu Type of Anesthesia: MAC Surgeon's Office: Phone #: [phone], Fax #: [phone], Staff spoke with: Fermin Labs Needed: Not requesting specific labs, it is up to the provider on what he or she wants to order in order to clear pt EKG requested: Yes Last surgeon office note requested: Yes, [facility] fax number [phone] provided. Message re-tasked to 05/16/24 for RN to call Fermin to determine surgical procedure date. * Telephone Encounter - Iker Lubin - 05/13/2024 9:01 AM EST Tc from Fermin from [facility] requesting a Clearance for pt for Hernia repair Surgery. Fax Number : [phone] Contact : [phone] documented in this encounter Plan of Treatment Upcoming Encounters Date Type Department Care Team (Late st Contact Info) Description 05/20/2024 10:00 AM EST Clinical Support [facility] MEDICINE [address] [place] [address] Kary Earl RN documented as of this encounter Visit Diagnoses Not on filedocumented in this encounter Additional Health Concerns Assessment Noted Time PHQ-9 Depression Total Score: 0 01/29/20 24 10:30 AM EDT documented as of this encounter Care Teams Programmer Or Analyst Relationship Specialty Start Date End Date Rika Schmidt NP [address] [place] [address] PCP - General Family Medicine 01/15/23 John Solis Production Team AdvisorManager Respiratory Care 04/27/24 documented as of this encounter
--- OUTSIDE RECORDS SUMMARY | 2024-05-16 11:37 | XMS_ITS | Encounter Summary ---
Author Organization [email or web address] Address [address] 7[address] [place] [address] Care Team Providers Care Job Checker Name Role Phone Rika Schmidt IGNACIA Primary Care Provider [phone] Reason for Visit * Reason Onset Date Comments Med Refill 05/06/2024 Encounter Details Date Type Department Care Team ([facility] st Contact Info) Description 05/06/2024 Refill [facility] MEDICINE [address] [place] [address] Kary Earl RN Uncomplicated opioid use Social [...] with others, in a hotel, in a [facility], living outside on the street, on a [...] Description 05/20/2024 10:00 AM EST Clinical Support [facility] MEDICINE [address] [place] [address] Kary Earl, RN documented as of this encounter Visit Diagnoses Diagnosis Uncomplicated opioid use documented in this encounter Additional Health Concerns Assessment Noted Time PHQ-9 Depression Total Score: 0 01/29/20 24 10:30 AM EDT documented as of this encounter Care Teams Job Checker Relationship Specialty Start Date End Date Rika Schmidt NP [address] [place] [address] PCP - General Family Medicine 01/15/23 John Solis Can MarkerStatus Controller 04/27/24 documented as of this encounter
--- OUTSIDE RECORDS SUMMARY | 2024-05-16 11:37 | XMS_ITS | Encounter Summary ---
Author Organization [employer] Address [address] [facility] 7[address] [place] [address] Care Team Providers Care Fishing Vessel Deckhand Name Role Phone Rika Schmidt IGNACIA Primary Care Provider [phone] Reason for Visit * Reason Comments OBAT Encounter Details Date Type Department Care Team (Latest Contact Info) Description 05/06/2024 9:45 AM EST Office Visit [facility] MEDICINE [address] [place] [address] Deni Mejia MD [address] [place] [address] Uncomplicated opioid use (Primary Dx); Tobacco use [...] with others, in a hotel, in a alf, living outside on the street, on a [...] Progress Notes * Deni Mejia MD - 05/06/2024 9:45 AM EST Patient ID: Patient here today for Opioid Dependence RV. Patient on Sublocade dose of 100 mg monthly - last received 03/04/24. Suboxone 8/2 mg Rx 04/08/24. Weekly appointments. MD intake 02/02/24. LFTs: ordered, pt advised to go to lab 02/12/24. Patient actively enrolled in behavioral health services, at [facility]. BUSHRA ARMENDARIZ reviewed by provider. Last PCP appt: scheduled with Andreina Schmidt NP 03/25/24 Smoking status: 5 cigs/day 02/02/24 pre-contemplation. PrEP: declined 02/02/24 2024 UTOX: Bup Jaison said his dose is working well and he has no sfx or withdrawal symptoms. He said sometimes atnight, he feels sick, but he does not want to increase his dose. It was suggested that maybe he could take his dose a little later if he can tolerate that in order to avoid feeling sick before going to bed (or taking it at night if it is really a problem). He has no medical questions and is taking nicotine replacement to manage his tobacco use. He is down to about five cigarettes a day. Today 05/06/24 F/U for opioid use disorder Utox BUP Doing good. Would like to transfer from [facility] to another program. Decreasing smoking little by little. Now ~ cigarettes a day. Not using NRT. No ADRs. 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 Objective Physical Exam Constitutional: Appearance: Normal appearance. Neurological: Mental Status: He is alert and oriented to person, place, and time. Psychiatric: Mood and Affect: Mood normal. Behavior: Behavior normal. Thought Content: Thought content normal. Assessment/Plan Uncomplicated opioid use Utox BUP Doing good. Would like to transfer from [facility] to another program. Decreasing smoking little by little. Now ~ cigarettes a day. Not using NRT. No ADRs. 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 As above. By hx, doing well. Hoping to find another program so he could leave [facility]. To [place] [facility] post visitto meet with a head men's golf coach. Change to q 2 week visits next visit. Tobacco use disorder As above. Continue to review. Diagnoses and all orders for this visit: Uncomplicated opioid use - POCT YAHIR-14 Urine Drug Screen Tobacco use disorder This information has been [...] Description 05/20/2024 10:00 AM EST Clinical Support [facility] MEDICINE [address] [place] [address] Kary Earl, KATIANA documented as of this encounter Procedures Procedure Name Priority Date/Time Associated Diagnosis Comments POCT YAHIR-14 URINE DRUG SCREEN Routine 05/06/2024 11:47 AM EST Uncomplicated opioid use documented in this encounter Results * POCT YAHIR-14 Urine Drug Screen (05/06/2024 11:47 AM EST) THC Negative Cocaine Screen, Urine [...] obtained by clean catch procedure / Unknown 05/06/2024 11:47 AM EST us Deni Mejia MD POINT OF CARE TEST ENTER/EDIT ORDERABLES Final Result documented in this encounter Visit Diagnoses Diagnosis Uncomplicated opioid use- Primary Tobacco use disorder documented in this encounter Additional Health Concerns Assessment Noted Time PHQ-9 Depression Total Score: 0 01/29/20 24 10:30 AM EDT documented as of this encounter Care Teams Fishing Vessel Deckhand Relationship Specialty Start Date End Date Rika Schmidt NP [address] [place] [address] PCP - General Family Medicine 01/15/23 John Solis Logistics Project ManagerTicketing Agent 04/27/24 documented as of this encounter
--- OUTSIDE RECORDS SUMMARY | 2024-05-16 11:38 | XMS_ITS | Encounter Summary ---
Author Organization [employer] Address [address] [facility] 7t [place] [address] Care Team Providers Care Shrub Grower Name Role Phone Rika Schmidt NP Primary Care Provider [phone] Reason for Visit * Reason Onset Date Comments Care Coordination 04/27/2024 [facility] Care Plan Encounter Details Date Type Department Care Team ([facility] Contact Info) Description 04/27/2024 Telephone [facility] MEDICINE [address] [place] [address] Rika Schmidt NP [address] [place] [address] Care Coordination ([facility] Care Plan) Social History Tobacco Use Types Packs/Day Years [...] with others, in a hotel, in a intermediate, living outside on the street, on a [...] encounter Miscellaneous Notes * Telephone Encounter - Jonnathan Butler - 04/27/2024 10:19 AM EST PCP Designee has received and reviewed Care Plan from [facility]: Formula Technician: John Slois Contact Information: [phone] Care Plan scanned into patient's EHR and notification sent to PCP. documented in this encounter Plan of Treatment Upcoming Encounters Date Type Department Care Team (Late st Contact Info) Description 05/20/2024 10:00 AM EST Clinical Support [facility] MEDICINE [address] [place] [address] Kary Earl, RN documented as of this encounter Visit Diagnoses Not on filedocumented in this encounter Additional Health Concerns Assessment Noted Time PHQ-9 Depression Total Score: 0 01/29/20 24 10:30 AM EDT documented as of this encounter Care Teams Shrub Grower Relationship Specialty Start Date End Date Rika Schmidt NP [address] [place] [address] PCP - General Family Medicine 01/15/23 John Solis Rougher For CementSwitchboard Troubleshooter 04/27/24 documented as of this encounter
--- OUTSIDE RECORDS SUMMARY | 2024-05-16 11:38 | XMS_ITS | Encounter Summary ---
Author Organization [employer] Address [address] [facility] [address] 7[address] [place] [address] Care Team Providers Care Weigher Production Name Role Phone Rika Schmidt IGNACIA Primary Care Provider [phone] Encounter Details Date Type Department Care Team ([facility] st Contact Info) Description 05/12/2024 Telephone [facility] MEDICINE [address] [place] [address] Kirsten Bee MA Social History Tobacco Use Types Packs/Day Years [...] with others, in a hotel, in a longterm, living outside on the street, on a [...] encounter Miscellaneous Notes * Telephone Encounter - Kirsten Bee MA - 05/12/2024 4:14 PM EST Called pt to make aware of new apt for visit with dr. Mejia. Patient answered and agreed to new time. Pt aware of obat visit at 10am on 05/13/24 and f/u pcp apt @ 11 am on 05/13/24 documented in this encounter Plan of Treatment Upcoming Encounters Date Type Department Care Team (Late st Contact Info) Description 05/20/2024 10:00 AM EST Clinical Support [facility] MEDICINE [address] [place] [address] Kary Earl, RN documented as of this encounter Visit Diagnoses Not on filedocumented in this encounter Additional Health Concerns Assessment Noted Time PHQ-9 Depression Total Score: 0 01/29/20 24 10:30 AM EDT documented as of this encounter Care Teams Weigher Production Relationship Specialty Start Date End Date Rika Schmidt NP [address] [place] [address] PCP - General Family Medicine 01/15/23 John Solis Furniture StainerTwine Reeling Machine Operator 04/27/24 documented as of this encounter
--- OUTSIDE RECORDS SUMMARY | 2024-05-16 11:38 | XMS_ITS | Encounter Summary ---
Author Organization [employer] Address [address] [facility] 7t [place] [address] Care Team Providers Care Longwall Machine Operator Helper Name Role Phone Rika Schmidt EMBEDDED SOFTWARE PROGRAMMER Primary Care Provider [phone] Encounter Details Date Type Department Care Team (Latest Contact Info) Description 04/29/2024 Travel Social History Tobacco Use Types Packs/Day [...] with others, in a hotel, in a residential, living outside on the street, on a [...] Description 05/20/2024 10:00 AM EST Clinical Support [facility] MEDICINE [address] [place] [address] Kary Earl, RN documented as of this encounter Visit Diagnoses Not on filedocumented in this encounter Additional Health Concerns Assessment Noted Time PHQ-9 Depression Total Score: 0 01/29/20 24 10:30 AM EDT documented as of this encounter Care Teams Longwall Machine Operator Helper Relationship Specialty Start Date End Date Rika Schmidt NP [address] [place] [address] PCP - General Family Medicine 01/15/23 John Solis R ProgrammerSteam Hoist Operator 04/27/24 documented as of this encounter
--- OUTSIDE RECORDS SUMMARY | 2024-05-16 11:38 | XMS_ITS | Encounter Summary ---
Author Organization [employer] Address [address] 7[address] [place] [address] Care Team Providers Care Dental Laboratory Manager Name Role Phone Rika Schmidt IGNACIA Primary Care Provider [phone] Reason for Visit * Reason Onset Date Comments Med Refill 04/22/2024 Encounter Details Date Type Department Care Team ([facility] st Contact Info) Description 04/22/2024 Refill [facility] MEDICINE [address] [place] [address] Kary Earl RN Uncomplicated opioid use Social [...] others, in a hotel, in a senior care, living outside on the street, on a [...] 10:00 AM EST Clinical Support [facility] MEDICINE [address] [place] [address] Kary Earl, RN documented as of this encounter Visit Diagnoses Diagnosis Uncomplicated opioid use documented in this encounter Additional Health Concerns Assessment Noted Time PHQ-9 Depression Total Score: 0 01/29/20 24 10:30 AM EDT documented as of this encounter Care Teams Dental Laboratory Manager Relationship Specialty Start Date End Date Rika Schmidt NP [address] [place] [address] PCP - General Family Medicine 01/15/23 documented as of this encounter
--- OUTSIDE RECORDS SUMMARY | 2024-05-16 11:38 | XMS_ITS | Encounter Summary ---
Author Organization [employer] Address [address] [facility] 7t [place] [address] Care Team Providers Care Link Trainer Name Role Phone Rika Schmidt IGNACIA Primary Care Provider [phone] Reason for Visit * Reason Comments OBAT Encounter Details Date Type Department Care Team (Latest Contact Info) Description 04/22/2024 10:15 AM EST Office Visit [facility] MEDICINE [address] [place] [address] Deni Mejia MD 230 [place] [address] Uncomplicated opioid use (Primary Dx); Tobacco use disorder; Opioid use disorder Social History Tobacco Use Types [...] Progress Notes * Deni Mejia MD - 04/22/2024 10:15 AM EST Patient ID: Patient here today for Opioid Dependence RV. Patient on Sublocade dose of 100 mg monthly - last received 03/04/24. Suboxone 8/2 mg Rx 04/08/24. Weekly appointments. MD intake 02/02/24. LFTs: ordered, pt advised to go to lab 02/12/24. Patient actively enrolled in behavioral health services, at [facility]. BUSHRA ARMENDARIZ reviewed by provider. Last PCP appt: scheduled with Andreina Schmidt NP 03/25/24 Smoking status: 5 cigs/day 02/02/24 pre-contemplation. PrEP: declined 02/02/24 04/15/23 Uncomplicated opioid use Utox BUP Hep A vaccine-given # 1 How is pt doing on Suboxone? Good. Feeling better on 8/2 daily. Declines restarting Sublocade. NO ADR. Smoking ~ 5 cigarettes a day. First cigarette ~ 30 minute post awakening. Reports has never been onNRT and would like to start. Agrees to Hep A vaccine. Met with Yogesh Salmon wrestling coach. Yogesh is helping him with some issues @ [facility]. As above. Reports doing well on Suboxone. No ADRs. Declines restarting Sublocade. Met with Yogesh [place] wrestling coach. Hep A # 1 F/U 1 week. Tobacco use disorder As above. Rxed nicotine patches and lozenges. Instructed in use. Continue to review. Today 04/22/24 F/U for opioid use disorder Utox BUP How is pt doing on Suboxone? Good, does is good. Any substance use/alcohol? No, no. Are they taking medication as prescribed? Yes. Any adverse effects? No Want to talk to [facility] or wrestling coach? Yogesh Salmon wrestling coach call [facility] to facilitate Jaison connecting with a wrestling coach @ [facility]. He has not yet heard. Tobacco-has not used nicotine lozenges. Forgets because all meds locked in [facility] and would need to ask. He has a therapist @ [facility]. 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 Objective Physical Exam Constitutional: Appearance: Normal appearance. Neurological: Mental Status: He is alert and oriented to person, place, and time. Psychiatric: Mood and Affect: Mood normal. Behavior: Behavior normal. Thought Content: Thought content normal. Assessment/Plan Uncomplicated opioid use Utox BUP How is pt doing on Suboxone? Good, does is good. Any substance use/alcohol? No, no. Are they taking medication as prescribed? Yes. Any adverse effects? No Want to talk to [facility] or wrestling coach? Yogesh Salmon wrestling coach call [email or web address] to facilitate Jaison connecting with a wrestling coach @ [facility]. He has not yet heard. Tobacco-has not used nicotine lozenges. Forgets because all meds locked in [facility] and would need to ask. He has a therapist @ [facility]. 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 F/U 1 week. Tobacco use disorder As above. Encouraged to try to use the nicotine lozenges. Continue to inquire. Diagnoses and all orders for this visit: [...] Description 05/20/2024 10:00 AM EST Clinical Support [facility] MEDICINE [address] [place] [phone] Kary Earl RN documented as of this encounter Procedures Procedure Name Priority Date/Time Associated Diagnosis Comments POCT YAHIR-14 URINE DRUG SCREEN Routine 04/22/2024 10:19 AM EST Uncomplicated opioid use documented in this encounter Results * POCT YAHIR-14 Urine Drug Screen (04/22/2024 10:19 AM EST) THC Negative Cocaine Screen, Urine [...] obtained by clean catch procedure / Unknown 04/22/2024 10:19 AM EST us Deni Mejia MD POINT OF CARE TEST ENTER/EDIT ORDERABLES Final Result documented in this encounter Visit Diagnoses Diagnosis Uncomplicated opioid use- Primary Tobacco use disorder Opioid use disorder documented in this encounter Additional Health Concerns Assessment Noted Time PHQ-9 Depression Total Score: 0 01/29/20 24 10:30 AM EDT documented as of this encounter Care Teams Link Trainer Relationship Specialty Start Date End Date Rika Schmidt NP [address] [place] [address] PCP - General Family Medicine 01/15/23 documented as of this encounter
--- OUTSIDE RECORDS SUMMARY | 2024-05-16 11:38 | XMS_ITS | Encounter Summary ---
Author Organization [employer] Address [address] [facility] [address] [facility] [address] 7[address] [place] [address] Care Team Providers Care City Supervisor Name Role Phone Rika Schmidt IGNACIA Primary Care Provider [phone] Reason for Visit * Reason Onset Date Comments chartprep 05/10/2024 Encounter Details Date Type Department Care Team ([facility] Contact Info) Description 05/10/2024 Telephone [facility] MEDICINE [address] [place] [address] Robert Jackson MA chartprep Social History Tobacco Use Types Packs/Day Years [...] with others, in a hotel, in a halfway, living outside on the street, on a [...] encounter Miscellaneous Notes * Telephone Encounter - Robert Jackson MA - 05/10/2024 10:12 AM EST Chart Prep Labs: done Images: not applicable Vaccines due: Covid Due, Hep B Due, PCV20 Due, and Flu Due Referrals: General Surgery complete appt 05/10/24@ 10:00 am Screenings: Not Applicable Overdue care gaps: None documented in this encounter Plan of Treatment Upcoming Encounters Date Type Department Care Team (Late st Contact Info) Description 05/20/2024 10:00 AM EST Clinical Support [facility] MEDICINE [address] [place] [address] Kary Earl, KATIANA documented as of this encounter Visit Diagnoses Not on filedocumented in this encounter Additional Health Concerns Assessment Noted Time PHQ-9 Depression Total Score: 0 01/29/20 24 10:30 AM EDT documented as of this encounter Care Teams City Supervisor Relationship Specialty Start Date End Date Rika Schmidt NP [address] [place] [address] PCP - General Family Medicine 01/15/23 John Solis Securities AnalystVenetian Blind Cleaner 04/27/24 documented as of this encounter
--- OUTSIDE RECORDS SUMMARY | 2024-05-16 11:38 | XMS_ITS | Encounter Summary ---
Author Organization [employer] Address [address] [facility] 7t [place] [address] Care Team Providers Care Electric Range Assembler Name Role Phone Rika Schmidt IGNACIA Primary Care Provider [phone] Reason for Visit * Reason Comments Med Refill Encounter Details Date Type Department Care Team ([facility] st Contact Info) Description 04/15/2024 Refill [facility] MEDICINE [address] [place] [address] Deni Mejia MD [address] [place] [address] Opioid use disorder Social History Tobacco Use [...] Telephone Encounter - Kenna Lemus RN - 04/26/2024 8:39 AM EST TC placed to pt via [employer] poultry hanger (Venkat ID#[id number]) to inform of message from PCP, Please call and inform patient of stable lab result . No answer, LVM for pt to call office back and ask to speak to the blue team nurses. documented in this encounter Plan of Treatment Upcoming Encounters Date Type Department Care Team (Late st Contact Info) Description 05/20/2024 10:00 AM EST Clinical Support [facility] MEDICINE [address] [place] [phone] Kary Earl, RN documented as of this encounter Visit Diagnoses Diagnosis Opioid use disorder documented in this encounter Additional Health Concerns Assessment Noted Time PHQ-9 Depression Total Score: 0 01/29/20 24 10:30 AM EDT documented as of this encounter Care Teams Electric Range Assembler Relationship Specialty Start Date End Date Rika Schmidt NP [address] [place] [address] PCP - General Family Medicine 01/15/23 documented as of this encounter
--- OUTSIDE RECORDS SUMMARY | 2024-05-16 11:38 | XMS_ITS | Encounter Summary ---
Author Organization [employer] Address [address] 7[address] [place] [address] Care Team Providers Care Director Social Name Role Phone Rika Schmidt IGNACIA Primary Care Provider [phone] Reason for Visit * Reason Comments OBAT F/U Encounter Details Date Type Department Care Team (Latest Contact Info) Description 04/29/2024 9:30 AM EST Clinical Support [facility] MEDICINE [address] [place] [address] Kary Earl RN Uncomplicated opioid use (Primary Dx) Social History Tobacco Use Types Packs/Day Years [...] with others, in a hotel, in a detention, living outside on the street, on a [...] as of this encounter Progress Notes * Kary Earl RN - 04/29/2024 9:30 AM EST Patient ID: Patient here today for Opioid Dependence RV. Patient on Sublocade dose of 100 mg monthly - last received 03/04/24. Suboxone 8/2 mg Rx 04/08/24. Weekly appointments. MD intake 02/02/24. LFTs: ordered, pt advised to go to lab 02/12/24. Patient actively enrolled in behavioral health services, at [facility]. BUSHRA ARMENDARIZ reviewed by provider. Last PCP appt: scheduled with Andreina Schmidt NP 03/25/24 Smoking status: 5 cigs/day 02/02/24 pre-contemplation. PrEP: declined 02/02/24 LAST VISIT: 04/22/24 F/U for opioid use disorder Utox BUP How is pt doing on Suboxone? Good, does is good. Any substance use/alcohol? No, no. Are they taking medication as prescribed? Yes. Any adverse effects? No Want to talk to N or investment recovery technician? Yogesh Salmon, investment recovery technician call [facility] to facilitate Jaison connecting with a investment recovery technician @ [facility]. He has not yet heard. Tobacco-has not used nicotine lozenges. Forgets because all meds locked in [employer] and would need to ask. He has a therapist @ [facility]. Planning on getting unemployment and the to [...] adverse effects? No Want to talk to [facility] or investment recovery technician? Yogesh Salmon, investment recovery technician call [facility] to facilitate Jaison connecting with a investment recovery technician @ [facility]. He has not yet heard. Tobacco-has not used nicotine lozenges. Forgets because all meds locked in [facility] and would need to ask. He has a therapist @ [facility]. 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 F/U 1 week. Tobacco use disorder As above. Encouraged to try to use the nicotine lozenges. Continue to inquire. Diagnoses and all orders for this visit: Uncomplicated opioid use - POCT YAHIR-14 Urine Drug Screen THIS VISIT: 2024 UTOX: Bup Jaison said his dose [...] down to about five cigarettes a day. Plan: Continue dose of 8/2 mg and return in a week. This information has been disclosed to you [...] Description 05/20/2024 10:00 AM EST Clinical Support [address] [address] Kary Earl, RN documented as of this encounter Procedures Procedure Name Priority Date/Time Associated Diagnosis Comments POCT YAHIR-14 URINE DRUG SCREEN Routine 04/29/2024 9:55 AM EST Uncomplicated opioid use documented in this encounter Results * POCT YAHIR-14 Urine Drug Screen (04/29/2024 9:55 AM EST) THC Negative Cocaine Screen, Urine [...] obtained by clean catch procedure / Unknown 04/29/2024 9:55 AM EST us Deni Mejia MD POINT OF CARE TEST ENTER/EDIT ORDERABLES Final Result documented in this encounter Visit Diagnoses Diagnosis Uncomplicated opioid use- Primary documented in this encounter Additional Health Concerns Assessment Noted Time PHQ-9 Depression Total Score: 0 01/29/20 24 10:30 AM EDT documented as of this encounter Care Teams Director Social Relationship Specialty Start Date End Date Rika Schmidt NP [address] [place] [address] PCP - General Family Medicine 01/15/23 John Solis Leather Goods Sales RepresentativeCircuit Court Judge 04/27/24 documented as of this encounter
--- OUTSIDE RECORDS SUMMARY | 2024-05-16 11:38 | XMS_ITS | Encounter Summary ---
Author Organization [employer] Address [address] [facility] 7t [place] [address] Care Team Providers Care Garage Door Technician Name Role Phone Rika Schmidt SUPERVISOR SOLDERING Primary Care Provider [phone] Encounter Details Date Type Department Care Team (Latest Contact Info) Description 04/22/2024 Travel Social History Tobacco Use Types Packs/Day [...] with others, in a hotel, in a retirement, living outside on the street, on a [...] Description 05/20/2024 10:00 AM EST Clinical Support [facility] MEDICINE [address] [place] [address] Kary Earl, RN documented as of this encounter Visit Diagnoses Not on filedocumented in this encounter Additional Health Concerns Assessment Noted Time PHQ-9 Depression Total Score: 0 01/29/20 24 10:30 AM EDT documented as of this encounter Care Teams Garage Door Technician Relationship Specialty Start Date End Date Rika Schmidt NP [address] [place] [address] PCP - General Family Medicine 01/15/23 documented as of this encounter
--- OUTSIDE RECORDS SUMMARY | 2024-05-16 11:38 | XMS_ITS | Encounter Summary ---
Author Organization [employer] Address [address] [facility] 7t [place] [address] Care Team Providers Care Political Scientist Name Role Phone Rika Schmidt IGNACIA Primary Care Provider [phone] Reason for Visit * Reason Onset Date Comments Error (VOID this visit) 04/26/2024 Encounter Details Date Type Department Care Team ([facility] Contact Info) Description 04/26/2024 Telephone [facility] MEDICINE [address] [place] [address] Kenna Lemus RN Error (VOID this visit) Social History Tobacco Use Types Packs/Day Years [...] with others, in a hotel, in a snf, living outside on the street, on a [...] Description 05/20/2024 10:00 AM EST Clinical Support [facility] MEDICINE [address] [place] [address] Kary Earl, KATIANA documented as of this encounter Visit Diagnoses Not on filedocumented in this encounter Additional Health Concerns Assessment Noted Time PHQ-9 Depression Total Score: 0 01/29/20 24 10:30 AM EDT documented as of this encounter Care Teams Political Scientist Relationship Specialty Start Date End Date Rika Schmidt NP [address] [place] [address] PCP - General Family Medicine 01/15/23 documented as of this encounter
== END 2024-05-16 11:10 | disposition home or self-care (01) ==
PROVIDERS: PCP Registered Nurse; Visit Provider Surgery
DX: K40.30 Unilateral inguinal hernia, with obstruction, without gangrene, not specified as recurrent (principal)
CPT/HCPCS: 99214

== ENCOUNTER → 2024-05-16 10:44 | Outpatient (BNVA) | payer MEDICAID, SELFPAY | PROVIDERS: PCP Registered Nurse; Visit Provider Surgery | DX: K40.30 Unilateral inguinal hernia, with obstruction, without gangrene, not specified as recurrent (principal) | CPT/HCPCS: 99212 ==

== ENCOUNTER 2024-05-25 09:43 | Outpatient (REF) | payer MEDICAID, SELFPAY ==
--- OUTSIDE RECORDS SUMMARY | 2024-05-25 11:03 | XMS_ITS | Encounter Summary ---
Author Organization [employer] Address [address] [facility] 7t [place] [address] Care Team Providers Care Care Management Associate Name Role Phone Rika Schmidt IGNACIA Primary Care Provider [phone] Reason for Visit * Reason Comments OBAT Encounter Details Date Type Department Care Team (Latest Contact Info) Description 05/06/2024 9:45 AM EST Office Visit [facility] MEDICINE [address] [place] [address] Deni Mejia MD [address] [place] [address] Uncomplicated opioid use (Primary Dx); Tobacco use [...] with others, in a hotel, in a group home, living outside on the street, on [...] actively enrolled in behavioral health services, at [facility]. BUSHRA ARMENDARIZ reviewed by provider. Last PCP [...] Doing good. Would like to transfer from [facility] to another program. Decreasing smoking little by little. Now ~ cigarettes a day. Not using NRT. No ADRs. 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 Objective Physical Exam Constitutional: Appearance: Normal appearance. Neurological: Mental Status: He is alert and oriented to person, place, and time. Psychiatric: Mood and Affect: Mood normal. Behavior: Behavior normal. Thought Content: Thought content normal. Assessment/Plan Uncomplicated opioid use Utox BUP Doing good. Would like to transfer from [facility] to another program. Decreasing smoking little by little. Now ~ cigarettes a day. Not using NRT. No ADRs. 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 As above. By hx, doing well. Hoping to find another program so he could leave [facility]. To [place] post visitto meet with a leadership coach. Change to q 2 week visits [...] Care Team (Late st Contact Info) Description 05/27/2024 9:45 AM EST Clinical Support [address] [address] Kary Earl, RN 06/03/2024 10:30 AM EST Clinical Support [address] [address] Kary Earl, RN documented as of this [...] documented as of this encounter Care Teams Care Management Associate Relationship Specialty Start Date End Date Rika Schmidt NP [address] [place] [address] PCP - General Family Medicine 01/15/23 John Solis Glass Mould CleanerHuman Services Worker 04/27/24 documented as of this encounter
--- OUTSIDE RECORDS SUMMARY | 2024-05-25 11:03 | XMS_ITS | Encounter Summary ---
Author Organization [employer] Address [address] [facility] 7t [place] [address] Care Team Providers Care Driller Machine Name Role Phone Rika Schmidt WIRELINE FIELD OPERATOR Primary Care Provider [phone] Encounter Details Date Type Department Care Team [...] Description 05/27/2024 9:45 AM EST Clinical Support [address] [address] Kary Earl, RN 06/03/2024 10:30 AM EST Clinical Support [address] [address] Kary Earl, RN documented as of this encounter Visit Diagnoses Not on filedocumented in this encounter Additional Health Concerns Assessment Noted Time PHQ-9 Depression Total Score: 0 01/29/20 24 10:30 AM EDT documented as of this encounter Care Teams Driller Machine Relationship Specialty Start Date End Date Rika Schmidt NP [address] [place] [address] PCP - General Family Medicine 01/15/23 John Solis Import/Export SpecialistProject Superintendent 04/27/24 documented as of this encounter
--- OUTSIDE RECORDS SUMMARY | 2024-05-25 11:03 | XMS_ITS | Encounter Summary ---
Author Organization [employer] Address [address] [facility] 7t [place] [address] Care Team Providers Care Prototype Fabricator Name Role Phone Rika Schmidt ENGINEERING PROJECT DESIGNER Primary Care Provider [phone] Encounter Details Date Type Department Care Team [...] Description 05/27/2024 9:45 AM EST Clinical Support [address] [address] Kary Earl, RN 06/03/2024 10:30 AM EST Clinical Support [address] [address] Kary Earl, RN documented as of this encounter Visit Diagnoses Not on filedocumented in this encounter Additional Health Concerns Assessment Noted Time PHQ-9 Depression Total Score: 0 01/29/20 24 10:30 AM EDT documented as of this encounter Care Teams Prototype Fabricator Relationship Specialty Start Date End Date Rika Schmidt NP [address] [place] [address] PCP - General Family Medicine 01/15/23 John Solis Cutter And Paster Press ClippingsEngineering Technical Writer 04/27/24 documented as of this encounter
--- OUTSIDE RECORDS SUMMARY | 2024-05-25 11:03 | XMS_ITS | Encounter Summary ---
Author Organization [employer] Address [address] [facility] [address] 7t [place] [address] Care Team Providers Care Refrigeration Repair Supervisor Name Role Phone Rika Schmidt IGNACIA Primary Care Provider [phone] Reason for Visit * Reason Onset Date Comments Med Refill 04/29/2024 Encounter Details Date Type Department Care Team ([facility] st Contact Info) Description 04/29/[address] [facility] MEDICINE [address] [place] [address] Kary Earl RN Uncomplicated opioid use Social [...] Description 05/27/2024 9:45 AM EST Clinical Support [address] [address] Kary Earl, RN 06/03/2024 10:30 AM EST Clinical Support [address] [address] Kary Earl, RN documented as of this encounter Visit Diagnoses Diagnosis Uncomplicated opioid use documented in this encounter Additional Health Concerns Assessment Noted Time PHQ-9 Depression Total Score: 0 01/29/20 24 10:30 AM EDT documented as of this encounter Care Teams Refrigeration Repair Supervisor Relationship Specialty Start Date End Date Rika Schmidt NP [address] [place] [address] PCP - General Family Medicine 01/15/23 John Solis Ecological Technical OfficerDialysis Rn 04/27/24 documented as of this encounter
--- OUTSIDE RECORDS SUMMARY | 2024-05-25 11:03 | XMS_ITS | Encounter Summary ---
Author Organization [employer] Address 75 [facility] 7t [place] [address] Care Team Providers Care Wood Craftsman Name Role Phone Rika Schmidt NP Primary Care Provider [phone] Reason for Visit * Reason Onset Date Comments Med Refill 05/06/2024 Encounter Details Date Type Department Care Team ([facility] Contact Info) Description 05/06/2024 Telephone [facility] MEDICINE [address] [place] [address] Rika Schmidt NP [address] [place] [address] Med Refill Social History Tobacco Use Types [...] Description 05/27/2024 9:45 AM EST Clinical Support [facility] MEDICINE [address] [place] [address] Kary Earl, RN 06/03/2024 10:30 AM EST Clinical Support [facility] MEDICINE [address] [place] [address] Kary Earl, RN documented as of this encounter Visit Diagnoses Not on filedocumented in this encounter Additional Health Concerns Assessment Noted Time PHQ-9 Depression Total Score: 0 01/29/20 24 10:30 AM EDT documented as of this encounter Care Teams Wood Craftsman Relationship Specialty Start Date End Date Rika Schmidt NP [address] [place] [address] PCP - General Family Medicine 01/15/23 John Solis Room Service Waiter/WaitressStatuary Painter 04/27/24 documented as of this encounter
--- OUTSIDE RECORDS SUMMARY | 2024-05-25 11:03 | XMS_ITS | Encounter Summary ---
Author Organization [employer] Address [address] [facility] 7t [place] [address] Care Team Providers Care Thread Checker Name Role Phone Rika Schmidt IGNACIA Primary Care Provider [phone] Reason for Visit * Reason Comments Med Refill Encounter Details Date Type Department Care Team ([facility] st Contact Info) Description 05/06/2024 Refill [facility] MEDICINE [address] [place] [address] Deni Mejia MD [address] [place] [address] Tobacco use disorder Social History Tobacco Use [...] Description 05/27/2024 9:45 AM EST Clinical Support [address] [address] Kary Earl, RN 06/03/2024 10:30 AM EST Clinical Support [address] [address] Kary Earl, RN documented as of this encounter Visit Diagnoses Diagnosis Tobacco use disorder documented in this encounter Additional Health Concerns Assessment Noted Time PHQ-9 Depression Total Score: 0 01/29/20 24 10:30 AM EDT documented as of this encounter Care Teams Thread Checker Relationship Specialty Start Date End Date Rika Schmidt NP [address] [place] [address] PCP - General Family Medicine 01/15/23 John Solis Technology Applications EngineerAeronautical Drafter 04/27/24 documented as of this encounter
--- OUTSIDE RECORDS SUMMARY | 2024-05-25 11:03 | XMS_ITS | Encounter Summary ---
Author Organization [employer] Address [address] [facility] [address] 7t [place] [address] Care Team Providers Care Biopsychologist Name Role Phone Rika Schmidt IGNACIA Primary Care Provider [phone] Reason for Visit * Reason Comments [facility] Recovery Supports Encounter Details Date Type Department Care Team ([facility] st Contact Info) Description 05/06/2024 Patient Outreach [facility] MEDICINE [address] [place] [address] Jorge Alberto Lora [address] [place] [address] Recovery Supports Social History Tobacco Use Types [...] with Jaison today. Setting: in person at [facility] Recovery Wellness Goals worked on: Social Stability Action taken/next steps: Offered person centered recovery support Additional comments: Today, Jaison attended his appointment. I briefly spoke with him as he is looking for an inpatient program. I told him about the [facility] and ROSE Zuñiga informed me that the patient needs to go through the program change procedure, as the staff at [facility] are in charge of the [facility] program. I also mentioned [employer], which is offering housing resources. Jorge Alberto Lora documented in this encounter Plan of Treatment Upcoming Encounters Date Type Department Care Team (Late st Contact Info) Description 05/27/2024 9:45 AM EST Clinical Support [facility] MEDICINE [address] [place] [address] Kary Earl, RN 06/03/2024 10:30 AM EST Clinical Support [facility] MEDICINE [address] [place] [address] Kary Earl, RN documented as of this encounter Visit Diagnoses Not on filedocumented in this encounter Additional Health Concerns Assessment Noted Time PHQ-9 Depression Total Score: 0 01/29/20 24 10:30 AM EDT documented as of this encounter Care Teams Biopsychologist Relationship Specialty Start Date End Date Rika Schmidt NP [address] [place] [phone] PCP - General Family Medicine 01/15/23 John Solis Sponge MakerPc Network Technician 04/27/24 documented as of this encounter
--- OUTSIDE RECORDS SUMMARY | 2024-05-25 11:03 | XMS_ITS | Encounter Summary ---
Author Organization [employer] Address [address] [facility] 7t [place] [address] Care Team Providers Care Cartoon Artist Name Role Phone Rika Schmidt IGNACIA Primary Care Provider [phone] Reason for Visit * Reason Onset Date Comments Med Refill 04/29/2024 Encounter Details Date Type Department Care Team ([facility] st Contact Info) Description 04/29/2024 Refill [facility] MEDICINE [address] [place] [address] Kary Earl RN Social History Tobacco Use [...] with others, in a hotel, in a long term, living outside on the street, on a [...] Description 05/27/2024 9:45 AM EST Clinical Support [address] [address] Kary Earl, RN 06/03/2024 10:30 AM EST Clinical Support [address] [address] Kary Earl, RN documented as of this encounter Visit Diagnoses Not on filedocumented in this encounter Additional Health Concerns Assessment Noted Time PHQ-9 Depression Total Score: 0 01/29/20 24 10:30 AM EDT documented as of this encounter Care Teams Cartoon Artist Relationship Specialty Start Date End Date Rika Schmidt NP [address] [place] [address] PCP - General Family Medicine 01/15/23 John Solis Certified Orthotist/PedorthistEvent Staff 04/27/24 documented as of this encounter
--- OUTSIDE RECORDS SUMMARY | 2024-05-25 11:03 | XMS_ITS | Encounter Summary ---
Author Organization [employer] Address [address] [facility] [address] 7t [place] [address] Care Team Providers Care Plate Glass Installer Name Role Phone Rika Schmidt IGNACIA Primary Care Provider [phone] Reason for Visit * Reason Comments OBAT F/U Encounter Details Date Type Department Care Team (Latest Contact Info) Description 05/13/2024 10:00 AM EST Clinical Support [facility] MEDICINE [address] [place] [address] Kary Earl RN Uncomplicated opioid use (Primary [...] with others, in a hotel, in a prison, living outside on the street, on a [...] Doing good. Would like to transfer from [facility] to another program. Decreasing smoking little by little. Now ~ cigarettes a day. Not using NRT. No ADRs. 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 As above. By hx, doing well. Hoping to find another program so he could leave [facility]. To [facility] post visitto meet with a coach. Change to q 2 week visits [...] actively enrolled in behavioral health services, at [facility]. BUSHRA ARMENDARIZ reviewed by provider. Last PCP appt: scheduled with Andreina Schmidt NP 03/25/24 Smoking status: 5 cigs/day 02/02/24 pre-contemplation. PrEP: declined 02/02/24 Last visit: 05/06/24 F/U for opioid use disorder Utox BUP Doing good. Would like to transfer from [facility] to another program. Decreasing smoking little by little. Now ~ cigarettes a day. Not using NRT. No ADRs. 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 By hx, doing well. Hoping to find another program so he could leave [facility]. To [facility] post visitto meet with a coach. Change to q 2 week visits [...] Description 05/27/2024 9:45 AM EST Clinical Support [address] [address] Kary Earl, KATIANA 06/03/2024 10:30 AM EST Clinical Support [address] [address] Kary Earl, RN documented as of this [...] documented as of this encounter Care Teams Plate Glass Installer Relationship Specialty Start Date End Date Rika Schmidt NP [address] [place] [address] PCP - General Family Medicine 01/15/23 John Solis Form Setter HelperTitle I Director 04/27/24 documented as of this encounter
--- OUTSIDE RECORDS SUMMARY | 2024-05-25 11:03 | XMS_ITS | Encounter Summary ---
Author Organization [employer] Address 75 [facility] 7t [place] [address] Care Team Providers Care Sales Support Consultant Name Role Phone Rika Schmidt IGNACIA Primary Care Provider [phone] Encounter Details Date Type Department Care Team ([facility] Contact Info) Description 05/24/2024 9:45 AM EST Office Visit [facility] [address] [place], [place] [phone] Pramod Whitten MD [address] [place] [address] Preop examination (Primary Dx) Social History Tobacco Use Types [...] AM EDT documented as of this encounter Last Filed Vital Signs Vital Sign Reading Time Taken Comments Blood Pressure 110/66 05/24/2024 9:19 AM EST Pulse 67 05/24/2024 9:19 AM EST Temperature 36.7 ??C (98.1 ??F) 05/24/2024 9:19 AM ES T Respiratory Rate 20 05/24/2024 9:19 AM EST Oxygen Saturation 98% 05/24/2024 9:19 AM EST Inhaled Oxygen Concentration - - Weight 76.2 kg (168 lb) 05/24/2024 9:19 AM EST Height 167.6 cm (5' 6 ) 05/24/2024 9:19 AM EST Body Mass Index 27.12 05/24/2024 9:19 AM EST documented in this encounter Plan of Treatment Upcoming Encounters Date Type Department Care Team (Late st Contact Info) Description 05/27/2024 9:45 AM EST Clinical Support [facility] MEDICINE [address] [place] [address] Kary Earl, RN 06/03/2024 10:30 AM EST Clinical Support [facility] MEDICINE [address] [place] [address] Kary Earl, RN Scheduled Orders Name Type Priority Associated Diagnoses Orde r Schedule CBC auto differential Lab Routine Preop examination Expected: 05/24/2024 (Approximate), Expires: 05/24/2025 Basic Metabolic Panel Lab Routine Preop examination Expected: 05/24/2024 (Approximate), Expires: 05/24/2025 Prothrombin Time-INR Lab Routine Preop examination Expected: 05/24/2024, Expires: 05/24/2025 Partial Thromboplastin Time, Activated (APTT) Lab Routine Preop examination Expected: 05/24/2024, Expires: 05/24/2025 documented as of this encounter Procedures Procedure Name Priority Date/Time Associated Diagnosis Comments ECG 12-LEAD Routine 05/24/2024 10:32 AM EST Preop examination documented in this encounter Results * ECG 12 lead (05/24/2024 10:32 AM EST) Narrative Pramod Whitten MD - 05/24/2024 10:32 AM EST Normal sinus rhythm HR 66 Qtc:356 Pr:175 us Pramod Lora MD ECG ORDERABLES Fi nal Result documented in this encounter Visit Diagnoses Diagnosis Preop examination- Primary Unspecified pre-operative examination documented in this encounter Additional Health Concerns Assessment Noted Time PHQ-9 Depression Total Score: 0 01/29/20 24 10:30 AM EDT documented as of this encounter Care Teams Sales Support Consultant Relationship Specialty Start Date End Date Rika Schmidt NP [address] [place] [address] PCP - General Family Medicine 01/15/23 John Solis Medical Coding InstructorCredit Counselor 04/27/24 documented as of this encounter
--- OUTSIDE RECORDS SUMMARY | 2024-05-25 11:03 | XMS_ITS | Clinical Summary ---
Author Organization [employer] Address [address] [place] [address] Care Team Providers Care Building Cleaner Name Role Phone Rika Schmidt IGNACIA Primary Care Provider [phone] Allergies No known active allergies Medications * [...] prn constipation. 60 capsule 5 024 Active sennosides (Senokot) 8.6 MG tabletIndications :Uncomplicated [...] instead of a cigarette. 72 lozenge 1 01/03/2 025 Active cloNIDine (Catapres) 0.1 MG tabletIndications :Uncomplicated opioid use 1 tablet PO qAM 30 tablet 1 025 Active hydrOXYzine pamoate (Vistaril) 25 MG capsuleIndication s:Uncomplicated opioid use 2 caps PO at bedtime. May cause drowsiness. 60 capsule 1 Active traZODone (Desyrel) 100 MG tabletIndications :Uncomplicated opioid use Take 1 tablet (100 mg) by mouth at bedtime. 30 tablet 1 025 2024 Active Buprenorphine HCl-Naloxone HCl (Suboxone) 8-2 MG SL filmIndications:U ncomplicated opioid use Place 1 Film under the tongue Once per day for 7 days. Do not start before May 27, 2024. 7 Film 025 2024 Active buprenorphine ER (Sublocade) 100 mg/0.5mL injectionIndicati ons:Uncomplicated opioid use Inject 0.5 mL (1 each) under the skin every month to absorb continually. 0.5 mL 5 024 2024 Discontinued(D ose adjustment) traZODone (Desyrel) 100 MG tablet Take 1 [...] May 13, 2024. 14 Film 025 2024 Discontinued(R eorder (will not [...] will benefit from keeping MH services at [facility]. At this time Jaison Oliver meets criteria for Visit Diagnoses: Problem List Items Addressed This Visit Other Opioid use disorder Persistent depressive disorder with anxious distress, currently moderate Patient ready to address current needs already engaged in services Strengths include willing to seek help PLAN: 1. Follow up with [facility] [place]: Not recommended for follow-up 2. Patient goal is to improve mental health and become sober 3. Behavioral Recommendations a. Re connect with [employer] b. Keeping MH services c. Participate in [...] will benefit from keeping MH services at [facility]. At this time Jaison Oliver meets criteria for Visit Diagnoses: Problem List Items Addressed This Visit Other Opioid use disorder Persistent depressive disorder with anxious distress, currently moderate Patient ready to address current needs already engaged in services Strengths include willing to seek help PLAN: 1. Follow up with [facility] [place]: Not recommended for follow-up 2. Patient goal is to improve mental health and become sober 3. Behavioral Recommendations a. Re connect with [employer] b. Keeping MH services c. Participate in [...] organization. Date Type Department Care Team Description 05/24/2024 9:45 AM EST Office Visit [facility] [address] [place] [address] Pramod Whitten MD Preop examination (Primary Dx) 05/24/2024 Travel 05/23/2024 Refill [facility] [address] [place] [address] Kary Earl RN Uncomplicated opioid use 05/20/2024 10:00 AM EST Clinical Support [address] [address] Kary Earl RN Uncomplicated opioid use (Primary Dx) 05/20/2024 Patient Outreach [address] [address] Jorge Alberto Lora Recovery Supports 05/20/[address] [address] Kary Earl RN Uncomplicated opioid use 05/20/2024 Patient Outreach [address] [address] Farrukh Puente Recovery Supports 05/20/2024 Travel 05/13/2024 10:00 AM EST Clinical Support [address] [address] Kary Earl RN Uncomplicated opioid use (Primary Dx); Tobacco use disorder 05/13/2024 Travel 05/13/[address] [address] Rika Schmidt NP Surgery Clearance 05/12/[address] [address] Kirsten Bee MA 05/10/[address] [address] Robert Jackson MA chartprep 05/06/2024 9:45 AM EST Office Visit [address] [address] Deni Mejia MD Uncomplicated opioid use (Primary Dx); Tobacco use disorder 05/06/[address] [address] Kary Earl RN Uncomplicated opioid use 05/06/[address] [address] Kary Earl RN Uncomplicated opioid use 05/06/2024 Patient Outreach [address] [address] Jorge Alberto Lora Recovery Supports 05/06/2024 Refill [facility] [address] [place] [address] Deni Mejia MD Tobacco use disorder 05/06/2024 Travel 05/06/[address] [address] Rika Schmidt NP Med Refill 04/29/2024 9:30 AM EST Clinical Support [address] [address] Kary Earl RN Uncomplicated opioid use (Primary Dx) 04/29/2024 Refill [facility] [address] [place] [address] Kary Earl RN Uncomplicated opioid use 04/29/[address] [address] Kary Earl RN 04/29/2024 Travel 04/27/[address] [address] Rika Schmidt NP Care Coordination (CP Care Plan) 04/26/[address] [address] Kenna Lemus RN Error (VOID this visit) 04/22/2024 10:15 AM EST Office Visit [address] [address] Deni Mejia MD Uncomplicated opioid use (Primary Dx); Tobacco use disorder; Opioid use disorder 04/22/2024 Refill [facility] [address] [place] [address] Kary Earl RN Uncomplicated opioid use 04/22/2024 Travel 04/15/2024 9:30 AM EST Office Visit [address] [address] Deni Mejia MD Uncomplicated opioid use (Primary Dx); Tobacco use disorder; Opioid use disorder; Encounter for immunization 04/15/2024 Patient Outreach [facility] [address] [place] [address] Yogesh Olson Recovery Supports 04/15/2024 Refill [facility] [address] [place] [address] Deni Mejia MD Opioid use disorder 04/15/[address] [address] Irma Hoffman RN Opioid use disorder 04/15/2024 Travel 04/08/2024 11:00 AM EST Clinical Support [address] [address] Annamaria Martel RN Opioid type dependence, continuous (CMS/HCC) (Primary Dx) 04/08/[address] [address] Annamaria Martel RN Opioid use disorder 04/08/2024 Patient Outreach [address] [address] Jorge Alberto Lora Recovery Supports 04/08/2024 Travel 04/07/[address] [address] Rika Schmidt NP Med Refill 04/01/2024 11:00 AM EST Office Visit [address] [address] Deni Mejia MD Uncomplicated opioid use (Primary Dx); Tobacco use disorder 04/01/2024 Travel 03/25/2024 1:00 PM EST Office Visit [address] [address] Rika Schmidt NP Encounter to establish care (Primary Dx); Mixed hyperlipidemia; Allergic conjunctivitis of both eyes; Unilateral inguinal hernia without obstruction or gangrene, recurrence not specified 03/25/2024 10:45 AM EST Office Visit [address] [address] Deni Mejia MD Opioid type dependence, continuous (CMS/HCC) (Primary Dx); Uncomplicated opioid use; Tobacco use disorder 03/25/2024 Patient Outreach [address] [address] Jorge Alberto Lora Recovery Supports 03/25/2024 Travel 03/21/[address] [address] Robert Jackson MA chartprep 03/18/2024 11:00 AM EST Clinical Support [address] [address] Annamaria Martel RN Opioid type dependence, continuous (CMS/HCC) (Primary Dx) 03/18/2024 Travel 03/16/2024 Patient Outreach [address] [address] Rika Schmidt NP Pre-visit Planning (Pre-visit planning - mom was unable to complete PVP screening. ) 03/15/[address] [address] Leandra Harding RN 03/07/[address] [address] Rika Schmidt NP c/b requested 03/04/2024 10:00 AM EST Clinical Support [address] [address] Annamaria Martel RN Opioid type dependence, continuous (CMS/HCC) (Primary Dx); Uncomplicated opioid use 03/04/2024 Patient Outreach [address] [address] Yogesh Olson 03/04/[address] [address] Deni Mejia MD 03/04/2024 Travel 02/26/2024 10:00 AM EST Office Visit [address] [address] Deni Mejia MD Uncomplicated opioid use (Primary Dx); Tobacco use disorder; Unilateral recurrent inguinal hernia without obstruction or gangrene 02/26/2024 Travel from Last 3 Months Immunizations Name [...] with others, in a hotel, in a jail, living outside on the street, on a [...] Mass Index 27.12 05/24/2024 9:19 AM EST Plan of Treatment Upcoming Encounters Date Type Department Care Team (Late st Contact Info) Description 05/27/2024 9:45 AM EST Clinical Support [facility] [address] [place] [phone] Kary Earl, RN 06/03/2024 10:30 AM EST Clinical Support [facility] [address] [place] [address] Kary Earl, RN Health Maintenance Due Date Last Done Comments [...] Routine 05/24/2024 10:32 AM EST Preop examination POCT YAHIR-14 URINE DRUG SCREEN Routine 05/20/2024 9:57 AM EST Uncomplicated opioid use POCT YAHIR-14 URINE DRUG SCREEN Routine 05/13/2024 [...] 9:54 AM EST Uncomplicated opioid use POCT YAHIR-14 URINE DRUG SCREEN Routine 04/08/2024 11:00 AM [...] 02/26/2024 1:31 PM EST Uncomplicated opioid use PROPHYLAXIS - ADULT Routine 07/21/2022 1 0:00 AM EDT DIAGNOSTIC - DIAGNOSTIC IMAGING - INTRAORAL - COMPREHENSIVE SERIES OF RADIOGRAPHIC IMAGES Routine 05/16/2022 2:00 PM EST COMPREHENSIVE ORAL EVALUATION - NEW OR ESTABLISHED PATIENT Routine 05/16/2022 2:00 PM EST from Last 3 Months or Most Recently Relevant to Health Maintenance Results * ECG 12 lead (05/24/2024 10:32 AM EST) Narrative Pramod Whitten MD - 05/24/2024 10:32 AM EST Normal sinus rhythm HR 66 Qtc:356 Pr:175 us Pramod Lora MD ECG ORDERABLES Fi nal Result * POCT YAHIR-14 Urine Drug Screen (05/20/2024 9:57 AM EST) Only the most recent of12 [...] obtained by clean catch procedure / Unknown 05/20/2024 9:57 AM EST us Deni Mejia MD POINT OF CARE TEST ENTER/EDIT ORDERABLES Final Result * Chlamydia/N. Gonorrhoeae RNA, TMA, Urogenitial (04/01/2024 10:50 AM EST) CT PCR NOT DETECTED Not Detect. [facility] Comment:A not detected test result does [...] psychologicalconsequences. NG PCR NOT DETECTED Not Detect. [facility] Comment:A not detected test result does [...] AM EST 04/01/2024 11:56 AM EST Narrative [facility] - 04/01/2024 1:52 PM EST Urine Deni Mejia MD LAB MICROBIOLOGY - GENERAL ORD ERABLES Final Result Performing Organization Address City/[facility] Co de Phone Number [facility] [address] [place] [address] [phone] * Lipid Panel, Standard (04/01/2024 10:50 AM EST) Triglycerides 58 <150 mg/dL [facility] Comment:Desirable Triglyceri de: less than 150 mg/dLBorderline High Triglyceride 150-199 mg/dLHigh Triglyceride: 200-499 mg/dLVery High Triglyceride: greater than or equal to 5OO mg/dL Cholesterol 160 <200 mg/dL [facility] Comment:Desirable Cholestero l: less than 200 mg/dLBorderline High Cholesterol: 200-239 mg/dLHigh Cholesterol: greater than 239 mg/dL LDL Cholesterol Calculated 92 <100 mg/dL [facility] Comment:Desirable LDL: less than 100 mg/dLNear Optimal/Above Optimal LDL: 110- 129 mg/dLBorderline High LDL: 130-159 mg/dLHigh LDL: 160-189 mg/dLVery High LDL: greater than or equal to 190 mg/dL HDL Cholesterol 57 >40 mg/dL [facility] Comment:Desirable HDL: great er than 40 mg/dL Note: This HDL assay may give artificially low results in patients with liver disease. Blood Venous blood specimen / Unknown 04/01/2024 10:50 AM EST 04/01/2024 11:32 AM EST Rika Schmidt NP LAB BLOOD ORDERABLES Final Resu lt [facility] [address] [place] [phone] * T-SPOT??.TB (03/18/2024 11:18 AM EST) T Spot TB NEGATIVE [facility] Comment:A negative test resu lt does [...] as aquantitative test. TS PANEL A 1 [facility] TS PANEL B 0 [facility] Negative Control [facility] Positive Control [facility] Comment:For additional infor dave, please refer [email or web address].GCI Com/faq/KBN265(This link is being provided for informational/educational purposes only.)Tests performed at: [facility], [address] [address], [place] [address] 03/18/2024 11:1 8 AM EST 03/18/2024 12:55 PM EST us Deni Mejia MD LAB BLOOD ORDERABLES Final Res ult Performing Organization Address [facility]/ZIP Co de Phone Number [facility] [address] [place] [phone] * Creatinine, Serum (03/18/2024 11:18 AM EST) Creatinine, Serum 1.06 0.5 - 1.4 mg/dL [facility] Estimated Glomerular Filt Rate >60 [facility] Comment:Chronic Kidney Disea se: Estimated GFR < 60 mL/min/[id number] Kidney Disease: Estimated GFR < 15 mL/min/1.73m2 Blood 03/18/2024 11:1 8 AM EST 03/18/2024 12:55 PM EST us Deni Mejia MD LAB BLOOD ORDERABLES Final Res ult [facility] [address] [place] [phone] * (ABNORMAL) CBC auto differential (03/18/2024 11:18 AM EST) White Blood Count 4.8 4.8 - 10.8 X10*3/uL [facility] Red Blood Count 5.17 4.60 - 5.80 X10*6/uL [facility] Hemoglobin 15.7 14.0 - 18.0 g/dl [facility] Hematocrit 45.2 42.0 - 52.0 % [facility] Mean Corpuscular Volume 87.4 80.0 - 98.0 fL [facility] Mean Corpuscular Hemoglobin 30.4 27.0 - 33.0 pg [facility] Mean Corpuscular HGB Conc 34.7 31.0 - 36.0 g/dl [facility] Red Cell Distribution Width 13.3 11.0 - 16.0 % [facility] Platelet Count 178 160 - 400 X10*3/uL [facility] Mean Platelet Volume 11.3 9.4 - 12.4 fL [facility] Neutrophils Percent Auto 47.1 45 - 73 % [facility] Imm Gran Pct Auto 0.4 0.0 - 0.4 % [facility] Lymphocytes Percent Auto 40.6(H) 20 - 40 % [facility] Monocytes Percent Auto 9.4 2 - 11 % [facility] Eosinophils Percent Auto 2.1 0 - 4 % [facility] Basophils Percent Auto 0.4 0 - 2 % [facility] NRBC Pct Auto 0.0 0.0 - 0.2 /100WBC [facility] Neutrophils Absolute Auto 2.3 2.0 - 8.3 x10*3/uL [facility] Imm Gran Abs Auto 0.02 0.00 - 0.03 X10*3/uL [facility] Lymphocytes Absolute Auto 2.0 1.2 - 4.9 X10*3/uL [facility] Monocytes Absolute Auto 0.5 0.1 - 1.2 X10*3/uL [facility] Eosinophils Absolute Auto 0.1 0.0 - 0.4 X10*3/uL [facility] Basophils Absolute Auto 0.0 0.0 - 0.2 X10*3/uL [facility] NRBC Abs Auto 0.000 0.0 - 0.012 X10*3/uL [facility] Blood Venous blood specimen / Unknown 03/18/2024 11:18 AM EST 03/18/2024 12:55 PM EST us Deni Mejia MD LAB BLOOD ORDERABLES Final Res ult Performing Organization Address [facility] Co de Phone Number [facility] [address] [place] [phone] * Hepatitis C Antibody with Reflex to HCV, RNA, Quantitative, Real-Time PCR (03/18/2024 11:18 AM EST) Hepatitis C Antibody Nonreactive Nonreactive [facility] Comment:Antibodies to HCV no t detected; does not exclude early acuteHCV infection. Blood Venous blood specimen / Unknown 03/18/2024 11:18 AM EST 03/18/2024 12:55 PM EST us Deni Mejia MD LAB BLOOD ORDERABLES Final Res ult [facility] [address] [place] [phone] * Hepatitis A Antibody, Total (03/18/2024 11:18 AM EST) Hepatitis A Antibody IgG Nonreactive Nonreactive [facility] Blood Venous blood specimen / Unknown 03/18/2024 11:18 AM EST 03/18/2024 12:55 PM EST us Deni Mejia MD LAB BLOOD ORDERABLES Final Res ult Performing Organization Address [facility] Co de Phone Number [facility] [address] [place] [phone] * Hepatitis B surface antigen, EIA (03/18/2024 11:18 AM EST) Hepatitis B Surface Ag Negative Negative [facility] Blood Venous blood specimen / Unknown 03/18/2024 11:18 AM EST 03/18/2024 12:55 PM EST us Deni Mejia MD LAB BLOOD ORDERABLES Final Res ult Performing Organization Address [facility] Co de Phone Number [facility] [address] [place] [phone] * Hepatitis B Core Antibody, Total (03/18/2024 11:18 AM EST) Hepatitis B Core Antibody Nonreactive Nonreactive [facility] Blood Venous blood specimen / Unknown 03/18/2024 11:18 AM EST 03/18/2024 12:55 PM EST us Deni Mejia MD LAB BLOOD ORDERABLES Final Res ult Performing Organization Address [facility] Co de Phone Number [facility] [address] [place] [phone] * RPR (Monitor) with Reflex to??Titer (03/18/2024 11:18 AM EST) RPR (Monitor) w/Refl Titer NON-REACTI VE NON-REACT SARA [facility] Comment:THIS TEST WAS PERFOR MED AT:[employer] [place] [phone] ARAUJO MD Rapid Plasma Reagin Ab Titer TNP [facility] Blood Venous blood specimen / Unknown 03/18/2024 11:18 AM EST 03/18/2024 12:55 PM EST Deni Mejia MD LAB BLOOD ORDERABLES Final Res ult Performing Organization Address [facility] Co de Phone Number [facility] [address] [place] [phone] * HIV-1/2 Antigen and Antibodies, Fourth Generation, with Reflexes (03/18/2024 11:18 AM EST) HIV AB/AG Nonreactive Nonreactive [facility] Comment:HIV-1 p24 Ag and/or HIV-1/HIV-2 Ab not detected.A test result that is nonreactive does not exclude thepossibility of exposure to or infection with HIV-1 and/orHIV-2. Nonreactive results in this assay for individualswith prior exposure to HIV-1 and/or HIV-2 may be due toantigen and antibody levels that are below the limit ofdetection of this assay.The [employer] HIV Ag/Ab Combo assay result andsupplemental assay results should be interpreted inconjunction with the patient's clinical presentation,history and other laboratory results. If the results areinconsistent with clinical evidence, additional testing issuggested to confirm the result. Blood Venous blood specimen / Unknown 03/18/2024 11:18 AM EST 03/18/2024 12:55 PM EST Deni Mejia MD LAB BLOOD ORDERABLES Final Res ult Performing Organization Address City/[facility]/ZIP Co de Phone Number [facility] [address] [place] [phone] * Hepatitis B Surface Antibody, Qualitative (03/18/2024 11:18 AM EST) Pathologist [facility] ~Hepatitis B Surface Antibody REACTIVE Nonreactive [facility] Comment:REACTIVE: > 11.99 mI U/mL Blood Venous blood specimen / Unknown 03/18/2024 11:18 AM EST 03/18/2024 12:55 PM EST us Deni Mejia MD LAB BLOOD ORDERABLES Final Res ult Performing Organization Address [facility]/ZIP Co de Phone Number [facility] [address] [place] [phone] * BUN (Blood Urea Nitrogen) (03/18/2024 11:18 AM EST) Pathologist [facility] Urea Nitrogen (BUN) 12 9 - 16 mg/dL [facility] Blood Venous blood specimen / Unknown 03/18/2024 11:18 AM EST 03/18/2024 12:55 PM EST us Deni Mejia MD LAB BLOOD ORDERABLES Final Res ult Performing Organization Address City/[facility]/ZIP Co de Phone Number [facility] [address] [place] [phone] * Hepatic Function Panel (03/18/2024 11:18 AM EST) Pathologist [facility] Bilirubin, Total 0.5 0.0 - 1.0 mg/dL [facility] Bilirubin, Direct 0.2 0.0 - 0.5 mg/dL [facility] Aspartate Amino Transferase 28 5 - 37 U/L [facility] Alanine Aminotransferase 25 0 - 40 U/L [facility] Total Protein 7.3 6.5 - 8.0 g/dL [facility] Albumin Level 4.4 3.5 - 5.0 g/dL [facility] Alkaline Phosphatase 69 39 - 117 U/L [facility] Blood Venous blood specimen / Unknown 03/18/2024 11:18 AM EST 03/18/2024 12:55 PM EST us Deni Mejia MD LAB BLOOD ORDERABLES Final Res ult [facility] [address] [place] [phone] from Last 3 Months Insurance C3 [facility] MEDICAID STAND ADULT Care Teams Building Cleaner Relationship Specialty Start Date End Date Rika Schmidt NP [address] [place] [address] PCP - General Family Medicine 01/15/23 John Solis Metal Door AssemblerStaffing Administrator 04/27/24
--- OUTSIDE RECORDS SUMMARY | 2024-05-25 11:03 | XMS_ITS | Encounter Summary ---
Author Organization [employer] Address [address] [facility] 7t [place] [address] Care Team Providers Care Animation Director Name Role Phone Rika Schmidt NP Primary Care Provider [phone] Reason for Visit * Reason Onset Date Comments Surgery Clearance 05/13/2024 Encounter Details Date Type Department Care Team ([facility] st Contact Info) Description 05/13/[address] [facility] MEDICINE [address] [place] [address] Rika Schmidt NP [address] [place] [address] Surgery Clearance Social History Tobacco Use Types [...] Telephone Encounter - Kenna Lemus RN - 05/18/2024 8:[address] [facility] to get information regarding surgical clearance. Details below: Surgery Date: 06/09/24 Surgical Procedure: Hernia Repair Surgeon's Name: Dr. Jostin Chiu Type of Anesthesia: MAC Surgeon's Office: Phone #: [phone], Fax #: [phone], Staff spoke with: Fermin Labs Needed: Labs ordered at the discretion of the provider. Not requesting specific labs, it is upto the provider on what he or she wants to order in order to clear pt. EKG requested: Yes Last surgeon office note requested: Yes, [facility] fax number [phone] provided. TC placed to [facility] Rosa to find a pre op appointment for pt. Rosa put a hold on 05/24/24 at 9:45at [facility] with . TC placed to pt via S site interpreter (Fermin ID#[id number]) to book pre op. Pt agrees to appointment on 05/24/24 at 9:45 at [facility] with . Pt denies any questions or concerns at this time. Message forwarded to provider to review and advise. * Telephone Encounter - Kenna Lemus RN - 05/13/2024 10:[address] [facility] to get information regarding surgical clearance. Informed [...] of Anesthesia: MAC Surgeon's Office: Phone #: [phone], Fax #: [phone], Staff spoke with: Fermin Labs Needed: Not requesting specific labs, it is up to the provider on what he or she wants to order in order to clear pt EKG requested: Yes Last surgeon office note requested: Yes, [facility] fax number [phone] provided. Message re-tasked to 05/16/24 for RN to call Fermin to determine surgical procedure date. * Telephone Encounter - Iker Lubin - 05/13/2024 9:01 AM EST Tc from Fermin from [facility] Surgery requesting a Clearance for pt for Hernia repair Surgery. Fax Number : [phone] Contact : [phone] documented in this encounter Plan of Treatment Upcoming Encounters Date Type Department Care Team (Late st Contact Info) Description 05/27/2024 9:45 AM EST Clinical Support [address] [address] Kary Earl, RN 06/03/2024 10:30 AM EST Clinical Support [address] [address] Kary Earl, RN documented as of this encounter Visit Diagnoses Not on filedocumented in this encounter Additional Health Concerns Assessment Noted Time PHQ-9 Depression Total Score: 0 01/29/20 24 10:30 AM EDT documented as of this encounter Care Teams Animation Director Relationship Specialty Start Date End Date Rika Schmidt NP [address] [place] [address] PCP - General Family Medicine 01/15/23 John Solis Sports DirectorStraight Line Press Setter 04/27/24 documented as of this encounter
--- OUTSIDE RECORDS SUMMARY | 2024-05-25 11:03 | XMS_ITS | Encounter Summary ---
Author Organization [employer] [facility] Address [address] [place] [address] 7t [place] [address] Care Team Providers Care Cyber Intel Planner Name Role Phone Bessie Norris Primary Care Provider [phone] Rika Schmidt NP Primary Care Provider [phone] Encounter Details Date Type Department Care Team (Latest Contact Info) Description 09/27/[address] [facility] CONVERSIONS Dental, Provider, DDS Social History Tobacco [...] Care Team ( st Contact Info) Description 05/27/2024 9:45 AM EST Clinical Support [address] [address] Kary Earl, RN 06/03/2024 10:30 AM EST Clinical Support [address] [address] Kary Earl, RN documented as of this encounter Visit Diagnoses Not on filedocumented in this encounter Care Teams Cyber Intel Planner Relationship Specialty Start Date End Date Bessie Norris FNP PCP - General Family Medicine 08/12/22 01/14/23 Rika Schmidt NP [address] [place] [address] PCP - General Family Medicine 01/15/23 John Solis Coating MixerRecreation Therapist 04/27/24 documented as of this encounter
--- OUTSIDE RECORDS SUMMARY | 2024-05-25 11:04 | XMS_ITS | Encounter Summary ---
Author Organization [employer] Address [address] 7t [place] [address] Care Team Providers Care Concrete Mason Name Role Phone Rika Schmidt IGNACIA Primary Care Provider [phone] Reason for Visit * Reason Comments OBAT Encounter Details Date Type Department Care Team (Latest Contact Info) Description 05/20/2024 10:00 AM EST Clinical Support [facility] MEDICINE [address] [place] [address] Kary Earl RN Uncomplicated opioid use (Primary [...] Progress Notes * Kary Earl RN - 05/20/2024 10:00 AM EST Patient ID: Patient here today for Opioid Dependence RV. Patient on Sublocade dose of 100 mg monthly - last received 03/04/24. Suboxone 8/2 mg Rx 04/08/24. Weekly appointments. MD intake 02/02/24. LFTs: ordered, pt advised to go to lab 02/12/24. Patient actively enrolled in behavioral health services, at [facility]. BUSHRA ARMENDARIZ reviewed by provider. Last PCP appt: scheduled with Andreina Schmidt NP 03/25/24 Smoking status: 5 cigs/day 02/02/24 pre-contemplation. PrEP: declined 02/02/24 Last visit: 05/13/2024 UTOX: bup Jaison said that it [...] he wants to come to us weekly. THIS VISIT: 05/20/2024 UTOX: hever Blackwood said he is happy and that he is doing really good. He he has a girlfriend. He said during clinic that his dose was good. However, he had been given a two-week script and he thought it was for one week, so he had two daily. He said he will go back to one daily and was told to contact us if there is difficulty with that. We wrote a new script and asked the pharmacy to try to get an override. If that becomes impossible, told pharmacy we will use our funding. He said that he is taking medication to resolve his constipation and it is working. Otherwise, he reports no medical issues except for a hernia, which will be removed on . Mentally, he said he feels stable and is attending groups where he lives. He also received a schedule of our groups and he said he is interested in attending some of them. Plan: We will continue with 11/12 daily and he will meet us on a weekly schedule. This information has been disclosed to you [...] Description 05/27/2024 9:45 AM EST Clinical Support [address] [address] Kary Earl RN 06/03/2024 10:30 AM EST Clinical Support [address] [address] Rajat, Kary, RN documented as of this encounter Procedures Procedure Name Priority Date/Time Associated Diagnosis Comments POCT YAHIR-14 URINE DRUG SCREEN Routine 05/20/2024 9:57 AM EST Uncomplicated opioid use documented in this encounter Results * POCT YAHIR-14 Urine Drug Screen (05/20/2024 9:57 AM EST) THC Negative Cocaine Screen, Urine [...] procedure / Unknown 05/20/2024 9:57 AM EST Deni Mejia MD POINT OF CARE TEST ENTER/EDIT ORDERABLES Final Result documented in this encounter Visit Diagnoses Diagnosis Uncomplicated opioid use- Primary documented in this encounter Additional Health Concerns Assessment Noted Time PHQ-9 Depression Total Score: 0 01/29/20 24 10:30 AM EDT documented as of this encounter Care Teams Concrete Mason Relationship Specialty Start Date End Date Rika Schmidt NP [address] [place] [address] PCP - General Family Medicine 01/15/23 John Solis Group DirectorFirst Breaker Feeder 04/27/24 documented as of this encounter
--- OUTSIDE RECORDS SUMMARY | 2024-05-25 11:04 | XMS_ITS | Encounter Summary ---
Author Organization [employer] Address [address] [facility] [address] 7t [place] [address] Care Team Providers Care Aircraft Pneudraulics Repairer Name Role Phone Rika Schmidt IGNACIA Primary Care Provider [phone] Reason for Visit * Reason Onset Date Comments Med Refill 04/22/2024 Encounter Details Date Type Department Care Team ([facility] st Contact Info) Description 04/22/2024 Refill [facility] MEDICINE 230 [place] [address] Kary Earl RN Uncomplicated opioid use Social [...] Description 05/27/2024 9:45 AM EST Clinical Support [address] [address] Kary Earl, RN 06/03/2024 10:30 AM EST Clinical Support [address] [address] Kary Earl, RN documented as of this encounter Visit Diagnoses Diagnosis Uncomplicated opioid use documented in this encounter Additional Health Concerns Assessment Noted Time PHQ-9 Depression Total Score: 0 01/29/20 24 10:30 AM EDT documented as of this encounter Care Teams Aircraft Pneudraulics Repairer Relationship Specialty Start Date End Date Rika Schmidt NP [address] [place] [address] PCP - General Family Medicine 01/15/23 documented as of this encounter
--- OUTSIDE RECORDS SUMMARY | 2024-05-25 11:04 | XMS_ITS | Encounter Summary ---
Author Organization [employer] Address [address] [facility] [facility] [address] 7t [place] [address] Care Team Providers Care Repairer Art Objects Name Role Phone Rika Schmidt IGNACIA Primary Care Provider [phone] Reason for Visit * Reason Onset Date Comments Med Refill 05/23/2024 Encounter Details Date Type Department Care Team ([facility] st Contact Info) Description 05/23/2024 Refill [facility] MEDICINE 230 [place] [address] Kary Earl RN Uncomplicated opioid use Social [...] Description 05/27/2024 9:45 AM EST Clinical Support [address] [address] Kary Earl, RN 06/03/2024 10:30 AM EST Clinical Support [address] [address] Kary Earl, RN documented as of this encounter Visit Diagnoses Diagnosis Uncomplicated opioid use documented in this encounter Additional Health Concerns Assessment Noted Time PHQ-9 Depression Total Score: 0 01/29/20 24 10:30 AM EDT documented as of this encounter Care Teams Repairer Art Objects Relationship Specialty Start Date End Date Rika Schmidt NP [address] [place] [address] PCP - General Family Medicine 01/15/23 John Solis Palliative Medicine PhysicianFocus Puller 04/27/24 documented as of this encounter
--- OUTSIDE RECORDS SUMMARY | 2024-05-25 11:04 | XMS_ITS | Encounter Summary ---
Author Organization [employer] Address [address] [facility] 7t [place] [address] Care Team Providers Care Gaming Cage Cashier Name Role Phone Rika Schmidt STATISTICAL MODELER Primary Care Provider [phone] Encounter Details Date Type Department Care Team (Latest Contact Info) Description 05/20/2024 Travel Social History Tobacco Use Types Packs/Day [...] Description 05/27/2024 9:45 AM EST Clinical Support [address] [address] Kary Ealr, RN 06/03/2024 10:30 AM EST Clinical Support [address] [address] Kary Earl, RN documented as of this encounter Visit Diagnoses Not on filedocumented in this encounter Additional Health Concerns Assessment Noted Time PHQ-9 Depression Total Score: 0 01/29/20 24 10:30 AM EDT documented as of this encounter Care Teams Gaming Cage Cashier Relationship Specialty Start Date End Date Rika Schmidt NP [address] [place] [address] PCP - General Family Medicine 01/15/23 John Solis Class 1 Owner OperatorCertified Professional Coder 04/27/24 documented as of this encounter
--- OUTSIDE RECORDS SUMMARY | 2024-05-25 11:04 | XMS_ITS | Encounter Summary ---
Author Organization [employer] Address [address] [facility] 7t [place] [address] Care Team Providers Care Shredded Filler Cigar Maker Machine Name Role Phone Rika Scmhidt IGNACIA Primary Care Provider [phone] Reason for Visit * Reason Comments ROSE Recovery Supports Encounter Details Date Type Department Care Team (Late st Contact Info) Description 05/20/2024 Patient Outreach [facility] MEDICINE 230 [place] [address] Farrukh Puente Recovery Supports Social History Tobacco Use Types [...] as of this encounter Progress Notes * Farrukh Puente - 05/20/2024 10:02 AM EST I met with Jaison today. Setting: in person at [facility] Recovery Wellness Goals worked on: Physical Health/Mental Health Action taken/next steps: Offered person centered recovery support Additional comments: Participant arrive to the clinic this morning to connected with doctor for a follow , he also connected with the control and recovery special tactics hector touch basis pertaining to his journey in recovery he stated that hedoing well in his recovery. assistant wrestling coach implemented services and resources have in place for people who are in recovery Farrukh Puente documented in this encounter Plan of Treatment Upcoming Encounters Date Type Department Care Team (Late st Contact Info) Description 05/27/2024 9:45 AM EST Clinical Support [facility] MEDICINE [address] [place] [address] Kary Earl, RN 06/03/2024 10:30 AM EST Clinical Support [facility] MEDICINE [address] [place] [address] Kary Earl, RN documented as of this encounter Visit Diagnoses Not on filedocumented in this encounter Additional Health Concerns Assessment Noted Time PHQ-9 Depression Total Score: 0 01/29/20 24 10:30 AM EDT documented as of this encounter Care Teams Shredded Filler Cigar Maker Machine Relationship Specialty Start Date End Date Rika Schmidt NP 230 [place] [address] PCP - General Family Medicine 01/15/23 John Solis Job CoachingSupervisor Engraving 04/27/24 documented as of this encounter
--- OUTSIDE RECORDS SUMMARY | 2024-05-25 11:04 | XMS_ITS | Encounter Summary ---
Author Organization [employer] Address [address] [facility] [address] 7t [place] [address] Care Team Providers Care Circuit Clerk Name Role Phone Rika Schmidt IGNACIA Primary Care Provider [phone] Reason for Visit * Reason Onset Date Comments Med Refill 05/20/2024 Encounter Details Date Type Department Care Team ([facility] st Contact Info) Description 05/20/2024 Refill [facility] MEDICINE 230 [place] [address] Kary Earl RN Uncomplicated opioid use Social [...] with others, in a hotel, in a penitentiary, living outside on the street, on a [...] Description 05/27/2024 9:45 AM EST Clinical Support [address] [address] Kary Earl, RN 06/03/2024 10:30 AM EST Clinical Support [address] [address] Kary Earl, RN documented as of this encounter Visit Diagnoses Diagnosis Uncomplicated opioid use documented in this encounter Additional Health Concerns Assessment Noted Time PHQ-9 Depression Total Score: 0 01/29/20 24 10:30 AM EDT documented as of this encounter Care Teams Circuit Clerk Relationship Specialty Start Date End Date Rika Schmidt NP [address] [place] [address] PCP - General Family Medicine 01/15/23 John Solis Mortgage Loan FunderNeon Light Installer 04/27/24 documented as of this encounter
--- OUTSIDE RECORDS SUMMARY | 2024-05-25 11:04 | XMS_ITS | Encounter Summary ---
Author Organization [employer] Address [address] [facility] [address] 7t [place] [address] Care Team Providers Care Flame Hardening Machine Setter Name Role Phone Rika Schmidt IGNACIA Primary Care Provider [phone] Reason for Visit * Reason Onset Date Comments Med Refill 05/06/2024 Encounter Details Date Type Department Care Team ([facility] st Contact Info) Description 05/06/2024 Refill [facility] MEDICINE 230 [place] [address] Kary Earl RN Uncomplicated opioid use Social [...] Description 05/27/2024 9:45 AM EST Clinical Support [address] [address] Kary Earl, RN 06/03/2024 10:30 AM EST Clinical Support [address] [address] Kary Earl, RN documented as of this encounter Visit Diagnoses Diagnosis Uncomplicated opioid use documented in this encounter Additional Health Concerns Assessment Noted Time PHQ-9 Depression Total Score: 0 01/29/20 24 10:30 AM EDT documented as of this encounter Care Teams Flame Hardening Machine Setter Relationship Specialty Start Date End Date Rika Schmidt NP [address] [place] [address] PCP - General Family Medicine 01/15/23 John Solis Lead Injection Mold TechnicianCompliance Aide 04/27/24 documented as of this encounter
--- OUTSIDE RECORDS SUMMARY | 2024-05-25 11:04 | XMS_ITS | Encounter Summary ---
Author Organization [employer] Address [address] [facility] [address] 7t [place] [address] Care Team Providers Care Guard Immigration Name Role Phone Rika Schmidt IGNACIA Primary Care Provider [phone] Encounter Details Date Type Department Care Team ([facility] st Contact Info) Description 05/12/2024 Telephone [facility] MEDICINE 230 [place] [address] Kirsten Bee MA Social History Tobacco Use [...] Description 05/27/2024 9:45 AM EST Clinical Support [address] [address] Kary Earl, RN 06/03/2024 10:30 AM EST Clinical Support [facility] MEDICINE [address] [place] [address] Kary Earl, RN documented as of this encounter Visit Diagnoses Not on filedocumented in this encounter Additional Health Concerns Assessment Noted Time PHQ-9 Depression Total Score: 0 01/29/20 24 10:30 AM EDT documented as of this encounter Care Teams Guard Immigration Relationship Specialty Start Date End Date Rika Schmidt NP 230 [place] [address] PCP - General Family Medicine 01/15/23 John Solis Life Care PlannerMeat Cutter Apprentice 04/27/24 documented as of this encounter
--- OUTSIDE RECORDS SUMMARY | 2024-05-25 11:04 | XMS_ITS | Encounter Summary ---
Author Organization [employer] Address [address] [facility] 7t [place] [address] Care Team Providers Care Ton Container Filler Name Role Phone Rika Schmidt IGNACIA Primary Care Provider [phone] Reason for Visit * Reason Onset Date Comments Error (VOID this visit) 04/26/2024 Encounter Details Date Type Department Care Team ([facility] Contact Info) Description 04/26/2024 Telephone [facility] MEDICINE 230 [place] [address] Kenna Lemus RN Error (VOID this visit) [...] Description 05/27/2024 9:45 AM EST Clinical Support [address] [address] Kary Earl, RN 06/03/2024 10:30 AM EST Clinical Support [address] [address] Kary Earl, RN documented as of this encounter Visit Diagnoses Not on filedocumented in this encounter Additional Health Concerns Assessment Noted Time PHQ-9 Depression Total Score: 0 01/29/20 24 10:30 AM EDT documented as of this encounter Care Teams Ton Container Filler Relationship Specialty Start Date End Date Rika Schmidt NP 230 [place] [address] PCP - General Family Medicine 01/15/23 documented as of this encounter
--- OUTSIDE RECORDS SUMMARY | 2024-05-25 11:04 | XMS_ITS | Encounter Summary ---
Author Organization [employer] Address [address] [facility] [address] 7t [place] [address] Care Team Providers Care Director Occupational Name Role Phone Rika Schmidt IGNACIA Primary Care Provider [phone] Reason for Visit * Reason Onset Date Comments chartprep 05/10/2024 Encounter Details Date Type Department Care Team ([facility] Contact Info) Description 05/10/2024 Telephone [facility] MEDICINE 230 [place] [address] Robert Jackson MA chartprep Social History Tobacco [...] Description 05/27/2024 9:45 AM EST Clinical Support [facility] MEDICINE [address] [place] [address] Kary Earl, RN 06/03/2024 10:30 AM EST Clinical Support [facility] MEDICINE [address] [place] [address] Kary Earl, RN documented as of this encounter Visit Diagnoses Not on filedocumented in this encounter Additional Health Concerns Assessment Noted Time PHQ-9 Depression Total Score: 0 01/29/20 24 10:30 AM EDT documented as of this encounter Care Teams Director Occupational Relationship Specialty Start Date End Date Rika Schmidt NP 230 [place] [address] PCP - General Family Medicine 01/15/23 John Solis Showplace ManagerTake Out Waiter/Waitress 04/27/24 documented as of this encounter
--- OUTSIDE RECORDS SUMMARY | 2024-05-25 11:04 | XMS_ITS | Encounter Summary ---
Author Organization [employer] Address [address] [facility] [address] 7[address] [place] [address] Care Team Providers Care Cop Breaker Name Role Phone Rika Schmidt IGNACIA Primary Care Provider [phone] Reason for Visit * Reason Comments [facility] Recovery Supports Encounter Details Date Type Department Care Team ([facility] st Contact Info) Description 05/20/2024 Patient Outreach [facility] MEDICINE 230 [place] [address] Jorge Alberto Lora 230 [place] [address] Recovery Supports Social History Tobacco Use Types [...] Progress Notes * Jorge Alberto Lora - 05/20/2024 1:30 PM EST I met with Jaison today. Setting: in person at [facility] Recovery Wellness Goals worked on: Social Stability Action taken/next steps: Offered person centered recovery support, Attended alcohol and drug free activity, and Referred to sober living Additional comments: Provided information about new program called [facility] Juan Pablojuan j Jorge Alberto Lora documented in this encounter Plan of Treatment Upcoming Encounters Date Type Department Care Team (Late st Contact Info) Description 05/27/2024 9:45 AM EST Clinical Support [facility] MEDICINE [address] [place] [address] Kary Earl, RN 06/03/2024 10:30 AM EST Clinical Support [facility] MEDICINE [address] [place] [address] Kary Earl, RN documented as of this encounter Visit Diagnoses Not on filedocumented in this encounter Additional Health Concerns Assessment Noted Time PHQ-9 Depression Total Score: 0 01/29/20 24 10:30 AM EDT documented as of this encounter Care Teams Cop Breaker Relationship Specialty Start Date End Date Rika Schmidt NP [address] [place] [address] PCP - General Family Medicine 01/15/23 John Solis Pharmacovigilance ScientistCalender Roll Press Operator 04/27/24 documented as of this encounter
--- OUTSIDE RECORDS SUMMARY | 2024-05-25 11:04 | XMS_ITS | Encounter Summary ---
Author Organization [employer] Address 75 [facility] 7t [place] [address] Care Team Providers Care Exchange Underwriting Consultant Name Role Phone Rika Schmidt IGNACIA Primary Care Provider [phone] Reason for Visit * Reason Comments Med Refill Encounter Details Date Type Department Care Team ([facility] st Contact Info) Description 04/15/2024 Refill [facility] [address] [place] [address] Deni Mejia MD [address] [place] [address] Opioid use disorder Social History Tobacco Use [...] with others, in a hotel, in a half-way, living outside on the street, on a [...] AM EST TC placed to pt via [employer] television reporter (Venkat ID#[id number]) to inform of message from PCP, Please call and inform patient of stable lab result . No answer, LVM for pt to call office back and ask to speak to the blue team nurses. documented in this encounter Plan of Treatment Upcoming Encounters Date Type Department Care Team (Late st Contact Info) Description 05/27/2024 9:45 AM EST Clinical Support [facility] [address] [place] [address] Kary Earl, RN 06/03/2024 10:30 AM EST Clinical Support [facility] [address] [place] [address] Kary Earl, RN documented as of this encounter Visit Diagnoses Diagnosis Opioid use disorder documented in this encounter Additional Health Concerns Assessment Noted Time PHQ-9 Depression Total Score: 0 01/29/20 24 10:30 AM EDT documented as of this encounter Care Teams Exchange Underwriting Consultant Relationship Specialty Start Date End Date Rika Schmidt NP [address] [place] [address] PCP - General Family Medicine 01/15/23 documented as of this encounter
--- OUTSIDE RECORDS SUMMARY | 2024-05-25 11:04 | XMS_ITS | Encounter Summary ---
Author Organization [employer] Address [address] [facility] [address] [place] [address] Care Team Providers Care Windows Laptop Technician Name Role Phone Rika Schmidt IGNACIA Primary Care Provider [phone] Reason for Visit * Reason Comments OBAT F/U Encounter Details Date Type Department Care Team (Latest Contact Info) Description 04/29/2024 9:30 AM EST Clinical Support [facility]INE [address] [place] [address] Kary Earl RN Uncomplicated opioid use (Primary [...] actively enrolled in behavioral health services, at [facility]. BUSHRA ARMENDARIZ reviewed by provider. Last PCP [...] No Want to talk to N or coach tour driver? Yogesh Salmon, coach tour driver call [facility] to facilitate Jaison connecting with a coach tour driver @ [facility]. He has not yet heard. Tobacco-has not used nicotine lozenges. Forgets because all meds locked in [employer] and would need to ask. He has [...] to talk to [facility] or coach tour driver? Yogesh Salmon, coach tour driver call [facility] to facilitate Jaison connecting with a coach tour driver @ [facility]. He has not yet heard. Tobacco-has not [...] Description 05/27/2024 9:45 AM EST Clinical Support [address] [address] Kary Earl, KATIANA 06/03/2024 10:30 AM EST Clinical Support [address] [address] Kary Earl, RN documented as of this [...] documented as of this encounter Care Teams Windows Laptop Technician Relationship Specialty Start Date End Date Rika Schmidt NP [address] [place] [address] PCP - General Family Medicine 01/15/23 John Solis Residential HousekeeperMedical Historian 04/27/24 documented as of this encounter
--- OUTSIDE RECORDS SUMMARY | 2024-05-25 11:04 | XMS_ITS | Encounter Summary ---
Author Organization [employer] Address 75 [facility] [address] 7t [place] [address] Care Team Providers Care Therapist Name Role Phone Rika Schmidt IGNACIA Primary Care Provider [phone] Reason for Visit * Reason Onset Date Comments Med Refill 05/06/2024 Encounter Details Date Type Department Care Team ([facility] st Contact Info) Description 05/06/2024 Refill [facility] [address] [place] [address] Kary Earl RN Uncomplicated opioid use Social [...] 05/27/2024 9:45 AM EST Clinical Support [address] [address] Kary Earl, RN 06/03/2024 10:30 AM EST Clinical Support [address] [address] Kary Earl, RN documented as of this encounter Visit Diagnoses Diagnosis Uncomplicated opioid use documented in this encounter Additional Health Concerns Assessment Noted Time PHQ-9 Depression Total Score: 0 01/29/20 24 10:30 AM EDT documented as of this encounter Care Teams Therapist Relationship Specialty Start Date End Date Rika Schmidt NP [address] [place] [id number] PCP - General Family Medicine 01/15/23 John Solis Carton Forming Machine OperatorShift Stacker 04/27/24 documented as of this encounter
--- OUTSIDE RECORDS SUMMARY | 2024-05-25 11:04 | XMS_ITS | Encounter Summary ---
Author Organization [employer] Address 75 [facility] 7t [place] [address] Care Team Providers Care Lane Marker Installer Name Role Phone Rika Schmidt MIXING AND MOLDING MACHINE OPERATOR Primary Care Provider [phone] Encounter Details Date Type Department Care Team (Latest Contact Info) Description 05/24/2024 Travel Social History Tobacco Use Types Packs/Day [...] with others, in a hotel, in a fdc, living outside on the street, on a [...] Description 05/27/2024 9:45 AM EST Clinical Support [address] [address] Kary Earl, RN 06/03/2024 10:30 AM EST Clinical Support [address] [address] Kary Earl, RN documented as of this encounter Visit Diagnoses Not on filedocumented in this encounter Additional Health Concerns Assessment Noted Time PHQ-9 Depression Total Score: 0 01/29/20 24 10:30 AM EDT documented as of this encounter Care Teams Lane Marker Installer Relationship Specialty Start Date End Date Rika Schmidt NP [address] [place] [address] PCP - General Family Medicine 01/15/23 John Solis Ceramic Maker DemonstratorSingle Fold Machine Operator 04/27/24 documented as of this encounter
--- OUTSIDE RECORDS SUMMARY | 2024-05-25 11:04 | XMS_ITS | Encounter Summary ---
Author Organization [employer] Address 75 [facility] 7t [place] [address] Care Team Providers Care Night Shift Supervisor Name Role Phone Rika Schmidt NP Primary Care Provider [phone] Reason for Visit * Reason Onset Date Comments Care Coordination 04/27/2024 [facility] Care Plan Encounter Details Date Type Department Care Team ([facility] Contact Info) Description 04/27/2024 Telephone [facility] [address] [place] [address] Rika Schmidt NP [address] [place] [address] Care Coordination ([facility] Care Plan) Social History Tobacco [...] has received and reviewed Care Plan from [facility]: Db2 Developer: John Solis Contact Information: [phone] Care Plan scanned into patient's EHR and notification sent to PCP. documented in this encounter Plan of Treatment Upcoming Encounters Date Type Department Care Team (Late st Contact Info) Description 05/27/2024 9:45 AM EST Clinical Support [facility] [address] [place] [address] Kary Earl, RN 06/03/2024 10:30 AM EST Clinical Support [facility] [address] [place] [address] Kary Earl, RN documented as of this encounter Visit Diagnoses Not on filedocumented in this encounter Additional Health Concerns Assessment Noted Time PHQ-9 Depression Total Score: 0 01/29/20 24 10:30 AM EDT documented as of this encounter Care Teams Night Shift Supervisor Relationship Specialty Start Date End Date Rika Schmidt NP [address] [place] [address] PCP - General Family Medicine 01/15/23 John Solis Director Of Corporate StrategyTrack Equipment Operator 04/27/24 documented as of this encounter
--- OUTSIDE RECORDS SUMMARY | 2024-05-25 11:04 | XMS_ITS | Encounter Summary ---
Author Organization [employer] Address 75 [facility] 7t [place] [address] Care Team Providers Care Leather Tanner Name Role Phone Rika Schmidt TELEVISION ENGINEERING TEACHER Primary Care Provider [phone] Encounter Details Date Type Department Care Team [...] Description 05/27/2024 9:45 AM EST Clinical Support [address] [address] Kary Earl, RN 06/03/2024 10:30 AM EST Clinical Support [address] [address] Kary Earl, RN documented as of this encounter Visit Diagnoses Not on filedocumented in this encounter Additional Health Concerns Assessment Noted Time PHQ-9 Depression Total Score: 0 01/29/20 24 10:30 AM EDT documented as of this encounter Care Teams Leather Tanner Relationship Specialty Start Date End Date Rika Schmidt NP [address] [place] [address] PCP - General Family Medicine 01/15/23 John Solis Rural Health ConsultantCommunications Advisor 04/27/24 documented as of this encounter
[2024-05-26 14:30] LABS: MANUAL DIFF FLAG NO
[2024-05-26 14:54] LABS: Basophils Percent Auto 0.8 % (0-2); Eosinophils Absolute Auto 0.1 X10*3/uL (0.0-0.4); Eosinophils Percent Auto 2.3 % (0-4); Hematocrit 46.8 % (42.0-52.0); Hemoglobin 16.2 g/dl (14.0-18.0); Imm Gran Abs Auto 0.07 X10*3/uL (0.00-0.03); Imm Gran Pct Auto 1.4 % (0.0-0.4); Lymphocytes Absolute Auto 1.7 X10*3/uL (1.2-4.9); Lymphocytes Percent Auto 33.5 % (20-40); Mean Corpuscular HGB Conc 34.6 g/dl (31.0-36.0); Mean Corpuscular Hemoglobin 29.9 pg (27.0-33.0); Mean Corpuscular Volume 86.5 fL (80.0-98.0); Mean Platelet Volume 11.7 fL (9.4-12.4); Monocytes Absolute Auto 0.6 X10*3/uL (0.1-1.2); Monocytes Percent Auto 11.4 % (2-11); Neutrophils Absolute Auto 2.6 x10*3/uL (2.0-8.3); Neutrophils Percent Auto 50.6 % (45-73); Platelet Count 189 X10*3/uL (160-400); Red Blood Count 5.41 X10*6/uL (4.60-5.80); Red Cell Distribution Width 12.7 % (11.0-16.0); White Blood Count 5.2 X10*3/uL (4.8-10.8)
[2024-05-26 15:00] LABS: Anion Gap 12 (12-20); Blood Urea Nitrogen 12 mg/dL (9-16); Calcium 9.2 mg/dL (8.4-10.2); Carbon Dioxide 28 mmol/L (22-29); Chloride 107 mmol/L (96-108); Estimated Glomerular Filt Rate > 60; Glucose Random 82 mg/dL (60-115); Potassium 4.6 mmol/L (3.3-5.1); Sodium 142 mmol/L (135-145)
== END 2024-05-25 09:44 | disposition home or self-care (01) ==
LOC: HO.CHCLDS 09:43
PROVIDERS: Visit Provider Internal Medicine
DX: Z01.818 Encounter for other preprocedural examination (principal)
CPT/HCPCS: 36415; 80048; 85025

== ENCOUNTER 2024-06-09 07:48 | Day surgery (SDC) | payer MEDICAID, SELFPAY ==
[2024-06-07 08:40] VITALS: BMI 28.1
[2024-06-07 08:54] VITALS: BMI 28.1
--- NOTE | 2024-06-08 10:19 | MHC.SHP ---
Pre-Procedural Eval Section A - 24 Hr Update-Section A only Date of Service: 06/09/24 The patient is an INPATIENT: No Changes since office visit: No Cold of Flu in the past 2 weeks, No New Medical Problems, No Changes in Medication and No Patient answered all questions Section B - Complete if H&P > 30 days Chief Complaint: Unilateral inguinal hernia, with obstruction, with Allergies: Allergies Allergy/AdvReac Type Severity Reaction Status Date / Time No Known Allergies Allergy Verified 05/16/24 10:54 Review of Systems Sugical H&P ROS: Negative: Constitution, Cardiovascular, Respiratory, Neurological, Psychiatric, Hem-Onc, Allergic/Immunologic, Gastrointestinal, Genitourinary, Musculoskeletal, Integumentary, Endocrine and Eyes/Ears/Nose/Throat Exam Surgical H&P Exam: Normal: HEENT, Normal: Heart, Normal: Lungs, Normal: Extremities, Normal: Abdomen, Normal: Skin and Normal: Neurological Plan I have reviewed the history and physical and performed a pertinent physical examination on my patient. No changes have occurred unless specified. Time Spent With Patient Time: Total time managing care of this patient today ____ minutes.
[2024-06-09] VITALS (9 sets, daily range): BP systolic 105–126; BP diastolic 46–78; PULSE 48–65; RESP 16–18; TEMP 36.2–37.4; O2SAT 98–100
[2024-06-09 08:25] LABS: Amphetamine Screen Urine Not Detected (Not Detect); Barbiturates, Urine Not Detected (Not Detect); Benzodiazepines Screen Urine Not Detected (Not Detect); Buprenorphine Scr Positive (Not Detect); Cannabinoid Screen Urine Not Detected (Not Detect); Cocaine Screen Urine Not Detected (Not Detect); Fentanyl, urine Not Detected (Not Detect); Methadone Screen, Urine Not Detected (Not Detect); Opiate Screen Urine Not Detected (Not Detect); Oxycodone Screen Urine Not Detected (Not Detect); Phencyclidine Screen Urine Not Detected (Not Detect)
--- NOTE | 2024-06-09 09:00 | HO.ANESPROP2 ---
Documented by User: Angella Waggoner NP 06/08/24 12:30 HPI - Anesthesia Eval Consult details Narrative: 44yo M for Right Incarcerated Hernia Inguinal Reducible with mesh PMFSH Active Problems Active Problems: All Active Problems Incarcerated right inguinal hernia (Acute) Closed fracture of distal phalanx of right little finger (Acute) Mallet deformity of right little finger (Acute) Praveen fracture of right hand (Acute) Past Medical History Medical History Opioid dependence, in remission Depression Smoker Family History Family history of problems with anesthesia: No Surgical History Surgical History (Updated 06/07/24 @ 08:33 by Meena Dunbar RN) Hx of hand surgery History of Problems with Anesthesia: No Social History Social History Household Members Other:: is in residential drug rehab program-will have friend care for him post-op Housing: House Are you a primary aged or disabled care worker to a significant other at home: No Do you presently have visiting nurse or other home services: No Alcohol intake: never Patient Tobacco Use Status: Current everyday Tobacco user Tobacco use type: Cigarette Cigarette Packs Per Day: 1 Cigarettes Per Day: 10 Years Smoked: 28 Substance Use Type: Marijuana Substance Use Type Other:: last used 09/2023-is in treatment program Have you been hit, kicked, punched, or otherwise hurt by someone within the past year? If so, by whom?: No Spiritual Healthcare Practices: none Sabianism Healthcare Practices: Pentecostal Cultural Healthcare Practices: none Are you DNR?: No Advance Directives: No (mother is listed as primary contact) Advance Directives Information Provided: Yes Advance Directives on File: No Recently lost weight without trying: No Eating poorly because of decreased appetite: No Nutrition Risks: No Nutritional Risk Poor oral hygiene: No Meds Allergies Allergy/AdvReac Type Severity Reaction Status Date / Time No Known Allergies Allergy Verified 05/16/24 10:54 Home Medications ?Medication ?Instructions ?Recorded ?Confirmed ?Last Taken ?Type clonidine HCl 0.1 mg tablet 0.1 mg PO QAM 05/16/24 06/07/24 Unknown History trazodone 100 mg tablet 100 mg PO BEDTIME 05/16/24 06/07/24 Unknown History buprenorphine 8 mg-naloxone 2 mg 1 film sublingual DAILY 06/09/24 06/09/2425 History sublingual film (Suboxone) Exam Height,Weight and Vital Signs: Height 5 ft 6 in Weight 78.925 kg Pertinent Lab Results Pertinent Lab Results: Laboratory Tests 05/25/24 09:46 WBC 5.2 Hgb 16.2 Hct 46.8 Plt Count 189 Sodium 142 Potassium 4.6 Chloride 107 Carbon Dioxide 28 BUN 12 Creatinine 1.15 Assessment and Plan Assessment Anesthesia Assessment: Chart Reviewed Final Anesthetic Review Family History of Problems with Anesthesia: No History of Problems with Anesthesia: No Documented by User: Betty Ta DO 06/09/24 09:19 HPI - Anesthesia Eval Consult details Narrative: 44yo M for Right Incarcerated Hernia Inguinal Reducible with mesh On Suboxone PMFSH Past Medical History Medical History Opioid dependence, in remission Depression Smoker Family History Family history of problems with anesthesia: No Surgical History Surgical History (Updated 06/07/24 @ 08:33 by Meena Dunbar RN) Hx of hand surgery History of Problems with Anesthesia: No Social History Social History Household Members Other:: is in residential drug rehab program-will have friend care for him post-op Housing: House Are you a primary aged or disabled care worker to a significant other at home: No Do you presently have visiting nurse or other home services: No Alcohol intake: never Patient Tobacco Use Status: Current everyday Tobacco user Tobacco use type: Cigarette Cigarette Packs Per Day: 1 Cigarettes Per Day: 10 Years Smoked: 28 Substance Use Type: Marijuana Substance Use Type Other:: last used 09/2023-is in treatment program Have you been hit, kicked, punched, or otherwise hurt by someone within the past year? If so, by whom?: No Spiritual Healthcare Practices: none Sabianism Healthcare Practices: Pentecostal Cultural Healthcare Practices: none Are you DNR?: No Advance Directives: No (mother is listed as primary contact) Advance Directives Information Provided: Yes Advance Directives on File: No Recently lost weight without trying: No Eating poorly because of decreased appetite: No Nutrition Risks: No Nutritional Risk Poor oral hygiene: No Meds Allergies Allergy/AdvReac Type Severity Reaction Status Date / Time No Known Allergies Allergy Verified 05/16/24 10:54 Home Medications ?Medication ?Instructions ?Recorded ?Confirmed ?Last Taken ?Type clonidine HCl 0.1 mg tablet 0.1 mg PO QAM 05/16/24 06/07/24 Unknown History trazodone 100 mg tablet 100 mg PO BEDTIME 05/16/24 06/07/24 Unknown History buprenorphine 8 mg-naloxone 2 mg 1 film sublingual DAILY 06/09/24 06/09/24 06/02/24 History sublingual film (Suboxone) Exam Exam Date and Time: 06/09/24 0900 Height,Weight and Vital Signs: Height 5 ft 6 in Weight 78.925 kg Vital Signs Temperature 99.3 F 06/09/24 08:23 Pulse Rate 65 06/09/24 08:23 Respiratory Rate 16 06/09/24 08:23 Blood Pressure 120/46 L 06/09/24 08:23 Pulse Oximetry 98 06/09/24 08:23 Oxygen Delivery Method Room Air 06/09/24 08:23 Temperature 99.3 F 06/09/24 08:23 Pulse Rate 65 06/09/24 08:23 Respiratory Rate 16 06/09/24 08:23 Blood Pressure 120/46 L 06/09/24 08:23 Pulse Oximetry 98 06/09/24 08:23 Oxygen Delivery Method Room Air 06/09/24 08:23 Airway Mallampati Class: III TM Dist: >3cm Neck ROM: Full Loose/Missing/Broken Teeth: No (patient denies any loose or broken teeth) Heart: S1S2 Lungs: CTAB Assessment and Plan Assessment Anesthesia Assessment: Anesthesia Plan Discussed and Chart Reviewed Final Anesthetic Review Family History of Problems with Anesthesia: No History of Problems with Anesthesia: No NPO: Yes Final Preanesthetic Review: No Changes in Pt Med Stat, Meds/Allgs Chart Reviewed, Consent Obtained/Reviewed and Anes Risks/Benef Reviewed Patient Risk: Low Procedure Risk: Low Anesthetic Plan Anesthetic Plan: MAC: and Agree w/ Assess. and Plan Disposition: Standard PACU
[2024-06-09] MEDS: ceFAZolin Sodium/Dextrose,Iso 2 GM/50 ML PIGGYBACK IV (09:13)
[2024-06-09] MEDS: fentaNYL citrate/PF 100 MCG/2 ML VIAL 50 MCG IVPUSH ×2 (10:30→10:45)
[2024-06-09] MEDS: oxyCODONE HCl Immed Release 5 MG TABLET PO (10:54)
--- NOTE | 2024-06-10 09:39 | P.OP_ITS ---
Operative Note Operative Note Date of Service: 06/09/24 Narrative: Preoperative diagnosis: [] Symptomatic enlarging right inguinal hernia Postop diagnosis: [] The same Procedure [] open right inguinal herniorrhaphy with Bard mesh Surgeon: [] Aram Pain Medicine Physician: [] Wyatt Type of Anesthesia: [] Mac Indication for surgery: [] Patient had a very large indirect hernia sac and as well as a moderately sized direct hernia. Findings: [] Patient brought to the operating room, placed on operative table in supine position, after an adequate level of MAC anesthesia was induced, the right groin was prepped and draped in usual sterile fashion. Using an ilioinguinal block followed by local wound infiltration with 0.5% Marcaine/1% lidocaine, a small para inguinal incision was made and carried down through skin, subcutaneous tissue, Carolyn's fascia. External oblique fibers were opened their direction with care to isolate preserve the ilioinguinal nerve throughout the procedure. Spermatic cord was identified and retracted from the field. There was marked cicatrization from the indirect hernia sac which extended almost into the scrotum. This was from the spermatic cord and reduced. Also a moderately sized direct hernia was demonstrated.. An extra-large Bard plug was placed in the indirect defect, and sutured inferiorly to the inguinal ligament, and superiorly to the transversalis fascia using interrupted 0 Ethibond suture. Grasped also covered the inguinal floor and the reduced direct hernia. At completion, graft was in good position with no evidence of any gallops or tension. Wound was irrigated, secured hemostasis, and closed in the following manner; external oblique fascia was closed using running 2-0 Vicryl suture. Carolyn's fascia was reapproximated using interrupted 3-0 Vicryl suture. Interrupted inverted deep dermal 3-0 Vicryl sutures followed by running subcuticular 4-0 Vicryl sutures were placed. Steri-Strips and sterile dressings were applied. Ipsilateral testicle was intrascrotal at completion. Sponge, needle, and instrument counts reported correct. Patient tolerated the procedure well and emerged from anesthesia in stable condition. EBL minimal
== END 2024-06-09 12:18 | disposition home or self-care (01) ==
PROVIDERS: Nurse Practitioner; Visit Provider Surgery
PROC: (CPT 49505; principal; 2024-06-09 09:20)
DX: K40.30 Unilateral inguinal hernia, with obstruction, without gangrene, not specified as recurrent (principal); F32.A Depression, unspecified; F17.210 Nicotine dependence, cigarettes, uncomplicated
CPT/HCPCS: 49505; 80307; C1781; J0131; J0690; J1100; J1885; J2003; J2250; J2704; J2795; J3010

== ENCOUNTER → 2024-06-09 07:48 | Outpatient (BNV) | payer MEDICAID, SELFPAY | PROVIDERS: Visit Provider Surgery | DX: K40.20 Bilateral inguinal hernia, without obstruction or gangrene, not specified as recurrent (principal) | CPT/HCPCS: 49505 ==

== ENCOUNTER 2024-06-20 10:28 | Outpatient (AMB) | payer MEDICAID, SELFPAY ==
--- NOTE | 2024-06-20 10:29 | MHC.OFFVIS ---
Intake Visit Reasons: s/p inguinal hernia w/mesh Intake Note: Patient here s/p open right inguinal herniorrhaphy with Bard mesh. Reports incision healing well. Patient c/o: no concerns. Taking rx pain meds as needed. Surgery: 06-09-2024 Supply And Distribution Manager Required: No Accompanied by: Self / Same As Patient Allergies No Known Allergies Allergy (Verified 05/16/24 10:54) HPI Comments Details: Patient was status post right inguinal hernia repair. He is doing well. Starting a diet. Having regular bowel habits. He is increasing his activity level. He has minimal incisional discomfort. PFSH Medical History Opioid dependence, in remission Depression Smoker Surgical History (Updated 06/20/24 @ 10:43 by Jostin Chiu MD) Incarcerated right inguinal hernia (06/09/24) Hx of hand surgery Social History Household Members Other:: is in residential drug rehab program-will have friend care for him post-op Housing: House Are you a primary clinical care leader to a significant other at home: No Do you presently have visiting nurse or other home services: No Alcohol intake: never Patient Tobacco Use Status: Current everyday Tobacco user Tobacco use type: Cigarette Cigarette Packs Per Day: 1 Cigarettes Per Day: 10 Years Smoked: 28 Substance Use Type: Marijuana Physical Exam GI Other: Abdomen is soft, benign incision clean dry and intact healing very well Assessment & Plan Assessment & Plan (1) Status post inguinal hernia repair using synthetic patch: Code(s): Z98.890 - Other specified postprocedural states; Z87.19 - Personal history of other diseases of the digestive system Category: Medical Plan Patient was been given local instructions including avoiding strenuous activities next few weeks time and will otherwise follow-up p.r.n.. Jennirin script provided. Coding Level of Care Code Global (62616) Diagnoses Status post inguinal hernia repair using synthetic patch Z98.890; Z87.19
== END 2024-06-20 10:34 | disposition home or self-care (01) ==
PROVIDERS: PCP Nurse Practitioner; Visit Provider Surgery
DX: Z98.890 Other specified postprocedural states (principal); Z87.19 Personal history of other diseases of the digestive system
CPT/HCPCS: 99024

== ENCOUNTER → 2024-06-20 10:28 | Outpatient (BNVA) | payer MEDICAID, SELFPAY | PROVIDERS: PCP Nurse Practitioner; Visit Provider Surgery | DX: Z09 Encounter for follow-up examination after completed treatment for conditions other than malignant neoplasm (principal); Z87.19 Personal history of other diseases of the digestive system; Z98.890 Other specified postprocedural states | CPT/HCPCS: 99212 ==

== ENCOUNTER 2024-09-09 11:25 | Outpatient (REF) | payer MEDICAID, SELFPAY ==
--- OUTSIDE RECORDS SUMMARY | 2024-09-09 12:20 | XMS_ITS | Encounter Summary ---
Author Organization [employer] Address 75 [facility] 7t [place] [address] Care Team Providers Care Mattress Filler Name Role Phone Rika Schmidt IGNACIA Primary Care Provider [phone] Reason for Visit * Reason Comments OBAT F/U Encounter Details Date Type Department Care Team (Latest Contact Info) Description 09/09/2024 9:30 AM EDT Office Visit [facility] [address] [place] [address] Deni Mejia MD [address] [place] [address] Uncomplicated opioid use (Primary Dx); Tobacco use [...] Care Team (Late st Contact Info) Description 09/23/2024 10:00 AM EDT Clinical Support [address] [address] Kary Earl, RN Scheduled Orders Name Type Priority Associated Diagnoses Orde r Schedule Drug Monitoring, Fentanyl, with Confirmation, Urine Lab Routine Uncomplicated opioid use Ordered: 09/09/2024 documented as of this encounter Goals Goal Patient Goal Type Associated Problems Recent Progress Patient-Stated? Author Start process of getting learner's permit General On track( 025 12:02 PM EST) Yes Kary Earl, RN Increase coping skills to promote long-term recovery and improve ability to perform daily activities General On track( 025 4:45 PM EDT) No Kary Earl, RN Note: He was unable to turn down an offer for pressed pill this week. He was not able to control his frustration well. documented as of this encounter Procedures Procedure Name Priority Date/Time Associated Diagnosis Comments POCT YAHIR-14 URINE DRUG SCREEN Routine 09/09/2024 9:45 AM EDT Uncomplicated opioid use documented in this encounter Results * POCT YAHIR-14 Urine Drug Screen (09/09/2024 9:45 AM EDT) THC Positive Cocaine Screen, Urine Positive Opiate Screen, Urine Negative Methamphetamine Screen Urine Negative Amphetamine Screen, Urine Negative Benzodiazepines Screen, Urine Negative Barbiturate Screen, Urine Negative Methadone Screen, Urine Positive Buprenophine Screen, Urine Positive TCA, Urine Negative MDMA Urine Negative ng/mL Oxycodone Screen, Urine Negative Phencyclidine (PCP), Urine Negative Fentanyl, Urine Positive Urine Urine specimen obtained by clean catch procedure / Unknown 09/09/2024 9:45 AM EDT Deni Mejia MD POINT OF CARE TEST ENTER/EDIT ORDERABLES Final Result documented in this encounter Visit Diagnoses Diagnosis Uncomplicated opioid use- Primary Tobacco use disorder documented in this encounter Additional Health Concerns Assessment Noted Time PHQ-9 Depression Total Score: 0 01/29/20 24 10:30 AM EDT documented as of this encounter Care Teams Mattress Filler Relationship Specialty Start Date End Date Rika Schmidt NP [address] [place] [id number] PCP - General Family Medicine 01/15/23 John Solis Train DispatcherApprenticeship Consultant 04/27/24 documented as of this encounter
[2024-09-13 11:17] LABS: Fentanyl, Ur 23.2; Norfentanyl, Ur 273.1
== END 2024-09-09 11:26 | disposition home or self-care (01) ==
LOC: HO.HHCLNP 11:25
PROVIDERS: Visit Provider Emergency Medicine
DX: F11.90 Opioid use, unspecified, uncomplicated (principal)
CPT/HCPCS: 80354